=== PATIENT | male | born 1950 | race African-American/Black ===

== ENCOUNTER 2016-10-18 08:05 | Observation (INO) ==
[2016-10-18] MEDS ORDERED: DILTIAZEM 100 MG VIAL.ADD IV STA (08:21)
[2016-10-18] MEDS ORDERED: DILTIAZEM 50 MG/10 ML VIAL IV ONE (08:25)
[2016-10-18] MEDS ORDERED: DILTIAZEM 100 MG VIAL.ADD IV ONE (08:25)
[2016-10-18] MEDS ORDERED: DILTIAZEM INJ 100 MG in SODIUM CHLORIDE 0.9% 100 ML IV SCH (08:30)
[2016-10-18 08:36] LABS: Basophils % 0.7 % (0.0-0.8); Eosinophils # 0.1 10*3/uL (0.0-0.87); Eosinophils % 2.3 % (0.00-10.9); Hematocrit 42.8 VOL% (42.0-52.0); Hemoglobin 14.7 GM/DL (14.0-18.0); Immature Granulocytes % 0.2 %; Immature Granulocytes Absolute 0.01 #; Lymphocytes # 2.2 10*3/uL (1.4-4.0); Lymphocytes % 37.9 % (21.2-54.2); Mean Corpuscular HGB Conc 34.3 GM/DL (32-36); Mean Corpuscular Hemoglobin 32 PG (27-34); Mean Corpuscular Volume 93.7 FL (87-102); Mean Platelet Volume 10.1 FL (9.6-12.0); Monocytes # 0.7 10*3/uL (0.11-0.8); Monocytes % 11.7 % (1.7-12.7); Neutrophils # 2.7 10*3/uL (1.4-7.4); Neutrophils % 47.2 % (38.7-73.9); Platelet Count 147 T/CUMM (130-400); Red Blood Count 4.57 MC/CUMM (3.8-5.5); Red Cell Distribution Width 14.1 % (9.3-17.3); White Blood Count 5.8 T/CUMM (4-12)
[2016-10-18 08:46] LABS: INR 1.1; PT Patient Result 11.6 SECS
--- NOTE | 2016-10-18 08:54 | Emergency Department Note ---
Orquidea Zarate Hilary, am scribing for, and in the presence of, Bc Watson MD 08: 36. Shirley Zarate James D, MD, personally performed the services described in this documentation, ascribed by Elba Heard in my presence, and it is both accurate and complete [id number] . Arrival - Arrival Chief Complaint: Syncope Stated Complaint: syncope Mode of Arrival: Stretcher Limitations: No Limitations Source: Patient, Significant other (), RN Notes Reviewed Time Seen by Provider: 10/18/16 08:20 - History of Present Illness HPI Narrative: Pt is a 66 y/o black male brought into the ED via EMS for c/o chest pain which onset 3 days ago. Pt confirms SOB, moderate CP, and left shoulder pain but denies abdominal pain. Pts states that he fell out in orthodoxy yesterday. Pt is a poor historian and isn't talking or answer questions with more than one word. No other complaints or problems stated in the ED. Onset (ago): day(s) Consistency: intermittent Severity: moderate Allergies/Adverse Reactions: Allergies Allergy/AdvReac Type Severity Reaction Status Date / Time No Known Allergies Allergy Verified 10/18/16 08:43 Home Medications: Home Medications Medication Instructions Recorded Confirmed Type Aspirin [Ecotrin] 81 mg PO DAILY 01/18/15 05/28/16 History Simvastatin [Zocor] 40 mg PO DAILY 01/18/15 05/28/16 History cloNIDine TAB [Catapres Tab] 0.2 mg PO DAILY 01/18/15 05/28/16 History Calcium Carbonate Chew [Tums] 3 tablet PO QID 05/04/16 05/28/16 History Cyclobenzaprine [Flexeril] 10 mg PO Q12H PRN #10 tablet 05/28/16 Rx Review of System - Review of System 12 point system: reviewed and no additional remarkable complaints except as stated - Review of System Respiratory: Present: respiratory distress (SOB) Cardiovascular: Present: chest pain, syncope (1 day ago) Musculoskeletal: Present: arm pain (left shoulder pain) Medical,Surgical,& Family Hx - Medical History Cardio: History of: Hypertension, [place] HEENT: History of: Eye Problem (GLASSES) Endocrine: History of: Dyslipidemia Respiratory: History of: Obstructive Sleep Apnea (SLEEPS WITH CPAP), Pneumonia Renal: History of: Dialysis (M, W, F), Renal Failure Musculoskeletal: No history of: Back/Neck Problems Other: No history of: Anesthesia Reactions, Cancer - Surgical History Cardiac Surgeries: Sugical HX of: Cardiac Catheterization (STENT) HEENT Surgeries: Surgical HX of: Tonsilectomy & Adenoidectomy Patient denies: Eye Surgery Abdominal Surgeries: Surgical HX of: Colonoscopy, EGD, Hernia Repair Patient denies: Appendectomy, Cholecystectomy Orthopedic Surgeries: Surgical HX of;: Orthopedic Surgery (right hip replacement (total)), Total Hip Replacement (RIGHT) - Family History Family History: Reports;: Family Cancer (brother brain), Family Diabetes (mother ), Family Hypertension (mother father), Family Stroke - Social History Smoking Status: Never smoker Exam Physical Examination: GENERAL: This is a pale diaphoretic male, well-developed in no apparent distress. VITAL SIGNS: Temperature: Pulse: Respiratory: Blood Pressure: O2Sat: HEENT: Head is normocephalic and atraumatic. Pupils are equally round and reactive to light. Extraocular movement are intact. Oropharynx is benign with moist mucous membranes. NECK: Neck is soft and supple without tenderness. There are no masses. There is no lymphadenopathy. LUNGS: Lungs are clear to auscultation bilaterally. Chest rises symmetrically. There is no chest wall tenderness. CV: Heart is tachycardic rate and rhythm without murmurs, rubs, or gallops. ABDOMEN: Abdomen is soft, non-tender to palpation. There are no abnormal masses palpated. There is no organomegaly. Bowel sounds are present and active. SKIN: Skin is palor, warm and dry. No rash. EXTREMITIES: Patient has full range of motion without tenderness. There is no pedal edema. NEUROLOGIC: Awake, alert, and oriented x4. Cranial nerves II through XII are grossly intact. There are no motorsensory deficits. PSYCHIATRIC: Normal affect. Normal mood. Vital Signs: Vital Signs Temperature 97.0 F L 10/18/16 08:05 Pulse Rate 146 H 10/18/16 08:05 Respiratory Rate 18 10/18/16 08:05 Blood Pressure 135/80 10/18/16 08:05 Course Course Narrative: Cardizem bolus and infusion given. Patient had marked improvement in his symptoms. Near syncope resolved. Heart rate decreased into the 80s-90s. - Consultations Consultation #1: Discussed with hospitalist. Patient will be admitted to their service. Time: 09:32 Results - Labs CBC & BMP: 10/18/16 08:29 10/18/16 08:29 Lab Results: I have reviewed the patients labs Labs: Laboratory Tests 10/18/16 08:29 WBC 5.8 RBC 4.57 Hgb 14.7 Hct 42.8 Laboratory Tests 10/18/16 10/18/16 08:29 08:29 INR 1.1 PT Patient/Control Mix 11.6 Sodium 137 Potassium 3.9 Chloride 97 L Carbon Dioxide 26 Anion Gap 17.9 H BUN 48 H Creatinine 16.30 H BUN/Creatinine Ratio 2.00 L Magnesium 2.5 H Troponin I 0.127 H Albumin 2.9 L Globulin 3.9 H Albumin/Globulin Ratio 0.7 L - EKG EKG results: interpreted by ERMD - Impressions EKG: Narrow complex tachycardia with incomplete right bundle branch block, ST segment depression laterally and inferiorly consistent with ischemia. Left axis deviation. - Diagnostic Findings Procedure: Chest x-ray: image reviewed by me (Cardiomegaly, no infiltrates, no pleural effusions. Elevated left hemidiaphragm.) Disposition Clinical Impression: Narrow complex tachycardia, Syncope Case discussed with: patient Disposition: Disch To Home/Self Care Condition: Stable Time of Disposition: 09:33
--- NOTE | 2016-10-18 08:56 | XRay Report ---
XR chest 1V portable Indication: SOB Comparison: Chest x-ray dated May 28, 2016 Technique: Single frontal view of the chest. Findings: Continued borderline cardiomegaly. Continued mild left basilar atelectasis with elevation of left hemidiaphragm. It would be difficult to completely exclude underlying infection. Visualized osseous and surrounding soft tissue structures appear grossly unchanged. IMPRESSION: As above. PROCEDURE INTERPRETED AT [facility] DEPARTMENT OF RADIOLOGY Final Report Signed by: Dr Vick Lopez
[2016-10-18 08:59] LABS: Albumin 2.9 G/DL (3.4-5.0); Bilirubin,Total 0.5 MG/DL (0.2-1.0); Calcium 9.1 MG/DL (8.5-10.1); Magnesium 2.5 MG/DL (1.8-2.4); Osmolality,Calculated 285.8 MOS/KG (273-304); Potassium 3.9 MMOL/L (3.5-5.1); Total Protein 6.8 G/DL (6.4-8.3)
[2016-10-18 09:00] LABS: Troponin I Only 0.127 NG/ML (0.00-0.045)
[2016-10-18] MEDS ORDERED: MORPHINE 2 MG/1 ML SYRINGE IV PRN (10:10)
[2016-10-18] MEDS ORDERED: ACETAMINOPHEN 325 MG TABLET PO PRN (10:10)
[2016-10-18] MEDS ORDERED: ONDANSETRON 4 MG/2 ML VIAL IV PRN (10:10)
--- NOTE | 2016-10-18 10:23 | Hospitalist History & Physical ---
Assessment and Plan - Time spent with patient Time spent with patient: Greater than 30 minutes (1) Syncope Status: Acute Assessment and plan: Patient experienced a syncopal episodes in the last 2 days. Patient states that he last had an echo in 2016, however there are no hospital records of that echocardiogram. We will order a complete syncopal workup including head CT, carotid Dopplers, echocardiogram. Patient has been admitted for observation. Current Visit: Yes (2) ESRD (end stage renal disease) Status: Acute Assessment and plan: Patient currently on hemodialysis and dialyzes MWF. Last dialyzed on Tuesday. Attempted to dialyzed this morning before experiencing a syncopal episode we will consult nephrology for possible dialysis today and recommendations. Current Visit: No (3) Narrow complex tachycardia Status: Acute Assessment and plan: Patient was tacky upon admission with a heart rate of 145-146. Patient was placed on Cardizem drip in the ED with resultant heart rate in the mid 70s to mid 80s. Patient has been admitted to telemetry for further evaluation and monitoring. Current Visit: Yes History of Present Illness Chief complaint: syncope, chest pain History of present illness: Mr. Wolfe is a 66 year old -[place] male with a past medical history significant for hypertension, hyperlipidemia, GERD, previous [place] with stent placement in 2000 who presents to the emergency room via EMS for further evaluation of chest pain and syncope. Patient reports that he was at dialysis this morning when he experienced an apparent syncopal episode. Patient notes that he was last dialyzed on Tuesday with report of approximately 3400 cc. He states that he felt funny all weekend and passed out briefly at religion on yesterday, waking up in a cold sweat. Patient thought nothing of it and went on to dialysis this morning, however, he passed out again in the dialysis chair before even beginning dialysis and was rushed to the emergency room via EMS. Patient admits to feeling funny over the weekend and lightheaded this morning on his way to dialysis. He states that he "sat down in a dialysis chair and the next thing he remembers he was in the ER". He denies any palpitations, radiating chest pain, nausea vomiting diarrhea, numbness or tingling. EKG on admission revealed junctional tachycardia with possible a flutter, heart rate 145. Significant lab work: Sodium 137, potassium 3.9, chloride 97, CO2 26 , BUN 40, creatinine 16.30, glucose 101, calcium 9.1, magnesium 2.5. Troponin I 0.127. Patient was started on Cardizem drip in the ED with appropriate response. Heart rate is now down to mid 70s to mid 80s. Case has been discussed with Dr. Watson, ER physician, and Dr. Fajardo, admitting physician, and the patient will be admitted to the hospital medicine service for the evaluation and treatment. He is listed as full code. Home Medications Medication Instructions Recorded Confirmed Type Aspirin [Ecotrin] 81 mg PO DAILY 01/18/15 05/28/16 History Simvastatin [Zocor] 40 mg PO DAILY 01/18/15 05/28/16 History cloNIDine TAB [Catapres Tab] 0.2 mg PO DAILY 01/18/15 05/28/16 History Calcium Carbonate Chew [Tums] 3 tablet PO QID 05/04/16 05/28/16 History Cyclobenzaprine [Flexeril] 10 mg PO Q12H PRN #10 tablet 05/28/16 Rx Allergies Allergy/AdvReac Type Severity Reaction Status Date / Time No Known Allergies Allergy Verified 10/18/16 08:43 Medical,Surgical,& Family Hx - Medical History Cardio: History of: Hypertension, [place] HEENT: History of: Eye Problem (GLASSES) Endocrine: History of: Dyslipidemia Respiratory: History of: Obstructive Sleep Apnea (SLEEPS WITH CPAP), Pneumonia Renal: History of: Dialysis (M, W, F), Renal Failure Musculoskeletal: No history of: Back/Neck Problems Other: No history of: Anesthesia Reactions, Cancer - Surgical History Cardiac Surgeries: Sugical HX of: Cardiac Catheterization (STENT) HEENT Surgeries: Surgical HX of: Tonsilectomy & Adenoidectomy Patient denies: Eye Surgery Abdominal Surgeries: Surgical HX of: Colonoscopy, EGD, Hernia Repair Patient denies: Appendectomy, Cholecystectomy Orthopedic Surgeries: Surgical HX of;: Orthopedic Surgery (right hip replacement (total)), Total Hip Replacement (RIGHT) - Family History Family History: Reports;: Family Cancer (brother brain), Family Diabetes (mother ), Family Hypertension (mother father), Family Stroke - Social History Smoking Status: Never smoker Frequency of Alcohol Use: None Type of Drug Use: None Marital Status: Lives With:: Spouse Functional capacity: independent ambulation - Constitutional Constitutional: Present: headache(s). Absent: chills, fever(s), weakness - EENT Eyes: Absent: blurry vision, loss of vision Ears: Absent: decreased hearing, ear pain Nose, mouth and throat: Absent: sore throat, vertigo - Cardiovascular Cardiovascular: Present: chest pain at rest, lightheadedness, palpitations. Absent: dyspnea, radiating jaw, neck or arm pain - Respiratory Respiratory: Absent: cough, dyspnea, wheezing - Gastrointestinal Gastrointestinal: Absent: abdominal pain, constipation, diarrhea, nausea, vomiting - Genitourinary Genitourinary: Absent: difficulty urinating, dysuria - Musculoskeletal Musculoskeletal: Absent: arthralgias, joint swelling - Neurological Neurological: Present: dizziness, syncope - Psychiatric Psychiatric: Absent: anxiety, depression - Endocrine Endocrine: Present: cold intolerance. Absent: heat intolerance - Hematologic/Lymphatic Hematologic/Lymphatic: Absent: easy bleeding, easy bruising Exam - Constitutional Vitals: Period Temp Pulse Resp BP Sys/Arias Pulse Ox Last 24 Hr 97.0 F-97.0 F 72-146 18-18 111-138/80-92 98-100 Exam: General appearance: overweight, no acute distress - Head Head exam: Present: normocephalic, atraumatic - Eye Eye exam: Present: EOMI. Absent: conjunctival injection, nystagmus Pupils: Present: JUSTIN, normal accommodation - ENT ENT exam: Present: normal exam, normal external ear exam - Neck Neck exam: Present: normal inspection. Absent: lymphadenopathy, tenderness, thyromegaly - Respiratory Respiratory exam: Present: clear to auscultation bilaterally. Absent: rales, rhonchi, wheezes - Cardiovascular Cardiovascular exam: Present: regular rate and rhythm. Absent: carotid bruit, gallop, rubs - GI/Abdominal GI/Abdominal exam: Present: normal bowel sounds. Absent: ascites, distended, mass - Extremities Exam Extremities exam: Present: normal inspection, normal capillary refill. Absent: edema - Back Exam Back exam: Absent: CVA tenderness (L), CVA tenderness (R) - Neurological Exam Neurological exam: Present: alert, oriented X3 - Psychiatric Psychiatric exam: Present: normal affect, normal mood - Skin Skin exam: Present: normal color, warm, dry Results - Labs CBC & BMP: 10/18/16 08:29 10/18/16 08:29 Lab Results: I have reviewed the past 24 hour labs - EKG EKG results: interpreted by RODRIGUEZ EKG shows: tachycardia - Diagnostic Findings Procedure: Chest x-ray: image reviewed by me, report reviewed by me
--- NOTE | 2016-10-18 10:45 | EKG Report ---
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
[2016-10-18] MEDS: ENOXAPARIN 30 MG/0.3 ML SYRINGE SUBCUT SCH (11:35)
--- NOTE | 2016-10-18 11:49 | CT Report ---
CT head/brain wo con Indication: Syncope Comparison: None Technique: Multiple axial tomographic images of the brain were obtained without the use of intravenous contrast. Findings: Midline structures are nondisplaced. Mild global volume loss present. Mild periventricular and subcortical hypoattenuation noted which is nonspecific but consistent with chronic microvascular ischemic change. Demyelinating process and vasculitis less likely considerations. Probable partially visualized mucous retention cyst within the left maxillary sinus. Atherosclerotic calcifications demonstrated. There is mild prominence of the sella without associated soft tissue suggesting empty sella. Bilateral mastoid air cells are clear. IMPRESSION: No acute intracranial abdomen are demonstrated. Probable mild chronic microvascular ischemic change and volume loss. The CT exam was performed using one or more of the following dose reduction techniques: Automated exposure control, adjustment of the mA and/or kV according to patient size, or use of iterative reconstruction technique. PROCEDURE INTERPRETED AT [facility] DEPARTMENT OF RADIOLOGY Final Report Signed by: Dr Vick Lopez
[2016-10-18 12:02] LABS: Risk Ratio 3.27; Thyroid Stimulating Hormone 0.505 uIU/ml (0.358-3.74); VLDL CHOLESTEROL 15.8 MG/DL
--- NOTE | 2016-10-18 13:14 | Nephrology Consult Note ---
History of Present Illness Chief complaint: Passing out History of present illness: Mr. Wolfe is a 66 year old male with end-stage renal disease who dialyzes on a Tuesday basis in [facility]. Patient was admitted to the hospital this morning when he passed out at the dialysis center today. The patient had not been put on dialysis yet when he was about to get put on and subsequently passed out. The next thing the patient remembers is waking up in the emergency room. The patient states he passed out the day prior to admission as well. He does recall having a couple of sweats the past couple of days and feeling a little vaclept but does not report any fever. The patient also reports having a cough but states he did not think much of it and this cough is been nonproductive in nature. The patient does state he has had some chest pain today prior to his passing out. The patient does have a history of heart disease and had a coronary stent over 10 years ago. The patient does not have a tunneled dialysis catheter he uses a right arm AV access. The patient states he had dialysis Tuesday and had a little bit of a heavy pull with over 3 L of fluid removed going below his usual dry weight. The patient also states that since starting dialysis he has been slowly coming off his blood pressure medications and that actually last week his clonidine was decreased from 0.2 mg twice daily to 0.1 mg daily. The patient is seen on hemodialysis presently and is tolerating this well. ROS: Head - denies headaches ENT - denies sore throat Lymphatics - denies lymphadenopathy Hematology - denies bleeding problems Heart -positive chest pain Lungs - denies shortness of breath Abdomen - denies abdominal pain Musculoskeletal - denies arthritis Skin - denies rash Neurology - denies stroke General - denies fever PE: General: in no acute distress Eyes: Pupils are round and reactive, conjunctivae are clear ENT: Nose is clear, O/P is benign Neck: Supple, no thyromegaly Lymphatics: No cervical, supraclavicular or axillary adenopathy Heart: Regular rate and rhythm, no edema Lungs: Clear to auscultation anteriorly, chest expansion symmetric Abdomen: Soft, normoactive bowel sounds, no hepatomegaly Musculoskeletal: No joint erythema or effusions or joint asymmetry Skin: Normal turgor, normal hydration, no rash Neuro/Psych: Alert and cooperative with fair insight Home Medications Medication Instructions Recorded Confirmed Type Aspirin [Ecotrin] 81 mg PO DAILY 01/18/15 10/18/16 History Simvastatin [Zocor] 40 mg PO DAILY 01/18/15 10/18/16 History cloNIDine TAB [Catapres Tab] 0.1 mg PO DAILY 01/18/15 10/18/16 History Calcium Carbonate Chew [Tums] 3 tablet PO QID W/MEALS & HS 05/04/16 10/18/16 History Allergies Allergy/AdvReac Type Severity Reaction Status Date / Time No Known Allergies Allergy Verified 10/18/16 08:43 Medical,Surgical,& Family Hx - Medical History Cardio: History of: Hypertension, [place] HEENT: History of: Eye Problem (GLASSES) Endocrine: History of: Dyslipidemia Respiratory: History of: Obstructive Sleep Apnea (SLEEPS WITH CPAP), Pneumonia Renal: History of: Dialysis (M, W, F), Renal Failure Gastrointestinal: History of: GERD Musculoskeletal: No history of: Back/Neck Problems Other: No history of: Anesthesia Reactions, Cancer - Surgical History Cardiac Surgeries: Sugical HX of: Cardiac Catheterization (STENT) HEENT Surgeries: Surgical HX of: Tonsilectomy & Adenoidectomy Patient denies: Eye Surgery Abdominal Surgeries: Surgical HX of: Colonoscopy, EGD, Hernia Repair Patient denies: Appendectomy, Cholecystectomy Orthopedic Surgeries: Surgical HX of;: Orthopedic Surgery (right hip replacement (total)), Total Hip Replacement (RIGHT) - Family History Family History: Reports;: Family Cancer (brother brain), Family Diabetes (mother ), Family Hypertension (mother father), Family Stroke - Social History Smoking Status: Former smoker (Quit 35 years ago) Frequency of Alcohol Use: Occasionally Type of Drug Use: None Exam - Vital Signs Vital signs: Period Temp Pulse Resp BP Sys/Arias Pulse Ox Last 24 Hr 97.0 F-98.3 F 68-146 18-18 111-138/78-92 98-100 Results - Labs CBC & BMP: 10/18/16 08:29 10/18/16 08:29 Assessment and Plan (1) ESRD (end stage renal disease) Status: Acute Assessment and plan: We will continue his hemodialysis support while here, will minimize his ultrafiltration today. Current Visit: No (2) History of hypertension Status: Acute Assessment and plan: This patient's blood pressure presently is around 120-130 on the systolic side, his antihypertensives have been getting reduced lately on dialysis. Current Visit: Yes (3) Coronary artery disease Status: Acute Assessment and plan: Patient had a coronary artery stent over 10 years ago Current Visit: Yes (4) Secondary hyperparathyroidism Status: Acute Assessment and plan: Patient takes Tums for phosphate binder Current Visit: Yes (5) Obesity Status: Acute Current Visit: Yes (6) Narrow complex tachycardia Status: Acute Assessment and plan: Patient was noted to have a heart rate of around 145 this morning. He he has been started on diltiazem. Current Visit: Yes (7) Syncope Status: Acute Assessment and plan: The patient had a fairly vigorous pull on Tuesday's dialysis session. He has felt a little bit sluggish since then and had some sweats Tuesday when he passed out. I agree with holding his clonidine presently. Current Visit: Yes
--- NOTE | 2016-10-18 14:03 | EKG Report ---
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
--- NOTE | 2016-10-18 15:54 | Cardiology Consult Note ---
Assessment and Plan - Time spent with patient Time spent with patient: Greater than 30 minutes (1) Coronary artery disease Status: Chronic Assessment and plan: SEE PLAN OF CARE LISTED BELOW Current Visit: Yes (2) History of hypertension Status: Chronic Assessment and plan: SEE PLAN OF CARE LISTED BELOW Current Visit: Yes (3) Narrow complex tachycardia Status: Resolved Assessment and plan: SEE PLAN OF CARE LISTED BELOW Current Visit: Yes (4) Syncope Status: Resolved Assessment and plan: SEE PLAN OF CARE LISTED BELOW Current Visit: Yes (5) ESRD (end stage renal disease) Status: Chronic Assessment and plan: SEE PLAN OF CARE LISTED BELOW Current Visit: No (6) Hypertension Status: Chronic Assessment and plan: SEE PLAN OF CARE LISTED BELOW Current Visit: No History of Present Illness - Data of Consult Patient: known to practice within the last 3 years Consult date: 10/18/16 Requesting Physician: Jenni Fajardo - Consult Narrative Reason for consult: syncope, chest pain, atrial flutter History of present illness: 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 LILIAM GIBBONS Calvin, 66BM, routinely followed by Dr. Almonte. He was last seen in cardiology clinic March 04, 2016. Risk factors include: Known coronary artery disease (S/P PCI Diagonal 2000), hypertension, dyslipidemia, obesity. History of end stage renal disease requiring hemodialysis. March 18, 2016 Cardiolite stress test revealed low risk results. Last cardiac catheterization April 2005 (see report below). Patient presented to the emergency department this morning after experiencing a syncopal episode prior to beginning hemodialysis. Patient denies having had chest pain, heaviness, tightness, shortness of breath or heart racing prior to syncope. He states he had no warning signs and simply "woke up" in the emergency department. Tuesday, patient was attending christianity when he experienced a syncopal episode which lasted approximately 1 or 2 minutes, witnessed by others without seizure activity. He had not had breakfast however he usually does not eat breakfast. Tuesday evening around 5 PM, he began to feel weak in general but no chest pain, heaviness or tightness. Denies loss of bowel or bladder during his syncopal episodes. Upon arrival to the ED, patient was noted to be in a fast heart rate of 145 bpm , possible atrial flutter. He was diaphoretic. EKG does reveal ST deviation and moderate T-wave abnormality laterally but minimally changed since prior EKG from clinic. Troponins elevated at 0.257 - 0.483. (CPK, CK-MB have now been ordered.) Patient reports when he arrived to the emergency department he felt at left sided chest pressure. This lasted approximately 30 minutes, without radiation, nausea, vomiting. He is unable to write the discomfort on a scale of 1-10 and he is currently chest pain-free. He can identify no aggravating factors nor any alleviating factors. Patient reports he is normally very active. Tuesday, 6 days ago, patient states he cut 1-2 acres of grass with a push mower and can perform those activities without chest pain, heaviness, tightness or shortness of breath. April 20, 2005 [facility] revealed the followin. Significant disease in the mid to distal diagonal branch, and an RV marginal. Mild disease in other vessels. 2. No significant disease in the major vessels. 3. Moderate global left ventricular systolic dysfunction with global hypokinesis number next mild elevation LVEDP. 4. Patent prior stented site of the proximal diagonal. I will add CPK, CK-MB to his lab draws with his troponin. Continue to monitor his telemetry. I have seen no actual atrial flutter however given the heart rate on arrival it very well may be a flutter. Echocardiogram has been ordered. February 2016, it appears one was ordered from clinic however these results are not available. D-dimer has been ordered given his recurrent syncopal episodes. We discussed the possibility of cardiac catheterization in his future given the fact that he does have known coronary artery disease. We will continue to cycle his cardiac biomarkers. He is having no chest pain, heaviness or tightness. Of note, the patient reports that he did not have typical anginal symptoms when he required stenting of his diagonal branch. Carotid ultrasounds have been ordered, CT head reveals no acute abnormality. Orthostatic vital signs have been ordered. Will stop IV Diltiazem and transition to oral, short acting calcium channel roxy. Will further discuss with Dr. Almonte and await his recommendations. ASSESSMENT/PLAN: 1. SYNCOPE - continue to monitor telemetry for arrhythmia, echo ordered, d- dimer pending. Patient may be a candidate for event monitor at discharge if no etiology of syncope can be determined. Possibly could be considered for Reveal device. 2. ARRYTHMIA SUSPECTED TO BE ATRIAL FLUTTER - we will continue to monitor closely 3. KNOWN CAD S/P PCI DIAGONAL 2000 - denies chest pain at this time. Will continue to monitor CIE. 4. ELEVATED TROPONIN - Continue current plan of care 5. HYPERTENSION - Catapres 0.2mg daily has been discontinued. Starting low dose CCB for suspected atrial flutter 6. DYSLIPIDEMIA - FLP in the morning. Continue lipid lowering agent 7. ESRD - HD . He is on the renal transplant list and follows up with [facility] CC: Jenni Fajardo MD - Home Medications and Allergies Home Medications: Home Medications Medication Instructions Recorded Confirmed Type Aspirin [Ecotrin] 81 mg PO DAILY 01/18/15 10/18/16 History Simvastatin [Zocor] 40 mg PO DAILY 01/18/15 10/18/16 History cloNIDine TAB [Catapres Tab] 0.1 mg PO DAILY 01/18/15 10/18/16 History Calcium Carbonate Chew [Tums] 3 tablet PO QID W/MEALS & HS 05/04/16 10/18/16 History Allergies/Adverse Reactions: Allergies Allergy/AdvReac Type Severity Reaction Status Date / Time No Known Allergies Allergy Verified 10/18/16 08:43 Review of systems: REVIEW OF SYSTEMS: See HPI - Constitutional Constitutional: Denies fatigue. Absent: syncope, anorexia, night sweats - EENT Eyes: Occasional blurred vision but no loss of vision or diplopia. Ears: decreased hearing but denies ear pain, ear discharge - Cardiovascular Cardiovascular: Present: chest pain this morning at rest. Denies chest pain on exertion or dyspnea on exertion, palpitations. Reports no more lower extremity edema since starting dialysis. Absent: chest pain with deep breath, claudication - Respiratory Respiratory: Denies LUJAN, cough. Absent: wheezing, hemoptysis, change in phlegm color - Gastrointestinal Gastrointestinal: Denies constipation, abdominal pain, hematemesis, hematochezia , melena, change in bowel habits, nausea - Genitourinary Genitourinary: Absent: difficulty urinating, dysuria, urinary hesitancy, flank pain - Musculoskeletal Musculoskeletal: Present: back pain Absent: joint swelling, muscle cramps, muscle weakness - Neurological Neurological: Present: normal gait without frequent falls. Absent: hemiparesis - Psychiatric Psychiatric: Absent: anxiety, depression, difficulty concentrating - Endocrine Endocrine: Absent: cold intolerance, heat intolerance, polyuria, polyphagia, polydipsia - Hematologic/Lymphatic Hematologic/Lymphatic: Present: easy bruising. Absent: easy bleeding, easy bruisability -Integumentary Integumentary: Absent: lesions, rashes, skin breakdown Medical,Surgical,& Family Hx - Medical History Cardio: History of: CAD, Hypertension, [place] No history of: Cardiac Dysrhythmia HEENT: History of: Eye Problem (GLASSES) Endocrine: History of: Dyslipidemia Respiratory: History of: Obstructive Sleep Apnea (SLEEPS WITH CPAP), Pneumonia Renal: History of: Dialysis (M, W, F), Renal Failure Gastrointestinal: History of: GERD Musculoskeletal: No history of: Back/Neck Problems Other: No history of: Anesthesia Reactions, Cancer - Surgical History Cardiac Surgeries: Sugical HX of: Cardiac Catheterization (STENT) HEENT Surgeries: Surgical HX of: Tonsilectomy & Adenoidectomy Patient denies: Eye Surgery Abdominal Surgeries: Surgical HX of: Colonoscopy, EGD, Hernia Repair Patient denies: Appendectomy, Cholecystectomy Orthopedic Surgeries: Surgical HX of;: Orthopedic Surgery (right hip replacement (total)), Total Hip Replacement (RIGHT) - Family History Family History: Reports;: Family Cancer (brother brain), Family Diabetes (mother ), Family Hypertension (mother father), Family Stroke - Social History Smoking Status: Former smoker (Quit 35 years ago) Frequency of Alcohol Use: Occasionally Type of Drug Use: None Physical Examination Vital Signs Temp Pulse Resp BP Pulse Ox 97.0 F L 146 H 18 135/80 98 10/18/16 08:05 10/18/16 08:05 10/18/16 08:05 10/18/16 08:05 10/18/16 08:05 General: [Appears well with no apparent distress.] [Pleasant and cooperative. ] [Appears comfortable.] HEENT: [PERRL, normocephalic, atraumatic. Mucous membranes moist. No jaundice noted. Conjunctiva moist and clear, sclerae anicteric] Neck: Unable to assess for JVD due to habitus. No thyromegaly or lymphadenopathy noted. No carotid bruit appreciated Cardiac: [Regular rate and rhythm.] [No obvious murmur rub or gallop.] Lungs: [Clear to auscultation without accessory muscle use to assist the respiratory pattern.] Not requiring oxygen Abdomen: Soft, bowel sounds normoactive. Nontender and nondistended. No abdominal bruit or thrill noted. No masses noted. Musculoskeletal: No fluid collection. Decreased range of motion is noted. Extremities: No clubbing, cyanosis noted. [ No edema noted.] Upper extremity pulses 2+. Lower extremity pulses 2+. Capillary refill less than 3 seconds. Skin: No unusual lesions or rashes. No skin breakdown appreciated. Neuro: Awake, alert and oriented 3. Moves all extremities well without hemiparesis or paralysis. No essential tremor is appreciated. Result/EKG - Labs CBC & BMP: 10/18/16 08:29 10/18/16 08:29 Lab Results: I have reviewed the past 24 hour labs Labs: Laboratory Results - last 24 hr 10/18/16 10/18/16 10/18/16 08:29 08:29 08:29 WBC 5.8 RBC 4.57 Hgb 14.7 Hct 42.8 MCV 93.7 MCH 32 MCHC 34.3 RDW 14.1 Plt Count 147 MPV 10.1 Neut % (Auto) 47.2 Lymph % (Auto) 37.9 [place] % (Auto) 11.7 Eos % (Auto) 2.3 Baso % (Auto) 0.7 Neut # (Auto) 2.7 Lymph # (Auto) 2.2 [place] # (Auto) 0.7 Eos # (Auto) 0.1 Baso # (Auto) 0.0 Immature Gran % 0.2 Nucleated RBC % 0.0 Immature Gran # 0.01 Nucleated RBCs # 0.00 INR 1.1 PT Patient/Control Mix 11.6 Sodium 137 Potassium 3.9 Chloride 97 L Carbon Dioxide 26 Anion Gap 17.9 H BUN 48 H Creatinine 16.30 H GFR Calculation 4 BUN/Creatinine Ratio 2.00 L Glucose 101 Calculated Osmolality 285.8 Calcium 9.1 Magnesium 2.5 H Total Bilirubin 0.50 AST 24 ALT 23 Alkaline Phosphatase 75 Troponin I 0.127 H B-Natriuretic Peptide Total Protein 6.8 Albumin 2.9 L Globulin 3.9 H Albumin/Globulin Ratio 0.7 L Triglycerides Cholesterol LDL Cholesterol VLDL Cholesterol HDL Cholesterol Heart Disease Risk Ratio Free T4 TSH 3rd Generation 10/18/16 10/18/16 10/18/16 10:45 10:45 10:45 WBC RBC Hgb Hct MCV MCH MCHC RDW Plt Count MPV Neut % (Auto) Lymph % (Auto) [place] % (Auto) Eos % (Auto) Baso % (Auto) Neut # (Auto) Lymph # (Auto) [place] # (Auto) Eos # (Auto) Baso # (Auto) Immature Gran % Nucleated RBC % Immature Gran # Nucleated RBCs # INR PT Patient/Control Mix Sodium Potassium Chloride Carbon Dioxide Anion Gap BUN Creatinine GFR Calculation BUN/Creatinine Ratio Glucose Calculated Osmolality Calcium Magnesium Total Bilirubin AST ALT Alkaline Phosphatase Troponin I B-Natriuretic Peptide 371 H Total Protein Albumin Globulin Albumin/Globulin Ratio Triglycerides 79 Cholesterol 147 LDL Cholesterol 96.0 VLDL Cholesterol 15.8 HDL Cholesterol 45 Heart Disease Risk Ratio 3.27 Free T4 1.20 TSH 3rd Generation 0.505 10/18/16 10/18/16 10:45 12:56 WBC RBC Hgb Hct MCV MCH MCHC RDW Plt Count MPV Neut % (Auto) Lymph % (Auto) [place] % (Auto) Eos % (Auto) Baso % (Auto) Neut # (Auto) Lymph # (Auto) [place] # (Auto) Eos # (Auto) Baso # (Auto) Immature Gran % Nucleated RBC % Immature Gran # Nucleated RBCs # INR PT Patient/Control Mix Sodium Potassium Chloride Carbon Dioxide Anion Gap BUN Creatinine GFR Calculation BUN/Creatinine Ratio Glucose Calculated Osmolality Calcium Magnesium Total Bilirubin AST ALT Alkaline Phosphatase Troponin I 0.257 H D 0.483 H D B-Natriuretic Peptide Total Protein Albumin Globulin Albumin/Globulin Ratio Triglycerides Cholesterol LDL Cholesterol VLDL Cholesterol HDL Cholesterol Heart Disease Risk Ratio Free T4 TSH 3rd Generation - Diagnostic Findings Procedure: Chest x-ray: report reviewed by me, CT: report reviewed by me (CT head) - EKG EKG results: interpreted by me EKG shows: sinus rhythm
--- NOTE | 2016-10-18 16:36 | Ultrasound Report ---
History is syncope Grayscale, spectral Doppler, and color flow analysis performed and interpreted There is a mild amount of soft and partially calcified plaque in both proximal internal carotid arteries Maximum systolic velocities are 68 in the right and 61 the left Peak systolic ratios are 1.4 and the right and 1.0 on the left There is antegrade flow in both vertebral arteries Impression: Mild amount of plaque with less than 50% diameter stenoses bilaterally by NASCET criteria PROCEDURE INTERPRETED AT [facility] DEPARTMENT OF RADIOLOGY Final Report Signed by: Dr. Denia Brown
[2016-10-18 17:39] LABS: Troponin I Only 0.745 NG/ML (0.00-0.045)
[2016-10-18] MEDS: CALCIUM CARBONATE CHEW 500 MG TABLET PO SCH ×2 (17:51→21:29)
[2016-10-18] MEDS: DILTIAZEM 30 MG TABLET PO SCH ×2 (17:57→21:29)
--- NOTE | 2016-10-18 18:09 | ECHO Report ---
Aiden Torin Exam Date: 10/18/2016 13:04 Referring Physician: Technologist: Shahana Smalls RDCS Age: 66 Ht (in): 73 Wt (lb): 262 Gender: M Exam Location: [facility] Echo Indications: Syncope and collapse, End stage renal disease, Chest pain, unspecified, Essential (primary) hypertension, Hyperlipidemia, unspecified, GERD, AKSHAT, CAD with previous stent BP: 121 / 78 HR: 62 Rhythm: Sinus Technical Quality: Good IMPRESSIONS Mild left ventricular hypertrophy. Left ventricular ejection fraction is estimated at 45 - 50 %. Mild atrial enlargement in apical view (elongated RA). Mild atrial enlargement in apical view (elongated LA). Mild mitral annular calcification. Aortic valve sclerosis without stenosis or regurgitation. Pulmonary artery systolic pressure is normal. Normal pericardium without effusion. MEASUREMENTS (Male / Female) Normal Values 2D ECHO LV Diastolic Diameter PLAX 4.6 cm 4.2 - 5.9 / 3.9 - 5.3 cm LV Systolic Diameter PLAX 3.9 cm LV Fractional Shortening PLAX 15.7 % IVS Diastolic Thickness 1.1 cm 0.6 - 1.0 / 0.6 - 0.9 cm LVPW Diastolic Thickness 1.1 cm 0.6 - 1.0 / 0.6 - 0.9 cm RV Internal Dim ED PLAX 4.0 cm Aortic Root Diameter 3.3 cm LA Systolic Diameter LX 3.5 cm 3.0 - 4.0 / 2.7 - 3.8 cm FINDINGS Left Ventricle Normal left ventricular cavity size. Mild left ventricular hypertrophy. Left ventricular ejection fraction is estimated at 45 - 50 %. Right Ventricle The right ventricle is normal in size and function. Right Atrium Mild atrial enlargement in apical view (elongated RA). Left Atrium Mild atrial enlargement in apical view (elongated LA). Mitral Valve Thickened mitral valve. Mild mitral annular calcification. No mitral valve regurgitation. Aortic Valve Aortic valve sclerosis without stenosis or regurgitation. Tricuspid Valve Morphologically normal tricuspid valve without significant stenosis or regurgitation. Pulmonary artery systolic pressure is normal. Pulmonic Valve Morphologically normal pulmonic valve without significant stenosis. There is no pulmonic regurgitation. Pericardium Normal pericardium without effusion. Aorta Normal ascending aorta dimension. Shakir Almonte MD (Electronically Signed) Final Date: 18 October 2016 18:08
[2016-10-18] MEDS: SIMVASTATIN 40 MG TABLET PO SCH (21:29)
[2016-10-19 01:33] LABS: Calcium 8.7 MG/DL (8.5-10.1); Magnesium 2.3 MG/DL (1.8-2.4); Osmolality,Calculated 281.7 MOS/KG (273-304); Potassium 3.6 MMOL/L (3.5-5.1)
[2016-10-19 01:40] LABS: Troponin I Only 0.803 NG/ML (0.00-0.045)
[2016-10-19 01:45] LABS: Basophils % 0.9 % (0.0-0.8); Eosinophils # 0.2 10*3/uL (0.0-0.87); Eosinophils % 3.5 % (0.00-10.9); Hematocrit 39.4 VOL% (42.0-52.0); Hemoglobin 13.5 GM/DL (14.0-18.0); Immature Granulocytes % 0.2 %; Immature Granulocytes Absolute 0.01 #; Lymphocytes # 1.7 10*3/uL (1.4-4.0); Lymphocytes % 37.3 % (21.2-54.2); Mean Corpuscular HGB Conc 34.3 GM/DL (32-36); Mean Corpuscular Hemoglobin 32 PG (27-34); Mean Corpuscular Volume 93.1 FL (87-102); Mean Platelet Volume 10.2 FL (9.6-12.0); Monocytes # 0.6 10*3/uL (0.11-0.8); Monocytes % 12.6 % (1.7-12.7); Neutrophils # 2.1 10*3/uL (1.4-7.4); Neutrophils % 45.5 % (38.7-73.9); Platelet Count 147 T/CUMM (130-400); Red Blood Count 4.23 MC/CUMM (3.8-5.5); White Blood Count 4.5 T/CUMM (4-12)
[2016-10-19 01:55] LABS: Risk Ratio 3.7; VLDL CHOLESTEROL 43.2 MG/DL
[2016-10-19] MEDS: CALCIUM CARBONATE CHEW 500 MG TABLET PO SCH ×2 (08:53→12:40)
[2016-10-19] MEDS: DILTIAZEM 30 MG TABLET PO SCH (08:54)
[2016-10-19] MEDS: SIMVASTATIN 40 MG TABLET PO SCH (08:55)
[2016-10-19] MEDS ORDERED: PANTOPRAZOLE 40 MG TABLET PO SCH (09:00)
[2016-10-19] MEDS ORDERED: ASPIRIN EC 81 MG TABLET PO SCH (09:00)
[2016-10-19] MEDS: ENOXAPARIN 30 MG/0.3 ML SYRINGE SUBCUT SCH (10:57)
--- NOTE | 2016-10-19 11:29 | Cardiology Progress Note ---
Assessment and Plan - Time spent with patient Time spent with patient: Less than 30 minutes (1) Syncope Status: Resolved Assessment and plan: See plan of care listed below. Current Visit: Yes (2) SVT (supraventricular tachycardia) Status: Acute Assessment and plan: See plan of care listed below. Current Visit: Yes (3) Coronary artery disease Status: Chronic Assessment and plan: See plan of care listed below. Current Visit: Yes (4) Elevated troponin I measurement Status: Acute Assessment and plan: See plan of care listed below. Current Visit: Yes (5) Hypertension Status: Chronic Assessment and plan: See plan of care listed below. Current Visit: No (6) Dyslipidemia Status: Acute Assessment and plan: See plan of care listed below. Current Visit: Yes (7) ESRD (end stage renal disease) Status: Chronic Assessment and plan: See plan of care listed below. Current Visit: No Cardiology - PN: Subj Interval history: [employer]: DR. ALMONTE PCP: DR. LILIAM GIBBONS Mr. Wolfe is a 66 year old -[place]is[place] male who presented to the emergency department for further evaluation of syncopal episode and to near syncopal episodes. Upon arrival to the emergency department, Mr. Wolfe was noted to have a tachyarrhythmia and diaphoresis. EKG revealed ST deviation and moderate T-wave abnormality laterally but minimally changed since prior EKG at the clinic. He had trivial troponin elevation and had minimal left-sided chest pressure. He was found to be in SVT and was given IV Cardizem which resolved the SVT. He was then started on Cardizem at 30 mg p.o. 4 times daily. He was borderline hypotensive and his clonidine was discontinued. Today, he has maintained normal sinus rhythm with rates of 60s. His blood pressures been well controlled. At this time, he is stable from a cardiac standpoint and could possibly be discharged home to follow-up with Dr. Almonte in 2 months time. He will need to keep a blood pressure and heart rate log and bring it to his follow-up appointment. His echocardiogram on 10/18/2016 revealed: Mild left ventricular hypertrophy. Left ventricular ejection fraction is estimated at 45 - 50 %. Mild atrial enlargement in apical view (elongated RA). Mild atrial enlargement in apical view (elongated LA). Mild mitral annular calcification. Aortic valve sclerosis without stenosis or regurgitation. Pulmonary artery systolic pressure is normal. Normal pericardium without effusion. ASSESSMENT/PLAN: 1. SYNCOPE -no further episodes at this time. We will continue to monitor. 2. SVT - we will continue to monitor closely. He has had no further dysrhythmias. He has maintained in normal sinus rhythm with rates in the 60s on p.o. Cardizem. 3. KNOWN CAD S/P PCI DIAGONAL 2000 - denies chest pain at this time. Will continue to monitor CIE. 4. ELEVATED TROPONIN - Continue current plan of care 5. HYPERTENSION - Catapres 0.2mg daily has been discontinued. He was started on p.o. Cardizem for his SVT. 6. DYSLIPIDEMIA -triglycerides 216, cholesterol 148, LDL 83, HDL 40. He has been started on simvastatin 40 mg p.o. daily. 7. ESRD - HD . He is on the renal transplant list and follows up with [facility]. Dr. Almonte to follow with further plan and addendum. Exam (Progress Note) - Constitutional Vitals: Period Temp Pulse Resp BP Sys/Arias Pulse Ox Last 24 Hr 97.5 F-99.3 F 63-72 2-20 110-140/67-87 96-100 Exam: General: [Appears well with no apparent distress.] [Pleasant and cooperative. ] [Appears comfortable.] HEENT: [PERRL, normocephalic, atraumatic. Mucous membranes moist. No jaundice noted. Conjunctiva moist and clear, sclerae anicteric] Neck: Unable to assess for JVD due to habitus. No thyromegaly or lymphadenopathy noted. No carotid bruit appreciated Cardiac: [Regular rate and rhythm.] [No obvious murmur rub or gallop.] Lungs: [Clear to auscultation without accessory muscle use to assist the respiratory pattern.] Not requiring oxygen Abdomen: Soft, bowel sounds normoactive. Nontender and nondistended. No abdominal bruit or thrill noted. No masses noted. Musculoskeletal: No fluid collection. Decreased range of motion is noted. Extremities: No clubbing, cyanosis noted. [ No edema noted.] Upper extremity pulses 2+. Lower extremity pulses 2+. Capillary refill less than 3 seconds. Skin: No unusual lesions or rashes. No skin breakdown appreciated. Neuro: Awake, alert and oriented 3. Moves all extremities well without hemiparesis or paralysis. No essential tremor is appreciated. Result/EKG - Labs CBC & BMP: 10/19/16 00:49 10/19/16 00:49 Lab Results: I have reviewed the past 24 hour labs Labs: Laboratory Results - last 24 hr 10/18/16 10/18/16 10/18/16 10:45 10:45 10:45 WBC RBC Hgb Hct MCV MCH MCHC RDW Plt Count MPV Neut % (Auto) Lymph % (Auto) [place] % (Auto) Eos % (Auto) Baso % (Auto) Neut # (Auto) Lymph # (Auto) [place] # (Auto) Eos # (Auto) Baso # (Auto) Immature Gran % Nucleated RBC % Immature Gran # Nucleated RBCs # D-Dimer, Quantitative Sodium Potassium Chloride Carbon Dioxide Anion Gap BUN Creatinine GFR Calculation BUN/Creatinine Ratio Glucose Calculated Osmolality Calcium Magnesium Total Creatine Kinase CK-MB (CK-2) Troponin I B-Natriuretic Peptide 371 H Triglycerides 79 Cholesterol 147 LDL Cholesterol 96.0 VLDL Cholesterol 15.8 HDL Cholesterol 45 Heart Disease Risk Ratio 3.27 Free T4 1.20 TSH 3rd Generation 0.505 10/18/16 10/18/16 10/18/16 10:45 12:56 16:03 WBC RBC Hgb Hct MCV MCH MCHC RDW Plt Count MPV Neut % (Auto) Lymph % (Auto) [place] % (Auto) Eos % (Auto) Baso % (Auto) Neut # (Auto) Lymph # (Auto) [place] # (Auto) Eos # (Auto) Baso # (Auto) Immature Gran % Nucleated RBC % Immature Gran # Nucleated RBCs # D-Dimer, Quantitative Sodium Potassium Chloride Carbon Dioxide Anion Gap BUN Creatinine GFR Calculation BUN/Creatinine Ratio Glucose Calculated Osmolality Calcium Magnesium Total Creatine Kinase CK-MB (CK-2) Troponin I 0.257 H D 0.483 H D 0.741 H D B-Natriuretic Peptide Triglycerides Cholesterol LDL Cholesterol VLDL Cholesterol HDL Cholesterol Heart Disease Risk Ratio Free T4 TSH 3rd Generation 10/18/16 10/18/16 10/19/16 16:55 16:55 00:49 WBC 4.5 RBC 4.23 Hgb 13.5 L Hct 39.4 L MCV 93.1 MCH 32 MCHC 34.3 RDW 14.0 Plt Count 147 MPV 10.2 Neut % (Auto) 45.5 Lymph % (Auto) 37.3 [place] % (Auto) 12.6 Eos % (Auto) 3.5 Baso % (Auto) 0.9 H Neut # (Auto) 2.1 Lymph # (Auto) 1.7 [place] # (Auto) 0.6 Eos # (Auto) 0.2 Baso # (Auto) 0.0 Immature Gran % 0.2 Nucleated RBC % 0.0 Immature Gran # 0.01 Nucleated RBCs # 0.00 D-Dimer, Quantitative 1.4 Sodium Potassium Chloride Carbon Dioxide Anion Gap BUN Creatinine GFR Calculation BUN/Creatinine Ratio Glucose Calculated Osmolality Calcium Magnesium Total Creatine Kinase 234 CK-MB (CK-2) 3.4 Troponin I 0.745 H B-Natriuretic Peptide Triglycerides Cholesterol LDL Cholesterol VLDL Cholesterol HDL Cholesterol Heart Disease Risk Ratio Free T4 TSH 3rd Generation 10/19/16 10/19/16 10/19/16 00:49 00:49 00:49 WBC RBC Hgb Hct MCV MCH MCHC RDW Plt Count MPV Neut % (Auto) Lymph % (Auto) [place] % (Auto) Eos % (Auto) Baso % (Auto) Neut # (Auto) Lymph # (Auto) [place] # (Auto) Eos # (Auto) Baso # (Auto) Immature Gran % Nucleated RBC % Immature Gran # Nucleated RBCs # D-Dimer, Quantitative Sodium 138 Potassium 3.6 Chloride 95 L Carbon Dioxide 31 Anion Gap 15.6 H BUN 32 H D Creatinine 12.10 H GFR Calculation 6 BUN/Creatinine Ratio 2.00 L Glucose 90 Calculated Osmolality 281.7 Calcium 8.7 Magnesium 2.3 Total Creatine Kinase 253 CK-MB (CK-2) 2.4 Troponin I 0.803 H B-Natriuretic Peptide Triglycerides 216 H Cholesterol 148 LDL Cholesterol 83.0 VLDL Cholesterol 43.2 HDL Cholesterol 40 Heart Disease Risk Ratio 3.70 Free T4 TSH 3rd Generation 10/19/16 08:20 WBC RBC Hgb Hct MCV MCH MCHC RDW Plt Count MPV Neut % (Auto) Lymph % (Auto) [place] % (Auto) Eos % (Auto) Baso % (Auto) Neut # (Auto) Lymph # (Auto) [place] # (Auto) Eos # (Auto) Baso # (Auto) Immature Gran % Nucleated RBC % Immature Gran # Nucleated RBCs # D-Dimer, Quantitative Sodium Potassium Chloride Carbon Dioxide Anion Gap BUN Creatinine GFR Calculation BUN/Creatinine Ratio Glucose Calculated Osmolality Calcium Magnesium Total Creatine Kinase 258 CK-MB (CK-2) 2.2 Troponin I 0.650 H B-Natriuretic Peptide Triglycerides Cholesterol LDL Cholesterol VLDL Cholesterol HDL Cholesterol Heart Disease Risk Ratio Free T4 TSH 3rd Generation - EKG EKG results: interpreted by me, sinus rhythm Specialty Discharge - Follow Up or Referrals Follow up with: Shakir Almonte MD [Physician] - (Follow up with Dr. Almonte in 2 months. )
[2016-10-19] MEDS ORDERED: DILTIAZEM CD 120 MG CAPSULE PO SCH (12:30)
--- NOTE | 2016-10-19 12:35 | Nephrology Progress Note ---
Nephrology - PN: Subj Interval history: Patient is feeling better today. He denies shortness of breath. Review of systems GI denies nausea or vomiting Physical exam general the patient's in no acute distress, he has no pitting edema 1. End-stage renal disease-we will continue hemodialysis support 2. Syncope-patient's had no further syncope or dizziness his heart rate is been under control, he has been started on oral diltiazem, and reviewing this symptomatology it sounds like the patient may have gotten volume depleted with his dialysis this past Tuesday and never really recuperated from this, I wonder if this drove his tachycardia. Until next time this happens he may want to drink some pickle juice in order to try and replete his intravascular volume. 3. Coronary artery disease 4. Secondary hyperparathyroidism From a renal standpoint patient is okay for discharge. Exam (PN)-Nephrology - Vital Signs Vital signs: Period Temp Pulse Resp BP Sys/Arias Pulse Ox Last 24 Hr 97.5 F-99.3 F 63-72 2-20 110-140/66-87 94-99 - Lab 10/19/16 00:49 10/19/16 00:49 Most recent lab results Calcium 8.7 MG/DL (8.5-10.1) 10/19/16 00:49 Magnesium 2.3 MG/DL (1.8-2.4) 10/19/16 00:49 Assessment and Plan (1) ESRD (end stage renal disease) Status: Chronic Assessment and plan: We will continue his hemodialysis support while here, will minimize his ultrafiltration today. Current Visit: No (2) History of hypertension Status: Chronic Assessment and plan: This patient's blood pressure presently is around 120-130 on the systolic side, his antihypertensives have been getting reduced lately on dialysis. Current Visit: Yes (3) Coronary artery disease Status: Chronic Assessment and plan: Patient had a coronary artery stent over 10 years ago Current Visit: Yes (4) Secondary hyperparathyroidism Status: Acute Assessment and plan: Patient takes Tums for phosphate binder Current Visit: Yes (5) Obesity Status: Acute Current Visit: Yes (6) Narrow complex tachycardia Status: Resolved Assessment and plan: Patient was noted to have a heart rate of around 145 this morning. He he has been started on diltiazem. Current Visit: Yes (7) Syncope Status: Resolved Assessment and plan: The patient had a fairly vigorous pull on Tuesday's dialysis session. He has felt a little bit sluggish since then and had some sweats Tuesday when he passed out. I agree with holding his clonidine presently. Current Visit: Yes Specialty Discharge - Follow Up or Referrals Follow up with: Shakir Almonte MD [Physician] - (Follow up with Dr. Almonte in 2 months. )
--- NOTE | 2016-10-19 15:08 | Discharge Summary ---
Hospital Course - Hospital Course Hospital Course: Patient is a 66-year-old -[place] male with a history of end-stage renal disease and hypertension who presented to the hospital with a chief complaint of syncope while at hemodialysis. Upon arrival he was noted to be hypotensive and in atrial flutter which responded well to IV diltiazem. He converted back to sinus and was started on oral low-dose Cardizem. He did tolerate hemodialysis well. Clonidine was held as well. Today he denies any lightheadedness or dizziness, chest pain, shortness of breath, palpitations, nausea, vomiting, diarrhea or constipation. No melena or bright red blood per rectum and no dysuria. He was seen by cardiology and nephrology during hospitalization was assisted with his management. No further workup was recommended per cardiology and recommended follow-up in a couple of months outpatient. Once he was cleared by all consultants, patient was discharged home in good condition. - Time spent with patient Time with patient DS: Greater than 30 minutes (35 minutes) Diagnosis - Discharge Diagnosis (1) Dyslipidemia Status: Acute (2) Elevated troponin I measurement Status: Acute (3) Obesity Status: Acute (4) SVT (supraventricular tachycardia) Status: Acute (5) Secondary hyperparathyroidism Status: Acute (6) Coronary artery disease Status: Chronic (7) History of hypertension Status: Chronic (8) Syncope Status: Resolved (9) ESRD (end stage renal disease) Status: Chronic Specialty Discharge - Follow Up or Referrals Follow up with: Shakir Almonte MD [Physician] - (Follow up with Dr. Almonte in 2 months. ) , pcp [Other] - 2 Weeks Discharge Plan - Discharge Data Disposition: Disch To Home/Self Care Condition at Discharge: Stable Discharge Diet: other (Renal diet) Activity: resume usual activities as tolerated Contact your physician if you experience:: fever over 101, Difficulty voiding, Redness or swelling, Nausea/Vomiting, Shortness of breath, Bleeding, pain uncontrolled by pain medications - Discharge Medications New Diltiazem Cd Cap [Cardizem CD] 120 mg PO DAILY #30 capsule Continue Simvastatin [Zocor] 40 mg PO DAILY Aspirin [Ecotrin] 81 mg PO DAILY Calcium Carbonate Chew [Tums] 3 tablet PO QID W/MEALS & HS Discontinued cloNIDine TAB [Catapres Tab] 0.1 mg PO DAILY - Follow Up or Referral Follow Up: Shakir Almonte MD [Physician] - (Follow up with Dr. Almonte in 2 months. ) - Forms/Instructions Exam - Constitutional Vitals: Period Temp Pulse Resp BP Sys/Arias Pulse Ox Last 24 Hr 97.5 F-99.3 F 63-72 2-20 110-140/66-87 94-99 Exam: Awake alert and oriented 3 lying in hospital bed comfortable in no acute distress Pupils are equal and reactive to light. Extraocular muscles are intact. Sclerae clear. Nares are patent. No discharge or epistaxis noted. Oropharynx is clear. Neck is supple. No lymphadenopathy or thyromegaly appreciated. No JVD. Cardiac exam reveals regular rate and rhythm. Normal S1-S2. No obvious murmurs rubs or gallops. Lungs are clear to auscultation bilaterally. Good aeration. Nonlabored breathing noted. Abdomen is soft. Nontender nondistended. Positive bowel sounds. No organomegaly or masses appreciated. Extremity exam reveals warm and well-perfused. No clubbing cyanosis or edema. Neuro exam was nonfocal. Discharge Results Procedures and tests throughout hospitalization: Pending Orders 10/20/16 04:00 BMP w/ Mg [Basic Metabolic Panel w/Mg] IN AM CBC [Comp Blood Count Auto Diff] IN AM 10/21/16 04:00 BMP w/ Mg [Basic Metabolic Panel w/Mg] IN AM CBC [Comp Blood Count Auto Diff] IN AM 10/22/16 04:00 BMP w/ Mg [Basic Metabolic Panel w/Mg] IN AM CBC [Comp Blood Count Auto Diff] IN AM Labs on day of discharge: Labs from last 24 hours 10/19/16 10/19/16 10/19/16 08:20 00:49 00:49 WBC RBC Hgb Hct MCV MCH MCHC RDW Plt Count MPV Neut % (Auto) Lymph % (Auto) [place] % (Auto) Eos % (Auto) Baso % (Auto) Neut # (Auto) Lymph # (Auto) [place] # (Auto) Eos # (Auto) Baso # (Auto) Immature Gran % Nucleated RBC % Immature Gran # Nucleated RBCs # D-Dimer, Quantitative Sodium 138 Potassium 3.6 Chloride 95 L Carbon Dioxide 31 Anion Gap 15.6 H BUN 32 H D Creatinine 12.10 H GFR Calculation 6 BUN/Creatinine Ratio 2.00 L Glucose 90 Calculated Osmolality 281.7 Calcium 8.7 Magnesium 2.3 Total Creatine Kinase 258 253 CK-MB (CK-2) 2.2 2.4 Troponin I 0.650 H 0.803 H Triglycerides Cholesterol LDL Cholesterol VLDL Cholesterol HDL Cholesterol Heart Disease Risk Ratio 10/19/16 10/19/16 10/18/16 00:49 00:49 16:55 WBC 4.5 RBC 4.23 Hgb 13.5 L Hct 39.4 L MCV 93.1 MCH 32 MCHC 34.3 RDW 14.0 Plt Count 147 MPV 10.2 Neut % (Auto) 45.5 Lymph % (Auto) 37.3 [place] % (Auto) 12.6 Eos % (Auto) 3.5 Baso % (Auto) 0.9 H Neut # (Auto) 2.1 Lymph # (Auto) 1.7 [place] # (Auto) 0.6 Eos # (Auto) 0.2 Baso # (Auto) 0.0 Immature Gran % 0.2 Nucleated RBC % 0.0 Immature Gran # 0.01 Nucleated RBCs # 0.00 D-Dimer, Quantitative Sodium Potassium Chloride Carbon Dioxide Anion Gap BUN Creatinine GFR Calculation BUN/Creatinine Ratio Glucose Calculated Osmolality Calcium Magnesium Total Creatine Kinase 234 CK-MB (CK-2) 3.4 Troponin I 0.745 H Triglycerides 216 H Cholesterol 148 LDL Cholesterol 83.0 VLDL Cholesterol 43.2 HDL Cholesterol 40 Heart Disease Risk Ratio 3.70 10/18/16 10/18/16 16:55 16:03 WBC RBC Hgb Hct MCV MCH MCHC RDW Plt Count MPV Neut % (Auto) Lymph % (Auto) [place] % (Auto) Eos % (Auto) Baso % (Auto) Neut # (Auto) Lymph # (Auto) [place] # (Auto) Eos # (Auto) Baso # (Auto) Immature Gran % Nucleated RBC % Immature Gran # Nucleated RBCs # D-Dimer, Quantitative 1.4 Sodium Potassium Chloride Carbon Dioxide Anion Gap BUN Creatinine GFR Calculation BUN/Creatinine Ratio Glucose Calculated Osmolality Calcium Magnesium Total Creatine Kinase CK-MB (CK-2) Troponin I 0.741 H D Triglycerides Cholesterol LDL Cholesterol VLDL Cholesterol HDL Cholesterol Heart Disease Risk Ratio DS: Provider Date of admission: 10/18/16 09:46 Primary care physician: Ayden Fernandez MD Attending physician on admission: Jenni Fajardo MD Consults: 10/18/16 10:55 Consult to Physician [CONS] Routine Comment: Consulting Provider: Juan Pablo Hernandez When should Consulting Provider be notified: Now Consult to Specialist Group: Nephrology Person Notified: SHARRI Date Notified: 10/18/16 Time Notified: 11:50 Consult Notification Comment: DR. SOLIS BOILER FITTER TODAY 10/18/16 12:16 Consult to Physician [CONS] Routine Comment: leti yan Consulting Provider: Cardiology - [facility] Consult to Specialist Group: Cardiology Person Notified: CORTNEY Date Notified: 10/18/16 Time Notified: 12:20 Discharging clinician: Rafaela Washington MD
[2016-10-19 16:18] VITALS: BP 133/73
== END 2016-10-19 16:20 | disposition home or self-care (01) ==
LOC: EDUNIT# → EDBD → N.EDINP 08:05 → N.ED 08:05 → SUATTDRO 09:46 → N.TELEN 10:30
PROVIDERS: ADMIT Internal Medicine; ATTEND Pediatrics

== ENCOUNTER 2016-11-29 08:51 | Inpatient (IN) ==
[2016-11-29] MEDS ORDERED: ASPIRIN 325 MG TABLET PO STA (09:10)
[2016-11-29] MEDS ORDERED: SODIUM CHLORIDE 0.9% 500 ML IV STA (09:12)
[2016-11-29] MEDS ORDERED: ASPIRIN 325 MG TABLET ONE (09:20)
[2016-11-29 09:40] LABS: Basophils % 0.8 % (0.0-0.8); Eosinophils # 0.2 10*3/uL (0.0-0.87); Eosinophils % 4.1 % (0.00-10.9); Hematocrit 41.6 VOL% (42.0-52.0); Hemoglobin 14.1 GM/DL (14.0-18.0); Immature Granulocytes % 0.2 %; Immature Granulocytes Absolute 0.01 #; Lymphocytes # 2.2 10*3/uL (1.4-4.0); Lymphocytes % 44.3 % (21.2-54.2); Mean Corpuscular HGB Conc 33.9 GM/DL (32-36); Mean Corpuscular Hemoglobin 31 PG (27-34); Mean Corpuscular Volume 90.4 FL (87-102); Mean Platelet Volume 9.7 FL (9.6-12.0); Monocytes # 0.4 10*3/uL (0.11-0.8); Monocytes % 8.3 % (1.7-12.7); Neutrophils # 2.1 10*3/uL (1.4-7.4); Neutrophils % 42.3 % (38.7-73.9); Platelet Count 171 T/CUMM (130-400); Red Cell Distribution Width 14.2 % (9.3-17.3); White Blood Count 4.9 T/CUMM (4-12)
[2016-11-29 10:15] LABS: Albumin 3.2 G/DL (3.4-5.0); Bilirubin,Total 0.4 MG/DL (0.2-1.0); Calcium 9.3 MG/DL (8.5-10.1); Potassium 4.4 MMOL/L (3.5-5.1); Total Protein 7.2 G/DL (6.4-8.3)
--- NOTE | 2016-11-29 10:36 | Emergency Department Note ---
Leonardo Zarate Manpreet, am scribing for, and in the presence of, Julio Marcos MD 09:18. Priti Zarate Phillip K, MD, personally performed the services described in this documentation, ascribed by Walt Patterson in my presence, and it is both accurate and complete . Arrival - Arrival Chief Complaint: Chest Pain ED Nursing Triage Note: PT SENT FROM DIALYSIS FOR C/O LEFT SIDED CHEST PAIN THAT RADIATES TO HIS LEFT SHOULDER AND ARM. PT STATES ONSET JUST BEFORE STARTING DIALYSIS. PT DESCRIBES FEELING LIKE HE IS LAYING ON A BALL. PT BECAME DIZZY WHEN HE SAT UP TO CHANGE INTO GOWN. 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 Mode of Arrival: Stretcher Limitations: No Limitations Source: Patient Time Seen by Provider: 11/29/16 09:10 - History of Present Illness HPI Narrative: Pt is a 66 y/o male, with PMHx of HTN, HI, CAD, HLD, and ESRF, who was brought to the ED via EMS from his dialysis appointment after the pt c/o CP that radiates to his left arm and shoulder. Pt states the pain started right before starting dialysis and is accompanied by SOB. Pt denies fever, cough, nausea, or vomiting. Pt was given 2 NTG BILLBOARD POSTER. Pt has dialysis appointments on [facility]. No other pains/complaints reported to ED. Onset (ago): hour(s) Consistency: constant Severity: moderate Severity scale (1-10): 4 Quality: sharp Allergies/Adverse Reactions: Allergies Allergy/AdvReac Type Severity Reaction Status Date / Time No Known Allergies Allergy Verified 11/29/16 09:06 Home Medications: Home Medications Medication Instructions Recorded Confirmed Type Aspirin [Ecotrin] 81 mg PO BEDTIME 01/18/15 11/29/16 History Simvastatin [Zocor] 40 mg PO BEDTIME 01/18/15 11/29/16 History Calcium Carbonate Chew [Tums] 3 tablet PO QID W/MEALS & HS 05/04/16 11/29/16 History cloNIDine TAB [Catapres Tab] 0.1 mg PO BEDTIME 11/29/16 11/29/16 History Review of System - Review of System 12 point system: reviewed and no additional remarkable complaints except as stated - Review of System Constitutional: Absent: chills, diaphoresis, fever Respiratory: Present: respiratory distress. Absent: cough Cardiovascular: Present: chest pain. Absent: dyspnea on exertion Gastrointestinal: Absent: abdominal pain, nausea Musculoskeletal: Present: arm pain (Left arm pain). Absent: back pain, lower back pain, leg pain Neurological: Absent: headache Medical,Surgical,& Family Hx - Medical History Cardio: History of: CAD, Hypertension, HI No history of: Cardiac Dysrhythmia HEENT: History of: Eye Problem (GLASSES) Endocrine: History of: Dyslipidemia Respiratory: History of: Obstructive Sleep Apnea (SLEEPS WITH CPAP), Pneumonia Renal: History of: Dialysis (M, W, F), Renal Failure Gastrointestinal: History of: GERD Musculoskeletal: No history of: Back/Neck Problems Other: No history of: Anesthesia Reactions, Cancer - Surgical History Cardiac Surgeries: Sugical HX of: Cardiac Catheterization (STENT) HEENT Surgeries: Surgical HX of: Tonsilectomy & Adenoidectomy Patient denies: Eye Surgery Abdominal Surgeries: Surgical HX of: Colonoscopy, EGD, Hernia Repair Patient denies: Appendectomy, Cholecystectomy Orthopedic Surgeries: Surgical HX of;: Orthopedic Surgery (right hip replacement (total)), Total Hip Replacement (RIGHT) - Family History Family History: Reports;: Family Cancer (brother brain), Family Diabetes (mother ), Family Hypertension (mother father), Family Stroke - Social History Smoking Status: Unknown if ever smoked Frequency of Alcohol Use: None Type of Drug Use: None Exam Vital Signs: Vital Signs Temperature 97.6 F 11/29/16 09:00 Pulse Rate 156 H 11/29/16 09:00 Respiratory Rate 20 11/29/16 09:00 Blood Pressure 89/60 11/29/16 09:00 O2 Sat by Pulse Oximetry 96 11/29/16 08:51 - General General appearance: alert, in no apparent distress - Head Head exam: Present: atraumatic, normocephalic, normal inspection - Eye Eye exam: Present: normal appearance, PERRL, EOMI - ENT ENT exam: Present: normal exam, normal oropharynx, mucous membranes moist, TM's normal bilaterally - Neck Neck exam: Present: normal inspection, full ROM, trachea midline - Chest Chest inspection: Present: normal inspection, symmetric chest wall rise. Absent : tenderness - Respiratory Respiratory exam: Present: normal lung sounds bilaterally. Absent: respiratory distress - Cardiovascular Cardiovascular exam: Present: normal rhythm, tachycardia, normal heart sounds - Abdominal Exam Abdominal exam: Present: soft, normal bowel sounds. Absent: distention, diminished bowel sounds - Extremities Exam Extremities exam: Present: normal inspection, full ROM. Absent: tenderness - Back Exam Back exam: Present: normal inspection, full ROM. Absent: tenderness - Neurological Exam Neurological exam: Present: alert, oriented X3, CN II-XII intact, reflexes normal - Psychiatric Psychiatric exam: Present: normal affect, normal mood - Skin Skin exam: Present: warm, dry, intact, normal color. Absent: pallor Course Course Narrative: Patient discussed with Dr. Robison who will see in the ED. patient was given Adenocard by Dr. Robison without any decrease in his heart rate. Patient was cardioverted by Dr. Robison with 360 J. He is now in a normal sinus rhythm with a rate of approximately 80 and his blood pressure has normalized. Results - Labs CBC & BMP: 11/29/16 09:05 11/29/16 09:05 Lab Results: I have reviewed the patients labs Labs: Laboratory Tests 11/29/16 11/29/16 11/29/16 09:05 09:05 09:05 WBC 4.9 RBC 4.60 Hgb 14.1 Hct 41.6 L MCV 90.4 Plt Count 171 Sodium 136 Potassium 4.4 Chloride 98 Carbon Dioxide 28 Anion Gap 14.4 BUN 45 H Creatinine 13.30 H BUN/Creatinine Ratio 3.00 L Troponin I 0.025 Albumin 3.2 L Globulin 4.0 H Albumin/Globulin Ratio 0.8 L - EKG EKG results: interpreted by ERMD (Sinus tachycardia, lateral ischemia) - Diagnostic Findings Procedure: Chest x-ray: report reviewed by me (1. Cardiomegaly and chronic vascular congestion. 2. Chronic eventration or elevation a left diaphragm with minimal scarring in the left lung base.) Disposition Clinical Impression: Chest pain, Hypotension, Sinus tachycardia, ESRD (end stage renal disease), Atrial tachycardia Case discussed with: patient, patient's family Disposition: Still a Patient Condition: Guarded Additional Instructions: Admit to Dr. Robison
--- NOTE | 2016-11-29 10:52 | XRay Report ---
History is chest pain Comparison 10/18/2016 The heart is enlarged. There is central vascular congestion and hilar prominence likely related to vasculature similar on the prior study There is chronic elevation left diaphragm. No consolidated infiltrate or pneumothorax seen Impression: 1. Cardiomegaly and chronic vascular congestion 2. Chronic eventration or elevation a left diaphragm with minimal scarring in the left lung base PROCEDURE INTERPRETED AT [facility] DEPARTMENT OF RADIOLOGY Final Report Signed by: Dr. Denia Brown
[2016-11-29] MEDS ORDERED: ADENOSINE 6 MG/2 ML VIAL ONE (10:56)
[2016-11-29] MEDS ORDERED: MIDAZOLAM 2 MG/2 ML VIAL IV STA ×2 (11:00→11:05)
[2016-11-29] MEDS ORDERED: ADENOSINE 6 MG/2 ML VIAL IV STA ×2 (11:00)
[2016-11-29] MEDS ORDERED: MIDAZOLAM 2 MG/2 ML VIAL ONE ×2 (11:02→11:06)
[2016-11-29] MEDS ORDERED: MORPHINE 2 MG/1 ML SYRINGE ONE (11:02)
[2016-11-29] MEDS ORDERED: SODIUM CHLORIDE 0.9% 1,000 ML IV STA (11:08)
--- NOTE | 2016-11-29 11:12 | EKG Report ---
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
--- NOTE | 2016-11-29 11:18 | Operative Note ---
Procedure: Procedure performed: DC cardioversion 2 Sedation: Versed Indication: Narrow complex tachycardia with unstable blood pressure. Hospital lab Description: After sedation with Versed 3 mg given, cardioversion was performed at 200 J with no change in rhythm. Follow-up EKG still seem to show atrial tachycardia and so I performed another cardioversion at 360 J with conversion to normal sinus rhythm with rate under 100 bpm. Previously received adenosine 6 mg and then 12 g with no effect. Of note was in a IV in his forearm. Anesthesia: other Surgeon / Physician: Chris Robison Estimated blood loss: none Specimens: none sent Condition: stable Disposition: floor Results - Labs CBC & BMP: 11/29/16 09:05 11/29/16 09:05 Discharge Plan - Discharge Medications No Action Simvastatin [Zocor] 40 mg PO BEDTIME Aspirin [Ecotrin] 81 mg PO BEDTIME Calcium Carbonate Chew [Tums] 3 tablet PO QID W/MEALS & HS cloNIDine TAB [Catapres Tab] 0.1 mg PO BEDTIME - Follow Up or Referral - Forms/Instructions
--- NOTE | 2016-11-29 11:20 | EKG Report ---
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
[2016-11-29] MEDS ORDERED: ZALEPLON 5 MG CAPSULE PO PRN (11:37)
[2016-11-29] MEDS ORDERED: ACETAMINOPHEN 325 MG TABLET PO PRN (11:37)
[2016-11-29] MEDS ORDERED: DOCUSATE SODIUM 100 MG CAPSULE PO PRN (11:37)
[2016-11-29] MEDS ORDERED: ONDANSETRON 4 MG/2 ML VIAL IV PRN (11:37)
[2016-11-29] MEDS ORDERED: MAGNESIUM SULF RIDER 4 GM in PREMIX 1 EACH IV PRN (11:38)
[2016-11-29] MEDS ORDERED: MAGNESIUM SULF RIDER 2 GM in PREMIX 1 EACH IV PRN (11:38)
[2016-11-29 12:56] LABS: Troponin I Only 0.215 NG/ML (0.00-0.045)
[2016-11-29] MEDS ORDERED: AMIODARONE INJ 150 MG in DEXTROSE 5% 100 ML IV ONE (13:22)
[2016-11-29] MEDS ORDERED: AMIODARONE 450 MG/9 ML VIAL IV ONE (13:25)
[2016-11-29] MEDS ORDERED: AMIODARONE 150 MG/3 ML VIAL ONE (13:25)
[2016-11-29] MEDS ORDERED: AMIODARONE INJ 450 MG in DEXTROSE 5% 241 ML IV SCH (13:30)
[2016-11-29] MEDS ORDERED: ENOXAPARIN 30 MG/0.3 ML SYRINGE SUBCUT SCH (13:30)
--- NOTE | 2016-11-29 13:47 | EKG Report ---
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
--- NOTE | 2016-11-29 14:34 | EKG Report ---
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
--- NOTE | 2016-11-29 15:28 | Cardiology History & Physical ---
Assessment and Plan - Time spent with patient Time spent with patient: Greater than 30 minutes (1) ESRD (end stage renal disease) Status: Chronic Assessment and plan: SEE PLAN OF CARE LISTED BELOW Current Visit: Yes (2) Hypertension Status: Chronic Assessment and plan: SEE PLAN OF CARE LISTED BELOW Current Visit: No (3) Narrow complex tachycardia Status: Acute Assessment and plan: SEE PLAN OF CARE LISTED BELOW Current Visit: No (4) History of hypertension Status: Chronic Assessment and plan: SEE PLAN OF CARE LISTED BELOW Current Visit: No (5) Coronary artery disease Status: Chronic Assessment and plan: SEE PLAN OF CARE LISTED BELOW Current Visit: No Qualifiers: Coronary Disease-Associated Artery/Lesion type: [place] artery [place] vs. 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 Mr. Wolfe, 66BM, routinely followed by Dr. Almonte. He was last seen in cardiology clinic March 04, 2016. Risk factors include: known coronary artery disease (S/P PCI Diagonal 2000), hypertension, dyslipidemia, obesity. History of end stage renal disease requiring hemodialysis. History of atrial flutter who takes aspirin for stroke prevention given the history of severe anemia. March 18, 2016 cardiolite stress test revealed low risk results. Last cardiac catheterization April 2005 (see report below). Patient presented to the [facility] ED November 29, 2016 experiencing left-sided chest pain, dizziness prior to beginning hemodialysis. Patient describes chest discomfort as heaviness in the left chest area, radiates to left shoulder lasting approximately 10 minutes. Can identify no aggravating nor any alleviating factors. Not associated with diaphoresis or nausea. He did have associated dizziness when he sat up. Rates the discomfort as a 7 on a scale of 1-10. Currently chest pain-free. Found to be in a narrow complex tachycardia with hypotension. Dr. Robison is at the bedside examining patient and is considering DCCV. First set of CIE negative (though he has chronically elevated troponins). Patient was hospitalized in October 2016 with an arrhythmia. The arrythmia was initially noted on admission when he was admitted with syncope. The right responded to a calcium channel roxy but the actual arrhythmia never recurred during hospital stay therefore an actual diagnosis of atrial flutter or atrial fibrillation was never made. CHADVASC SCORE 4. ASSESSMENT/PLAN: 1. CHEST PAIN - likely related to SVT. Will continue to cycle his cardiac biomarkers. See the last heart catheterization report (below). 2. SVT - plan for DCCV. 2. ARRYTHMIA SUSPECTED TO BE ATRIAL FLUTTER - we will continue to monitor closely. Will need formal anticoagulation if true atrial flutter or A. fib 3. KNOWN CAD S/P PCI DIAGONAL 2000 - denies chest pain at this time. Will continue to monitor CIE. 5. HYPOTENION - suspect will resolve with DCCV. 6. DYSLIPIDEMIA - LDL 83. Continue lipid lowering agent. 7. ESRD - HD . He is on the renal transplant list and follows up with [facility]. Consult Nephrology. Did not udnergo HD today. 8. UNDERLYING HYPERTENSION - history of. Will adjust medications accordingly during hospitalization. April 20, 2005 [facility] revealed the followin. Significant disease in the mid to distal diagonal branch, and an RV marginal. Mild disease in other vessels. 2. No significant disease in the major vessels. 3. Moderate global left ventricular systolic dysfunction with global hypokinesis number next mild elevation LVEDP. 4. Patent prior stented site of the proximal diagonal. Home Medications Medication Instructions Recorded Confirmed Type Aspirin [Ecotrin] 81 mg PO BEDTIME 01/18/15 11/29/16 History Simvastatin [Zocor] 40 mg PO BEDTIME 01/18/15 11/29/16 History Calcium Carbonate Chew [Tums] 3 tablet PO QID W/MEALS & HS 05/04/16 11/29/16 History cloNIDine TAB [Catapres Tab] 0.1 mg PO BEDTIME 11/29/16 11/29/16 History Allergies Allergy/AdvReac Type Severity Reaction Status Date / Time No Known Allergies Allergy Verified 11/29/16 09:06 Review of systems: REVIEW OF SYSTEMS: - Constitutional Constitutional: Present: Fatigue. Absent: syncope, anorexia, night sweats - EENT Eyes: Absent: blurry vision, loss of vision, diplopia Ears: Absent: decreased hearing, ear pain, ear discharge - Cardiovascular Cardiovascular: Denies chest pain with exertion, dyspnea on exertion. Acknowledges chest pain prior to starting HD today, edema, palpitations. Absent : chest pain with deep breath, claudication - Respiratory Respiratory: Present: LUJAN, denies cough. Absent: wheezing, hemoptysis, change in phlegm color - Gastrointestinal Gastrointestinal: Denies: constipation. Absent: abdominal pain, hematemesis, hematochezia, melena, change in bowel habits, nausea - Genitourinary Genitourinary: Absent: difficulty urinating, dysuria, urinary hesitancy, flank pain - Musculoskeletal Musculoskeletal: Present: back pain Absent: joint swelling, muscle cramps, muscle weakness - Neurological Neurological: Present: normal gait without frequent falls. Absent: dizziness, hemiparesis - Psychiatric Psychiatric: Absent: anxiety, depression, difficulty concentrating - Endocrine Endocrine: Present: fatigue. Absent: cold intolerance, heat intolerance, polyuria, polyphagia, polydipsia - Hematologic/Lymphatic Hematologic/Lymphatic: Present: easy bruising. Absent: easy bleeding -Integumentary Integumentary: Absent: lesions, rashes, skin breakdown Medical,Surgical,& Family Hx - Medical History Cardio: History of: CAD, Hypertension, [place] No history of: Cardiac Dysrhythmia HEENT: History of: Eye Problem (GLASSES) Endocrine: History of: Dyslipidemia Respiratory: History of: Obstructive Sleep Apnea (SLEEPS WITH CPAP), Pneumonia Renal: History of: Dialysis (M, W, F), Renal Failure Gastrointestinal: History of: GERD Musculoskeletal: No history of: Back/Neck Problems Other: No history of: Anesthesia Reactions, Cancer - Surgical History Cardiac Surgeries: Sugical HX of: Cardiac Catheterization (STENT) Thoracic Surgeries: Patient denies;: Lobectomy HEENT Surgeries: Surgical HX of: Tonsilectomy & Adenoidectomy Patient denies: Eye Surgery Abdominal Surgeries: Surgical HX of: Abdominal Surgery, Colonoscopy, EGD, Hernia Repair Patient denies: Appendectomy, Cholecystectomy Orthopedic Surgeries: Surgical HX of;: Orthopedic Surgery (right hip replacement (total)), Total Hip Replacement (RIGHT) - Family History Family History: Reports;: Family Cancer (brother brain), Family Diabetes (mother ), Family Hypertension (mother father), Family Stroke - Social History Smoking Status: Never smoker Have you smoked in the last 12 months: No Frequency of Alcohol Use: None Type of Drug Use: None Cardiology Physical Exam - Constitutional Vitals: Vital Signs Temp Pulse Resp BP Pulse Ox 96.9 F L 130 H 18 82/63 96 11/29/16 14:00 11/29/16 14:00 11/29/16 14:00 11/29/16 14:00 11/29/16 14:00 Intake and Output 11/28/16 11/29/16 11/29/16 23:59 07:59 15:59 Intake Total 603 / 603 Balance 603 / 603 Intake: IV 603 / 603 Cordarone Inj 150 mg In 103 / 103 D5 100 ml @ 618 mls/hr IV ONCE ONE Rx#:[id number] Ns 500 ml @ 999 mls/hr IV 500 / 500 1X ED BOLUS STA Rx#: [id number] Other: Voiding Method Dialysis Patient Weight 124.738 kg Patient Weight 11/29/16 23:59 Weight 124.738 kg Exam: General: [Appears well with no apparent distress.] [Pleasant and cooperative. ] [Appears comfortable.] HEENT: [PERRL, normocephalic, atraumatic. Mucous membranes moist. No jaundice noted. Conjunctiva moist and clear, sclerae anicteric] Neck: No JVD/HJR, no thyromegaly or lymphadenopathy noted. No carotid bruit appreciated Cardiac: [Regular rate and rhythm.] [No obvious murmur rub or gallop.] Lungs: [Clear to auscultation without accessory muscle use to assist the respiratory pattern.] Oxygen in use via nasal cannula Abdomen: Soft, bowel sounds normoactive. Nontender and nondistended. No abdominal bruit or thrill noted. No masses noted. Musculoskeletal: No fluid collection. Decreased range of motion is noted. Extremities: No clubbing, cyanosis noted. [ No edema noted.] Upper extremity pulses 2+. Lower extremity pulses 2+. Capillary refill less than 3 seconds. Skin: No unusual lesions or rashes. No skin breakdown appreciated. Neuro: Awake, alert and oriented 3. Moves all extremities well without hemiparesis or paralysis. No essential tremor is appreciated. Result/EKG - Labs CBC & BMP: 11/29/16 09:05 11/29/16 09:05 Lab Results: I have reviewed the past 24 hour labs Labs: Laboratory Results - last 24 hr 11/29/16 11/29/16 11/29/16 09:05 09:05 09:05 WBC 4.9 RBC 4.60 Hgb 14.1 Hct 41.6 L MCV 90.4 MCH 31 MCHC 33.9 RDW 14.2 Plt Count 171 MPV 9.7 Neut % (Auto) 42.3 Lymph % (Auto) 44.3 [place] % (Auto) 8.3 Eos % (Auto) 4.1 Baso % (Auto) 0.8 Neut # (Auto) 2.1 Lymph # (Auto) 2.2 [place] # (Auto) 0.4 Eos # (Auto) 0.2 Baso # (Auto) 0.0 Immature Gran % 0.2 Nucleated RBC % 0.0 Immature Gran # 0.01 Nucleated RBCs # 0.00 Sodium 136 Potassium 4.4 Chloride 98 Carbon Dioxide 28 Anion Gap 14.4 BUN 45 H Creatinine 13.30 H GFR Calculation 6 BUN/Creatinine Ratio 3.00 L Glucose 98 Calculated Osmolality 283.0 Calcium 9.3 Total Bilirubin 0.40 AST 24 ALT 26 Alkaline Phosphatase 87 Total Creatine Kinase CK-MB (CK-2) Troponin I 0.025 Total Protein 7.2 Albumin 3.2 L Globulin 4.0 H Albumin/Globulin Ratio 0.8 L 11/29/16 12:12 WBC RBC Hgb Hct MCV MCH MCHC RDW Plt Count MPV Neut % (Auto) Lymph % (Auto) [place] % (Auto) Eos % (Auto) Baso % (Auto) Neut # (Auto) Lymph # (Auto) [place] # (Auto) Eos # (Auto) Baso # (Auto) Immature Gran % Nucleated RBC % Immature Gran # Nucleated RBCs # Sodium Potassium Chloride Carbon Dioxide Anion Gap BUN Creatinine GFR Calculation BUN/Creatinine Ratio Glucose Calculated Osmolality Calcium Total Bilirubin AST ALT Alkaline Phosphatase Total Creatine Kinase 206 CK-MB (CK-2) 2.5 Troponin I 0.215 H D Total Protein Albumin Globulin Albumin/Globulin Ratio - Diagnostic Findings Procedure: Chest x-ray: report reviewed by me - EKG EKG results: interpreted by me EKG shows: tachycardia (NSVT versus atrial flutter with RVR) Quality Measures - Stroke Symptom Onset Unknown: No
[2016-11-29 15:31] LABS: Basophils % 0.9 % (0.0-0.8); Eosinophils # 0.1 10*3/uL (0.0-0.87); Eosinophils % 2.9 % (0.00-10.9); Hematocrit 41.6 VOL% (42.0-52.0); Immature Granulocytes % 0.3 %; Immature Granulocytes Absolute 0.01 #; Lymphocytes # 1.3 10*3/uL (1.4-4.0); Lymphocytes % 36.4 % (21.2-54.2); Mean Corpuscular HGB Conc 33.7 GM/DL (32-36); Mean Corpuscular Hemoglobin 31 PG (27-34); Mean Platelet Volume 9.8 FL (9.6-12.0); Monocytes # 0.3 10*3/uL (0.11-0.8); Monocytes % 8.2 % (1.7-12.7); Neutrophils # 1.8 10*3/uL (1.4-7.4); Neutrophils % 51.3 % (38.7-73.9); Platelet Count 123 T/CUMM (130-400); Red Blood Count 4.52 MC/CUMM (3.8-5.5); Red Cell Distribution Width 14.3 % (9.3-17.3); White Blood Count 3.4 T/CUMM (4-12)
--- NOTE | 2016-11-29 16:09 | Nephrology Consult Note ---
History of Present Illness Chief complaint: admitted for tachycardia/SOB, referred for ESRD on dialysis History of present illness: Mr. Wolfe is a 66 year old male with ESRD on chronic hemodialysis MWF at [facility] via right arm fistula. EDW 117kg. Had onset chest pressure/SOB on the way to dialysis. Sent to ER for c/o. Found to be hypotensive with narrow complex tachycardia similar to last month. Got d/c cardioversion and started on amiodarone gtt loading. Pt s c/o on interview, but monitor reveals narrow complex tachycardia in 130s. Pt denies symptoms. No edema, lungs clear, renal panel without indications for dialysis. Home Medications Medication Instructions Recorded Confirmed Type Aspirin [Ecotrin] 81 mg PO BEDTIME 01/18/15 11/29/16 History Simvastatin [Zocor] 40 mg PO BEDTIME 01/18/15 11/29/16 History Calcium Carbonate Chew [Tums] 3 tablet PO QID W/MEALS & HS 05/04/16 11/29/16 History cloNIDine TAB [Catapres Tab] 0.1 mg PO BEDTIME 11/29/16 11/29/16 History Allergies Allergy/AdvReac Type Severity Reaction Status Date / Time No Known Allergies Allergy Verified 11/29/16 09:06 Medical,Surgical,& Family Hx - Medical History Cardio: History of: CAD, Hypertension, [place] No history of: Cardiac Dysrhythmia HEENT: History of: Eye Problem (GLASSES) Endocrine: History of: Dyslipidemia Respiratory: History of: Obstructive Sleep Apnea (SLEEPS WITH CPAP), Pneumonia Renal: History of: Dialysis (M, W, F), Renal Failure Gastrointestinal: History of: GERD Musculoskeletal: No history of: Back/Neck Problems Other: No history of: Anesthesia Reactions, Cancer - Surgical History Cardiac Surgeries: Sugical HX of: Cardiac Catheterization (STENT) Thoracic Surgeries: Patient denies;: Lobectomy HEENT Surgeries: Surgical HX of: Tonsilectomy & Adenoidectomy Patient denies: Eye Surgery Abdominal Surgeries: Surgical HX of: Abdominal Surgery, Colonoscopy, EGD, Hernia Repair Patient denies: Appendectomy, Cholecystectomy Orthopedic Surgeries: Surgical HX of;: Orthopedic Surgery (right hip replacement (total)), Total Hip Replacement (RIGHT) - Family History Family History: Reports;: Family Cancer (brother brain), Family Diabetes (mother ), Family Hypertension (mother father), Family Stroke - Social History Smoking Status: Never smoker Frequency of Alcohol Use: None Type of Drug Use: None Exam - Vital Signs Vital signs: Period Temp Pulse Resp BP Sys/Arias Pulse Ox Last 24 Hr 96.9 F-97.6 F 130-156 18-20 82-89/60-63 96-96 - General Appearance General appearance: well-developed, well-nourished EENT: ATNC, PERRL, mucous membranes moist, hearing intact, vision intact Neck: no JVD, no thyromegaly Respiratory: no kyphosis, clear Cardiology: no murmurs, no rub, no edema Gastrointestinal: normoactive bowel sounds, no tenderness Integumentary: no rash, warm and dry Neurologic: no focal deficit, no asterixis, alert and oriented x3 Musculoskeletal: no deformities, no erythema Psychiatric: mood/affect appropriate, cooperative Results - Labs CBC & BMP: 11/29/16 15:24 11/29/16 09:05 Assessment and Plan (1) Narrow complex tachycardia Problem details: per cardiology service. Status: Acute Current Visit: No (2) ESRD (end stage renal disease) on dialysis Problem details: No acute indication for HD at this time. Status: Acute Assessment and plan: Plan 4.5hrs routine CHD tomorrow UF as tolerated by hemodynamics. Current Visit: Yes
[2016-11-29] MEDS ORDERED: METOPROLOL TARTRATE 5 MG/5 ML VIAL IV ONE ×3 (17:00→17:07)
[2016-11-29] MEDS ORDERED: METOPROLOL TARTRATE 5 MG/5 ML VIAL IV PRN (17:12)
[2016-11-29] MEDS: CALCIUM CARBONATE CHEW 500 MG TABLET PO SCH ×3 (17:45→21:22)
[2016-11-29] MEDS: AMIODARONE INJ 450 MG in DEXTROSE 5% 241 ML IV SCH (19:30)
[2016-11-29] MEDS ORDERED: SIMVASTATIN 40 MG TABLET PO SCH (21:00)
[2016-11-29] MEDS: ASPIRIN EC 81 MG TABLET PO SCH (21:22)
[2016-11-29] MEDS: cloNIDine 0.1 MG TABLET PO SCH (21:23)
[2016-11-30] MEDS: AMIODARONE INJ 450 MG in DEXTROSE 5% 241 ML IV SCH ×2 (00:51→11:18)
[2016-11-30 04:10] LABS: Basophils % 0.7 % (0.0-0.8); Eosinophils # 0.2 10*3/uL (0.0-0.87); Eosinophils % 4.5 % (0.00-10.9); Hematocrit 37.6 VOL% (42.0-52.0); Hemoglobin 12.3 GM/DL (14.0-18.0); Immature Granulocytes % 0.2 %; Immature Granulocytes Absolute 0.01 #; Lymphocytes # 1.7 10*3/uL (1.4-4.0); Lymphocytes % 40.8 % (21.2-54.2); Mean Corpuscular HGB Conc 32.7 GM/DL (32-36); Mean Corpuscular Hemoglobin 30 PG (27-34); Mean Corpuscular Volume 92.8 FL (87-102); Monocytes # 0.5 10*3/uL (0.11-0.8); Monocytes % 10.6 % (1.7-12.7); Neutrophils # 1.8 10*3/uL (1.4-7.4); Neutrophils % 43.2 % (38.7-73.9); Platelet Count 135 T/CUMM (130-400); Red Blood Count 4.05 MC/CUMM (3.8-5.5); Red Cell Distribution Width 14.4 % (9.3-17.3); White Blood Count 4.2 T/CUMM (4-12)
[2016-11-30 04:30] LABS: Alanine Aminotransferase 23 U/L (16-61); Albumin 2.9 G/DL (3.4-5.0); Alkaline Phosphatase 75 U/L (45-117); Aspartate Amino Transferase 27 U/L (0-37); Bilirubin,Total < 0.39 MG/DL (0.2-1.0); Blood Urea Nitrogen 59 MG/DL (7-18); Calcium 8.9 MG/DL (8.5-10.1); Cholesterol 150 MG/DL (50-200); Glucose 75 MG/DL (74-106); HDL Cholesterol 34 MG/DL (40-60); Potassium 5.3 MMOL/L (3.5-5.1); Risk Ratio 4.41; Sodium 136 MMOL/L (136-145); Total Protein 6.1 G/DL (6.4-8.3); Triglycerides 138 MG/DL (2-150); VLDL CHOLESTEROL 27.6 MG/DL
[2016-11-30 04:38] LABS: Free T4 (Free Thyroxine) 1.05 NG/DL (0.76-1.46); Thyroid Stimulating Hormone 0.716 uIU/ml (0.358-3.74)
--- NOTE | 2016-11-30 05:04 | EKG Report ---
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
--- NOTE | 2016-11-30 09:05 | Dialysis Note ---
Dialysis Note - Dialysis Note S: Pt seen on dialysis. No c/o. Concerned about making his renal transplant appt in [place] on . O: VSS, pulse 64, BP 160/80 A: ESRD on CHD tolerating well s complications at this time. P: Next routine CHD scheduled for .
--- NOTE | 2016-11-30 09:36 | Cardiology Progress Note ---
Assessment and Plan (1) Coronary artery disease Status: Chronic Assessment and plan: 1. 66-year-old BM with ESRD, status post diagonal stenting in 2000, recurrent narrow complex tachycardia causing hypotension status post DC cardioversion. He had a similar event October 2016 but had recurrence on dihydropyridine calcium channel roxy, so would change to amiodarone. Will start p.o. amiodarone today and discontinue IV 1 bag is empty. 2. Given troponin elevation with associated recurrent chest pain and known CAD in the past would recommend heart catheterization to define his coronary anatomy. Left ventriculography would be helpful, we could use echocardiogram to assess his LV function. 3. Of note ejection fraction is 45-50% October 18, 2016 during his previous hospitalization. 4. Would plan for transfer from the ICU after hemodialysis is completed. I discussed with Mr. Herrera the risks and benefits of heart catheterization and intervention including but not limited to: stroke heart attack vascular damage reaction measured blue card blood transfusion possible need for surgery. I have answered his questions about the procedure and I discussed with Dr. Enriquez to try to schedule this later today if possible. Current Visit: No Qualifiers: Coronary Disease-Associated Artery/Lesion type: rincon artery [place] vs. transplanted heart: rincon heart (2) Chest pain Status: Acute Current Visit: Yes (3) Hypotension Status: Acute Current Visit: Yes (4) Atrial tachycardia Status: Acute Current Visit: Yes Cardiology - PN: Subj Interval history: Mr. Wolfe is feeling "great" today with no more fatigue hypotension or chest pain. He is currently getting hemodialysis. He has not eaten yet today. We discussed the possible benefits and the risks of heart catheterization given his recurrent chest pain episodes and current non-STEMI which may be related to significant coronary artery disease versus demand necrosis from prolonged tachycardia. Exam (Progress Note) - Constitutional Vitals: Period Temp Pulse Resp BP Sys/Arias Pulse Ox Last 24 Hr 96.9 F-98.0 F 56-132 12-22 80-156/56-94 93-98 General appearance: no acute distress, over weight - Head Head exam: Present: normal inspection, normocephalic, atraumatic - Respiratory Respiratory exam: Present: clear to auscultation bilaterally. Absent: stridor, wheezes - Cardiovascular Cardiovascular exam: Present: regular rate and rhythm. Absent: diastolic murmur , rubs - GI/Abdominal GI/Abdominal exam: Present: soft. Absent: tenderness - Extremities Exam Extremities exam: Present: edema (Trace edema) Result/EKG - Labs CBC & BMP: 11/30/16 03:07 11/30/16 03:07 Labs: Laboratory Results - last 24 hr 11/29/16 11/29/16 11/29/16 09:05 09:05 09:05 WBC 4.9 RBC 4.60 Hgb 14.1 Hct 41.6 L MCV 90.4 MCH 31 MCHC 33.9 RDW 14.2 Plt Count 171 MPV 9.7 Neut % (Auto) 42.3 Lymph % (Auto) 44.3 Banks % (Auto) 8.3 Eos % (Auto) 4.1 Baso % (Auto) 0.8 Neut # (Auto) 2.1 Lymph # (Auto) 2.2 Banks # (Auto) 0.4 Eos # (Auto) 0.2 Baso # (Auto) 0.0 Immature Gran % 0.2 Nucleated RBC % 0.0 Immature Gran # 0.01 Nucleated RBCs # 0.00 Sodium 136 Potassium 4.4 Chloride 98 Carbon Dioxide 28 Anion Gap 14.4 BUN 45 H Creatinine 13.30 H GFR Calculation 6 BUN/Creatinine Ratio 3.00 L Glucose 98 Calculated Osmolality 283.0 Calcium 9.3 Magnesium Total Bilirubin 0.40 AST 24 ALT 26 Alkaline Phosphatase 87 Total Creatine Kinase CK-MB (CK-2) Troponin I 0.025 Total Protein 7.2 Albumin 3.2 L Globulin 4.0 H Albumin/Globulin Ratio 0.8 L Triglycerides Cholesterol LDL Cholesterol VLDL Cholesterol HDL Cholesterol Heart Disease Risk Ratio Free T4 TSH 3rd Generation 11/29/16 11/29/16 11/29/16 12:12 15:24 15:24 WBC 3.4 L D RBC 4.52 Hgb 14.0 Hct 41.6 L MCV 92.0 MCH 31 MCHC 33.7 RDW 14.3 Plt Count 123 L D MPV 9.8 Neut % (Auto) 51.3 Lymph % (Auto) 36.4 Banks % (Auto) 8.2 Eos % (Auto) 2.9 Baso % (Auto) 0.9 H Neut # (Auto) 1.8 Lymph # (Auto) 1.3 L [place] # (Auto) 0.3 Eos # (Auto) 0.1 Baso # (Auto) 0.0 Immature Gran % 0.3 Nucleated RBC % 0.0 Immature Gran # 0.01 Nucleated RBCs # 0.00 Sodium Potassium Chloride Carbon Dioxide Anion Gap BUN Creatinine GFR Calculation BUN/Creatinine Ratio Glucose Calculated Osmolality Calcium Magnesium Total Bilirubin AST ALT Alkaline Phosphatase Total Creatine Kinase 206 CK-MB (CK-2) 2.5 Troponin I 0.215 H D 0.901 H D Total Protein Albumin Globulin Albumin/Globulin Ratio Triglycerides Cholesterol LDL Cholesterol VLDL Cholesterol HDL Cholesterol Heart Disease Risk Ratio Free T4 TSH 3rd Generation 11/29/16 11/30/16 11/30/16 19:47 03:07 03:07 WBC 4.2 RBC 4.05 Hgb 12.3 L Hct 37.6 L MCV 92.8 MCH 30 MCHC 32.7 RDW 14.4 Plt Count 135 MPV 10.0 Neut % (Auto) 43.2 Lymph % (Auto) 40.8 Banks % (Auto) 10.6 Eos % (Auto) 4.5 Baso % (Auto) 0.7 Neut # (Auto) 1.8 Lymph # (Auto) 1.7 Banks # (Auto) 0.5 Eos # (Auto) 0.2 Baso # (Auto) 0.0 Immature Gran % 0.2 Nucleated RBC % 0.0 Immature Gran # 0.01 Nucleated RBCs # 0.00 Sodium Potassium Chloride Carbon Dioxide Anion Gap BUN Creatinine GFR Calculation BUN/Creatinine Ratio Glucose Calculated Osmolality Calcium Magnesium Total Bilirubin AST ALT Alkaline Phosphatase Total Creatine Kinase 240 CK-MB (CK-2) 4.2 H Troponin I 1.590 H D Total Protein Albumin Globulin Albumin/Globulin Ratio Triglycerides Cholesterol LDL Cholesterol VLDL Cholesterol HDL Cholesterol Heart Disease Risk Ratio Free T4 1.05 TSH 3rd Generation 0.716 11/30/16 11/30/16 03:07 03:07 WBC RBC Hgb Hct MCV MCH MCHC RDW Plt Count MPV Neut % (Auto) Lymph % (Auto) Banks % (Auto) Eos % (Auto) Baso % (Auto) Neut # (Auto) Lymph # (Auto) Banks # (Auto) Eos # (Auto) Baso # (Auto) Immature Gran % Nucleated RBC % Immature Gran # Nucleated RBCs # Sodium 136 Potassium 5.3 H Chloride 100 Carbon Dioxide 28 Anion Gap 13.3 BUN 59 H D Creatinine 15.20 H GFR Calculation 5 BUN/Creatinine Ratio 3.00 L Glucose 75 Calculated Osmolality 287.0 Calcium 8.9 Magnesium 2.8 H Total Bilirubin < 0.39 AST 27 ALT 23 Alkaline Phosphatase 75 Total Creatine Kinase CK-MB (CK-2) Troponin I Total Protein 6.1 L Albumin 2.9 L Globulin 3.2 Albumin/Globulin Ratio 0.9 L Triglycerides 138 Cholesterol 150 LDL Cholesterol 89.0 VLDL Cholesterol 27.6 HDL Cholesterol 34 L Heart Disease Risk Ratio 4.41 Free T4 TSH 3rd Generation Quality Measures - Stroke Symptom Onset Unknown: No
[2016-11-30] MEDS: CALCIUM CARBONATE CHEW 500 MG TABLET PO SCH ×4 (10:06→20:22)
[2016-11-30] MEDS: ROSUVASTATIN 20 MG TABLET PO SCH (10:08)
[2016-11-30] MEDS: PANTOPRAZOLE 40 MG TABLET PO SCH (10:08)
[2016-11-30] MEDS: AMIODARONE 200 MG TABLET PO SCH ×3 (10:09→20:23)
[2016-11-30] MEDS ORDERED: DIAZEPAM 5 MG TABLET PO ONE (11:15)
[2016-11-30] MEDS ORDERED: diphenhydrAMINE CAP 50 MG CAPSULE PO ONE (11:16)
[2016-11-30] MEDS ORDERED: LIDOCAINE 1% 20 ML VIAL ONE (13:41)
[2016-11-30] MEDS ORDERED: HEPARIN/NACL 0.9% 2 UNITS/ML 1,000 ML IV ONE (13:41)
[2016-11-30] MEDS ORDERED: HYDROmorphone 2 MG/1 ML VIAL ONE (14:14)
[2016-11-30] MEDS ORDERED: MIDAZOLAM 2 MG/2 ML VIAL ONE (14:14)
[2016-11-30] MEDS ORDERED: BIVALIRUDIN 250 MG VIAL IV ONE (14:29)
[2016-11-30] MEDS ORDERED: TICAGRELOR 90 MG TABLET ONE (14:34)
[2016-11-30] MEDS ORDERED: BIVALIRUDIN 250 MG in SODIUM CHLORIDE 0.9% 50 ML IV SCH (15:00)
--- NOTE | 2016-11-30 15:09 | Cardiac Catheterization ---
Date of Procedure:: 11/30/16 Procedure: CLINICAL SUMMARY: The patient has known coronary artery disease with previous stenting and had transient arrhythmia with associated elevation cardiac enzymes and EKG changes suggestive of ischemia. He is undergoing cardiac catheterization for definitive coronary artery assessment possible revascularization. PROCEDURES PERFORMED: 1. Right femoral percutaneous arteriotomy 2. Left heart catheterization. 3. Resting hemodynamics. 4. Left ventriculography. 5. Coronary arteriography. 6. Right femoral arteriogram. 7. Angio-Seal closure of the right femoral artery. 8. Successful percutaneous coronary intervention to the distal right coronary artery with a 2.5 x 8 mm Xience alpine drug-eluting stent. 9. Successful percutaneous coronary intervention to the second obtuse marginal branch with a 2.75 x 12 mm Xience alpine drug-eluting stent. DESCRIPTION OF PROCEDURE: After obtaining informed consent, the patient was brought to the cardiac catheterization lab where the right groin was prepped and draped in the usual sterile manner. Using IV sedation, local anesthesia, and Modified Seldinger technique, a needle was placed in the right femoral artery and a sheath was positioned without difficulty. A left coronary catheter was advanced over a guidewire under fluoroscopic control to the ascending aorta where angiograms of the left coronary artery were undertaken in multiple views. After adequate angiograms, this catheter was withdrawn and a right coronary catheter was advanced over a guidewire under fluoroscopic control to the ascending aorta with angiograms of the RCA were undertaken in numerous projections. After adequate angiograms, this catheter was removed and a pigtail ventriculographic catheter was advanced over a guidewire under fluoroscopic control to the aortic valve and left ventricular pressures were measured. After adequate pressures were measured, this catheter was used to perform left ventriculography in the [place] projection. This catheter was then withdrawn under hemodynamic monitoring and removed from the patient. We then performed percutaneous coronary intervention on the right coronary artery. We used a JR4 interventional guide to engage this vessel and passed PT Graphix wire beyond the area of stenosis in the distal right coronary artery. We will perform primary stenting with a 2.5 mm Xience alpine drug-eluting stent. An excellent angiographic result was achieved with no significant residual stenosis. We then turned our attention to the high-grade disease in the second obtuse marginal branch. We engaged the left main coronary artery with an AL-1 interventional guide and passed PT Graphix wire beyond the area of stenosis in the second obtuse marginal branch. We perform primary stenting with a 2.75 x 12 mm Xience alpine drug-eluting stent. An excellent angiographic result was achieved with no significant residual stenosis. A right femoral arteriogram was performed showing adequate sheath placement for closure device deployment. The sheath was then removed and an Angio-Seal device was used to obtain hemostasis. The patient was transferred back to the room having suffered no immediate complications. HEMODYNAMICS: See the accompanying data sheet. LVEDP was 27 mmHg. CORONARY ARTERIOGRAPHY: LEFT MAIN: The left main coronary artery is a large caliber vessel, which bifurcates into the left anterior descending and left circumflex coronary arteries. The left main coronary artery has no significant obstructive disease. LEFT CIRCUMFLEX: The left circumflex coronary artery is a large-caliber vessel which gives off a moderate-sized first obtuse marginal branch and a moderate to large second obtuse marginal branch. There is a focal 80-90% stenosis in the mid segment of the second obtuse marginal branch. The remainder of the circumflex system has mild luminal irregularities but no significant focal obstruction. LEFT ANTERIOR DESCENDING: The left anterior descending artery is a large- caliber vessel which gives off a moderate-sized diagonal branch and wraps the apex. There is a stent in the proximal segment of the diagonal branch which is widely patent. Distal to the stent this vessel has some diffuse moderate disease. RIGHT CORONARY ARTERY: The right coronary artery is a moderate-sized vessel which gives off the posterior descending artery and a posterolateral system. There is diffuse moderate disease of up to 40% in the proximal and mid vessel. There is a focal 95% stenosis in the distal vessel just proximal to the origin of the posterior descending artery. LEFT VENTRICULOGRAPHY: Left ventricular ejection fraction is estimated at 55-60 % with normal regional wall motion. PERIPHERAL ARTERIOGRAPHY: Right femoral arteriogram shows a normal right iliofemoral artery with adequate sheath placement for closure device deployment. IMPRESSIONS: 1. Successful percutaneous coronary intervention to the distal right coronary artery with a 2.50 mm Xience alpine drug-eluting stent. 2. Successful percutaneous coronary intervention to the second obtuse marginal branch of the left circumflex coronary artery with a 2.75 x 12 mm Xience alpine drug-eluting stent. 3. There is mild to moderate nonobstructive disease and other vascular distributions which would manage medically. 4. Preserved left ventricular ejection fraction as described above. 5. Elevated left ventricular end-diastolic pressure. PLAN: The patient will be transferred back to his room for postintervention monitoring and management. We will continue medical therapy and risk factor modification. If he does well overnight he can possibly be discharged tomorrow for outpatient management. Anesthesia: minimal conscious sedation Surgeon / Physician: Brooks Enriquez Estimated blood loss: none Specimens: none sent Condition: stable - Medications / Follow-up
--- NOTE | 2016-11-30 15:40 | EKG Report ---
Stationary ECG Study [facility] Test Date: 11/30/2016 3:40:25 PM Pat Name: HALI LEGGETT Department: Room: 106 Gender: M Gin Clerk: : 1950 Requested by: Sal Guy Order Number: [id number] Reading MD: HECTOR BANERJEE Intervals [place] Rate: 64 P: 55 SC: 259 QRS: 30 QRSD: 134 T: 32 QT: 522 QTc: 531 Interpretive Statements SINUS RHYTHM WITH PROLONGED SC INTERVAL POSSIBLE LEFT ATRIAL ENLARGEMENT INTRAVENTRICULAR CONDUCTION DELAY Electronically Signed On 12-03-16 15:39:10 CDT by HECTOR BANERJEE [email or web address]
[2016-11-30] MEDS: TICAGRELOR 90 MG TABLET PO SCH (20:23)
[2016-11-30] MEDS: ASPIRIN EC 81 MG TABLET PO SCH (20:23)
[2016-11-30] MEDS: cloNIDine 0.1 MG TABLET PO SCH (20:23)
[2016-12-01 04:54] LABS: Basophils % 0.5 % (0.0-0.8); Eosinophils # 0.1 10*3/uL (0.0-0.87); Eosinophils % 3.4 % (0.00-10.9); Hematocrit 39.1 VOL% (42.0-52.0); Hemoglobin 13.2 GM/DL (14.0-18.0); Lymphocytes # 0.8 10*3/uL (1.4-4.0); Lymphocytes % 20.4 % (21.2-54.2); Mean Corpuscular HGB Conc 33.8 GM/DL (32-36); Mean Corpuscular Hemoglobin 30 PG (27-34); Mean Corpuscular Volume 90.1 FL (87-102); Monocytes # 0.5 10*3/uL (0.11-0.8); Monocytes % 11.8 % (1.7-12.7); Neutrophils # 2.4 10*3/uL (1.4-7.4); Neutrophils % 63.9 % (38.7-73.9); Platelet Count 144 T/CUMM (130-400); Red Blood Count 4.34 MC/CUMM (3.8-5.5); White Blood Count 3.8 T/CUMM (4-12)
[2016-12-01 05:32] LABS: Albumin 2.8 G/DL (3.4-5.0); Bilirubin,Total 0.6 MG/DL (0.2-1.0); Calcium 8.2 MG/DL (8.5-10.1); Osmolality,Calculated 269.5 MOS/KG (273-304); Potassium 5.3 MMOL/L (3.5-5.1); Total Protein 6.1 G/DL (6.4-8.3); Troponin I Only 0.962 NG/ML (0.00-0.045)
--- NOTE | 2016-12-01 07:39 | EKG Report ---
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
--- NOTE | 2016-12-01 08:21 | Nephrology Progress Note ---
Nephrology - PN: Subj Interval history: Pt states he slept well for first time in weeks last night. Much less subjectively SOB. Denies pain. S/P cath with PCI x 2. No problems with dialysis yesterday. Exam (PN)-Nephrology - Vital Signs Vital signs: Period Temp Pulse Resp BP Sys/Arias Pulse Ox Last 24 Hr 97.8 F-98.6 F 59-72 9-25 112-172/60-108 90-100 - General Appearance General appearance: well-developed, well-nourished EENT: ATNC, PERRL Neck: no JVD, no thyromegaly Respiratory: no kyphosis, clear Cardiology: no murmurs, no rub Gastrointestinal: normoactive bowel sounds, no tenderness Integumentary: no rash, warm and dry Neurologic: no focal deficit, no asterixis, alert and oriented x3 Musculoskeletal: no deformities, no erythema Psychiatric: mood/affect appropriate, cooperative - Lab 12/01/16 03:36 12/01/16 03:36 Most recent lab results Calcium 8.2 MG/DL (8.5-10.1) L 12/01/16 03:36 Magnesium 2.8 MG/DL (1.8-2.4) H 11/30/16 03:07 Assessment and Plan (1) Narrow complex tachycardia Problem details: per cardiology service. Status: Acute Assessment and plan: s/p cath with intervention. Current Visit: No (2) ESRD (end stage renal disease) on dialysis Problem details: No acute indication for HD at this time. Status: Acute Assessment and plan: Plan 4hrs routine CHD today UF as tolerated by hemodynamics. Current Visit: Yes
[2016-12-01] MEDS: CALCIUM CARBONATE CHEW 500 MG TABLET PO SCH ×3 (08:36→17:33)
[2016-12-01] MEDS: AMIODARONE 200 MG TABLET PO SCH (08:37)
[2016-12-01] MEDS: TICAGRELOR 90 MG TABLET PO SCH (08:38)
[2016-12-01] MEDS: PANTOPRAZOLE 40 MG TABLET PO SCH (08:38)
[2016-12-01] MEDS: ROSUVASTATIN 20 MG TABLET PO SCH (08:38)
--- NOTE | 2016-12-01 09:18 | Discharge Summary ---
Hospital Course - Hospital Course Hospital Course: CORRECTIONS IDENTIFICATION TECHNICIAN: DR. ALMONTE Mr. Wolfe, 66BM, routinely followed by Dr. Almonte. He was last seen in cardiology clinic March 04, 2016. Risk factors include: known coronary artery disease (S/P PCI Diagonal 2000), hypertension, dyslipidemia, obesity. History of end stage renal disease requiring hemodialysis. History of atrial flutter who takes aspirin for stroke prevention given the history of severe anemia. March 18, 2016 cardiolite stress test revealed low risk results. Last cardiac catheterization April 2005 (see report below). Patient presented to the [facility] ED November 29, 2016 experiencing left-sided chest pain, dizziness prior to beginning hemodialysis. Patient described chest discomfort starting for angina. Patient was found to be in a narrow complex tachycardia with hypotension. Dr. Robison performed DCCV x 2. Initially, patient returned to regular sinus rhythm. However, when he arrived to the ICU he returned to atrial fib. He was started on IV Amiodarone, and subsequently oral Amiodorone, and remained in normal sinus rhythm. Transient rise in troponin noted during the hospital stay, diagnosed with NSTEMI. November 30, 2016, Dr. Enriquez performed cardiac catheterization the following impression noted: IMPRESSIONS: 1. Successful percutaneous coronary intervention to the distal right coronary artery with a 2.50 mm Xience alpine drug-eluting stent. 2. Successful percutaneous coronary intervention to the second obtuse marginal branch of the left circumflex coronary artery with a 2.75 x 12 mm Xience alpine drug-eluting stent. 3. There is mild to moderate nonobstructive disease and other vascular distributions which would manage medically. 4. Preserved left ventricular ejection fraction as described above. 5. Elevated left ventricular end-diastolic pressure. Patient tolerated procedure well without complication and was returned to the ICU in stable condition. He has remained in normal sinus rhythm on oral amiodarone. Patient is anxious for release home. Right groin soft, free of hematoma or bruit. Dr. Robison has seen and evaluated patient this morning and agrees patient is ready for discharge. Patient will be discharged home on the following medications: Aspirin 81 mg orally daily Brilinta 90 mg orally twice daily. Patient is being given a prescription card Amiodarone 200 mg orally twice daily for 1 week then decrease to 200 mg orally daily Crestor 20 mill grams orally each evening Clonidine 0.1 mg orally each evening Because patient is already on Amiodarone, not discharging on a beta-roxy. Avoiding INDU inhibitor/ARB due to fear of worsening renal insufficiency. Patient may be considered for ARB/INDU in his future and will defer to his attending shoulder boner (Dr. Gomez) to add if needed however, he is currently in normal sinus rhythm on Amiodarone. I will give patient a follow-up appoint with Dr. Gomez in 1 week. - Time spent with patient Time with patient DS: Greater than 30 minutes Diagnosis - Discharge Diagnosis (1) ESRD (end stage renal disease) Status: Chronic (2) Hypertension Status: Chronic (3) Narrow complex tachycardia Status: Resolved (4) History of hypertension Status: Chronic (5) Coronary artery disease Status: Chronic (6) SVT (supraventricular tachycardia) Status: Resolved (7) Dyslipidemia Status: Chronic (8) Chest pain Status: Resolved (9) Hypotension Status: Resolved (10) Atrial fibrillation Status: Acute (11) NSTEMI (non-ST elevated myocardial infarction) Status: Resolved Specialty Discharge - Follow Up or Referrals Follow up with: Norberto Gomez MD [Physician] - (1-2 weeks. BMP, Mg, CBC, EKG at visit) Discharge Plan - Discharge Data Disposition: Disch To Home/Self Care Condition at Discharge: Stable Discharge Diet: heart healthy Activity: other (Post cath expectations) Hygiene: other (Post cath expectations) Weight Bearing at Discharge: other (Post cath expectations) Driving: other (Post cath expectations) Contact your physician if you experience:: fever over 101, Difficulty voiding, Redness or swelling, Nausea/Vomiting, Shortness of breath, Bleeding, pain uncontrolled by pain medications - Discharge Medications New Pantoprazole Tab [Protonix Tab] 40 mg PO DAILY #30 tablet NS Ticagrelor [Brilinta] 90 mg PO BID #60 tablet Amiodarone Tab [Cordarone Tab] 200 mg PO BID #40 tablet Continue Simvastatin [Zocor] 40 mg PO BEDTIME Aspirin [Ecotrin] 81 mg PO BEDTIME Calcium Carbonate Chew [Tums] 3 tablet PO QID W/MEALS & HS cloNIDine TAB [Catapres Tab] 0.1 mg PO BEDTIME - Follow Up or Referral Follow Up: Norberto Gomez MD [Physician] - (1-2 weeks. BMP, Mg, CBC, EKG at visit) - Forms/Instructions Additional Discharge Instructions: Please give Brilinta prescription card prior to discharge. Please give copy of heart cath report to patient at discharge. Please remove right groin dressing prior to discharge today. Exam - Constitutional Vitals: Period Temp Pulse Resp BP Sys/Arias Pulse Ox Last 24 Hr 97.8 F-98.6 F 59-73 9-25 112-172/60-108 90-100 Exam: General: [Appears well with no apparent distress.] [Pleasant and cooperative. ] [Appears comfortable.] HEENT: [PERRL, normocephalic, atraumatic. Mucous membranes moist. No jaundice noted. Conjunctiva moist and clear, sclerae anicteric] Neck: No JVD/HJR, no thyromegaly or lymphadenopathy noted. No carotid bruit appreciated Cardiac: [Regular rate and rhythm.] [No obvious murmur rub or gallop.] Lungs: [Clear to auscultation without accessory muscle use to assist the respiratory pattern.] Not requiring oxygen Abdomen: Soft, bowel sounds normoactive. Nontender and nondistended. No abdominal bruit or thrill noted. No masses noted. Musculoskeletal: No fluid collection. Decreased range of motion is noted. Extremities: Right groin soft, free of hematoma or bruit. No clubbing, cyanosis noted. [ No edema noted.] Upper extremity pulses 2+. Lower extremity pulses 2+. Capillary refill less than 3 seconds. Skin: No unusual lesions or rashes. No skin breakdown appreciated. Neuro: Awake, alert and oriented 3. Moves all extremities well without hemiparesis or paralysis. No essential tremor is appreciated. Discharge Results Procedures and tests throughout hospitalization: Pending Orders 11/29/16 11:39 Urinalysis Routine 12/02/16 04:00 Comp Blood Count Auto Diff IN AM Comprehensive Metabolic Panel IN AM 12/03/16 04:00 Comp Blood Count Auto Diff IN AM Comprehensive Metabolic Panel IN AM Labs on day of discharge: Labs from last 24 hours 12/01/16 12/01/16 12/01/16 03:36 03:36 03:36 WBC 3.8 L RBC 4.34 Hgb 13.2 L Hct 39.1 L MCV 90.1 MCH 30 MCHC 33.8 RDW 14.0 Plt Count 144 MPV 10.0 Neut % (Auto) 63.9 Lymph % (Auto) 20.4 L [place] % (Auto) 11.8 Eos % (Auto) 3.4 Baso % (Auto) 0.5 Neut # (Auto) 2.4 Lymph # (Auto) 0.8 L [place] # (Auto) 0.5 Eos # (Auto) 0.1 Baso # (Auto) 0.0 Immature Gran % 0.0 Nucleated RBC % 0.0 Immature Gran # 0.00 Nucleated RBCs # 0.00 Sodium 132 L Potassium 5.3 H Chloride 93 L Carbon Dioxide 31 Anion Gap 13.3 BUN 33 H Creatinine 10.40 H GFR Calculation 8 BUN/Creatinine Ratio 3.00 L Glucose 73 L POC Glucose Calculated Osmolality 269.5 L Calcium 8.2 L Total Bilirubin 0.60 AST 23 ALT 21 Alkaline Phosphatase 83 Total Creatine Kinase 214 CK-MB (CK-2) 1.8 Troponin I 0.962 H D Total Protein 6.1 L Albumin 2.8 L Globulin 3.3 Albumin/Globulin Ratio 0.8 L 11/30/16 15:58 WBC RBC Hgb Hct MCV MCH MCHC RDW Plt Count MPV Neut % (Auto) Lymph % (Auto) [place] % (Auto) Eos % (Auto) Baso % (Auto) Neut # (Auto) Lymph # (Auto) [place] # (Auto) Eos # (Auto) Baso # (Auto) Immature Gran % Nucleated RBC % Immature Gran # Nucleated RBCs # Sodium Potassium Chloride Carbon Dioxide Anion Gap BUN Creatinine GFR Calculation BUN/Creatinine Ratio Glucose POC Glucose 70 L Calculated Osmolality Calcium Total Bilirubin AST ALT Alkaline Phosphatase Total Creatine Kinase CK-MB (CK-2) Troponin I Total Protein Albumin Globulin Albumin/Globulin Ratio - Imaging and Cardiology Cardiology Procedure: report reviewed by me Procedure: Chest x-ray: report reviewed by nj DS: Provider Date of admission: 11/29/16 14:16 Primary care physician: Ayden Fernandez MD Attending physician on admission: Chris Hernandes Consults: 11/29/16 12:13 Consult to Physician [CONS] Routine Comment: HD patient, needs dialysis Consulting Provider: Karthik Park Consulting Provider Notified: Yes Consult to Specialist Group: Nephrology Person Notified: JASON Date Notified: 11/29/16 Time Notified: 14:10 11/29/16 14:23 Consult to Pastoral Services [CONS] Routine Comment: Pastoral Screen: Request Gas Burner Operator Visit Pastoral Screen Source of Request: Patient Discharging clinician: Ava Storm NP Expected date of discharge: 12/01/16
--- NOTE | 2016-12-01 14:26 | Dialysis Note ---
Dialysis Note - Dialysis Note Patient seen on hemodialysis he is tolerating this well will continue his treatment unchanged.
[2016-12-01 17:53] VITALS: BP 135/78
[2016-12-01] MEDS ORDERED: AMIODARONE 200 MG TABLET PO SCH ×2 (21:00)
[2016-12-01] MEDS ORDERED: ROSUVASTATIN 20 MG TABLET PO SCH (21:00)
== END 2016-12-01 17:50 | disposition home or self-care (01) | DRG 246 ==
LOC: EDBD → EDUNIT# → N.ED 08:51 → N.EDINP 08:51 → INTOOBSV 12:12 → OBSVTOIN 12:12 → N.ICU 13:31
PROVIDERS: ADMIT Internal Medicine Cardiovascular Disease; ATTEND Internal Medicine Cardiovascular Disease
PROC: CLCCHCL (ICD-10-PCS; 2016-11-30 14:15)

== ENCOUNTER 2017-10-31 07:09 | Observation (INO) ==
[2017-10-31] MEDS ORDERED: DILTIAZEM 50 MG/10 ML VIAL IV STA (07:27)
[2017-10-31] MEDS ORDERED: DILTIAZEM INJ 100 MG in SODIUM CHLORIDE 0.9% 100 ML IV SCH (07:30)
[2017-10-31 07:57] LABS: Basophils % 0.7 % (0.0-0.8); Eosinophils # 0.1 10*3/uL (0.0-0.87); Eosinophils % 1.8 % (0.00-10.9); Hematocrit 39.2 VOL% (42.0-52.0); Hemoglobin 12.9 GM/DL (14.0-18.0); Immature Granulocytes % 0.2 %; Immature Granulocytes Absolute 0.01 #; Lymphocytes # 1.9 10*3/uL (1.4-4.0); Lymphocytes % 31.9 % (21.2-54.2); Mean Corpuscular HGB Conc 32.9 GM/DL (32-36); Mean Corpuscular Hemoglobin 30 PG (27-34); Monocytes # 0.7 10*3/uL (0.11-0.8); Monocytes % 10.9 % (1.7-12.7); Neutrophils # 3.3 10*3/uL (1.4-7.4); Neutrophils % 54.5 % (38.7-73.9); Platelet Count 134 T/CUMM (130-400); Red Blood Count 4.26 MC/CUMM (3.8-5.5)
[2017-10-31 08:07] LABS: PT Patient Result 10.7 SECS; Partial Thromboplastin Time 27.9 SECS (0-40)
[2017-10-31 08:31] LABS: Albumin 3.1 G/DL (3.4-5.0); Bilirubin,Total 0.4 MG/DL (0.2-1.0); Calcium 9.1 MG/DL (8.5-10.1); Osmolality,Calculated 291.3 MOS/KG (273-304); Potassium 4.4 MMOL/L (3.5-5.1); Thyroid Stimulating Hormone 0.833 uIU/ml (0.358-3.74); Total Protein 6.7 G/DL (6.4-8.3)
[2017-10-31 08:32] LABS: Troponin I Only 0.898 NG/ML (0.00-0.045)
[2017-10-31] MEDS ORDERED: ONDANSETRON 4 MG/2 ML VIAL IV PRN (10:10)
[2017-10-31] MEDS ORDERED: ACETAMINOPHEN 325 MG TABLET PO PRN (10:10)
[2017-10-31] MEDS ORDERED: SEVELAMER CARBONATE 800 MG TABLET PO SCH (13:30)
[2017-10-31 16:42] LABS: Troponin I Only 0.873 NG/ML (0.00-0.045)
[2017-10-31] MEDS: CLOPIDOGREL 75 MG TABLET PO SCH (17:50)
[2017-10-31] MEDS ORDERED: ROSUVASTATIN 10 MG TABLET PO SCH (21:00)
[2017-10-31] MEDS ORDERED: ASPIRIN EC 81 MG TABLET PO SCH (21:00)
[2017-10-31] MEDS ORDERED: cloNIDine 0.1 MG TABLET PO SCH (21:00)
[2017-10-31] MEDS: METOPROLOL TARTRATE 25 MG TABLET PO SCH (21:20)
[2017-10-31] MEDS: DOCUSATE SODIUM 100 MG CAPSULE PO SCH (21:21)
[2017-10-31 22:47] LABS: Troponin I Only 0.701 NG/ML (0.00-0.045)
[2017-11-01 06:51] LABS: Basophils % 0.9 % (0.0-0.8); Eosinophils # 0.2 10*3/uL (0.0-0.87); Eosinophils % 4.5 % (0.00-10.9); Hematocrit 38.1 VOL% (42.0-52.0); Hemoglobin 12.9 GM/DL (14.0-18.0); Immature Granulocytes % 0.2 %; Immature Granulocytes Absolute 0.01 #; Lymphocytes # 1.2 10*3/uL (1.4-4.0); Lymphocytes % 27.5 % (21.2-54.2); Mean Corpuscular HGB Conc 33.9 GM/DL (32-36); Mean Corpuscular Hemoglobin 30 PG (27-34); Mean Corpuscular Volume 89.9 FL (87-102); Mean Platelet Volume 9.9 FL (9.6-12.0); Monocytes # 0.6 10*3/uL (0.11-0.8); Monocytes % 12.4 % (1.7-12.7); Neutrophils # 2.4 10*3/uL (1.4-7.4); Neutrophils % 54.5 % (38.7-73.9); Platelet Count 142 T/CUMM (130-400); Red Blood Count 4.24 MC/CUMM (3.8-5.5); Red Cell Distribution Width 13.8 % (9.3-17.3); White Blood Count 4.4 T/CUMM (4-12)
[2017-11-01 07:17] LABS: Calcium 8.9 MG/DL (8.5-10.1); Osmolality,Calculated 286.4 MOS/KG (273-304); Potassium 4.3 MMOL/L (3.5-5.1)
[2017-11-01 07:26] LABS: Troponin I Only 0.573 NG/ML (0.00-0.045)
[2017-11-01] MEDS ORDERED: PANTOPRAZOLE 40 MG TABLET PO SCH (09:00)
[2017-11-01] MEDS: METOPROLOL TARTRATE 25 MG TABLET PO SCH (10:34)
[2017-11-01] MEDS: DOCUSATE SODIUM 100 MG CAPSULE PO SCH (10:35)
[2017-11-01] MEDS: CLOPIDOGREL 75 MG TABLET PO SCH (10:35)
[2017-11-01 10:55] VITALS: BP 139/90
== END 2017-11-01 14:53 | disposition home or self-care (01) ==
LOC: EDUNIT# → EDBD → N.ED 07:09 → N.EDINP 07:09 → N.5E 16:49
PROVIDERS: ADMIT Family Medicine; ATTEND Family Medicine

== ENCOUNTER 2018-03-31 09:18 | Observation (INO) ==
[2018-03-31] MEDS ORDERED: diphenhydrAMINE 50 MG/1 ML VIAL IV STA (09:37)
[2018-03-31] MEDS ORDERED: methylPREDNISolone SOD SUC 125 MG/2 ML VIAL IV STA (09:37)
[2018-03-31] MEDS ORDERED: FAMOTIDINE 20 MG/2 ML VIAL IV STA (09:37)
[2018-03-31 09:45] LABS: Basophils % 0.5 % (0.0-0.8); Eosinophils # 0.2 10*3/uL (0.0-0.87); Eosinophils % 2.6 % (0.00-10.9); Hematocrit 27.9 VOL% (42.0-52.0); Hemoglobin 9.1 GM/DL (14.0-18.0); Immature Granulocytes % 0.5 %; Immature Granulocytes Absolute 0.03 #; Lymphocytes # 0.8 10*3/uL (1.4-4.0); Lymphocytes % 12.9 % (21.2-54.2); Mean Corpuscular HGB Conc 32.6 GM/DL (32-36); Mean Corpuscular Hemoglobin 29 PG (27-34); Mean Platelet Volume 8.5 FL (9.6-12.0); Monocytes # 0.8 10*3/uL (0.11-0.8); Monocytes % 12.1 % (1.7-12.7); Neutrophils # 4.7 10*3/uL (1.4-7.4); Neutrophils % 71.4 % (38.7-73.9); Platelet Count 262 T/CUMM (130-400); Red Cell Distribution Width 17.3 % (9.3-17.3); White Blood Count 6.5 T/CUMM (4-12)
[2018-03-31 10:20] LABS: Albumin 2.8 G/DL (3.4-5.0); Calcium 9.1 MG/DL (8.5-10.1); Osmolality,Calculated 273.8 MOS/KG (273-304); Potassium 3.2 MMOL/L (3.5-5.1); Total Protein 7.4 G/DL (6.4-8.3)
[2018-03-31] MEDS ORDERED: ONDANSETRON 4 MG/2 ML VIAL IV PRN (11:16)
[2018-03-31] MEDS ORDERED: ACETAMINOPHEN 325 MG TABLET PO PRN (11:16)
[2018-03-31] MEDS ORDERED: SODIUM CHLORIDE 0.45% 1,000 ML IV SCH (11:30)
[2018-03-31] MEDS ORDERED: SEVELAMER CARBONATE 800 MG TABLET PO SCH ×2 (11:30→12:00)
[2018-03-31] MEDS ORDERED: FAMOTIDINE 20 MG/2 ML VIAL IV SCH (11:30)
[2018-03-31] MEDS ORDERED: hydrALAZINE 20 MG/1 ML VIAL IV PRN (12:27)
[2018-03-31] MEDS: methylPREDNISolone SOD SUC 40 MG/1 ML VIAL IV SCH (17:23)
[2018-03-31] MEDS ORDERED: ROSUVASTATIN 10 MG TABLET PO SCH (21:00)
[2018-03-31] MEDS ORDERED: ASPIRIN EC 81 MG TABLET PO SCH (21:00)
[2018-03-31] MEDS ORDERED: METOPROLOL SUCCINATE XL 25 MG TABLET PO SCH (21:00)
[2018-03-31] MEDS: DOCUSATE SODIUM 100 MG CAPSULE PO SCH (21:21)
[2018-04-01] MEDS: methylPREDNISolone SOD SUC 40 MG/1 ML VIAL IV SCH ×2 (02:08→09:48)
[2018-04-01 07:24] VITALS: BP 154/79
[2018-04-01] MEDS: DOCUSATE SODIUM 100 MG CAPSULE PO SCH (08:37)
[2018-04-01] MEDS ORDERED: PANTOPRAZOLE 40 MG TABLET PO SCH (09:00)
== END 2018-04-01 10:53 | disposition home or self-care (01) ==
LOC: N.ED 09:18 → N.EDINP 09:18 → N.TELEN 11:53
PROVIDERS: ADMIT Family Medicine; ATTEND Family Medicine

== ENCOUNTER 2018-08-18 16:50 | Inpatient (IN) ==
[2018-08-18] MEDS ORDERED: ONDANSETRON 4 MG/2 ML VIAL IV PRN (20:46)
[2018-08-18] MEDS ORDERED: ROSUVASTATIN 10 MG TABLET PO SCH (21:00)
[2018-08-18 21:14] LABS: Basophils % 0.6 % (0.0-0.8); Eosinophils # 0.1 10*3/uL (0.0-0.87); Hematocrit 30.9 VOL% (42.0-52.0); Lymphocytes # 1.1 10*3/uL (1.4-4.0); Lymphocytes % 32.2 % (21.2-54.2); Mean Corpuscular HGB Conc 32.4 GM/DL (32-36); Mean Corpuscular Hemoglobin 31 PG (27-34); Mean Corpuscular Volume 95.4 FL (87-102); Mean Platelet Volume 11.1 FL (9.6-12.0); Monocytes # 0.5 10*3/uL (0.11-0.8); Monocytes % 13.3 % (1.7-12.7); Neutrophils # 1.7 10*3/uL (1.4-7.4); Neutrophils % 50.9 % (38.7-73.9); Platelet Count 100 T/CUMM (130-400); Red Blood Count 3.24 MC/CUMM (3.8-5.5); Red Cell Distribution Width 16.1 % (9.3-17.3); White Blood Count 3.4 T/CUMM (4-12)
[2018-08-18 21:26] LABS: PT Patient Result 11.3 SECS; Partial Thromboplastin Time 26.9 SECS (0-40)
[2018-08-18 21:49] LABS: Albumin 3.2 G/DL (3.4-5.0); Bilirubin,Total 0.7 MG/DL (0.2-1.0); Calcium 8.9 MG/DL (8.5-10.1); Osmolality,Calculated 277.5 MOS/KG (273-304); Potassium 3.6 MMOL/L (3.5-5.1); Total Protein 7.2 G/DL (6.4-8.3)
[2018-08-18] MEDS: METOPROLOL TARTRATE 25 MG TABLET PO SCH (23:14)
[2018-08-19] MEDS ORDERED: PANTOPRAZOLE 40 MG TABLET PO SCH (09:00)
[2018-08-19] MEDS ORDERED: ASPIRIN CHEW 81 MG TABLET PO SCH (09:00)
[2018-08-19] MEDS: SEVELAMER CARBONATE 800 MG TABLET PO SCH ×2 (09:05→14:37)
[2018-08-19] MEDS: METOPROLOL TARTRATE 25 MG TABLET PO SCH (09:06)
[2018-08-19 13:11] VITALS: BP 162/91
== END 2018-08-19 14:30 | disposition home or self-care (01) | DRG 604 ==
LOC: N.ED 16:50 → N.EDINP 20:45 → N.3E 21:19
PROVIDERS: ADMIT Surgery; ATTEND Surgery

== ENCOUNTER 2018-09-17 00:41 | Inpatient (IN) ==
[2018-09-17] MEDS ORDERED: SODIUM CHLORIDE 0.9% 500 ML IV STA (01:23)
[2018-09-17] MEDS ORDERED: ONDANSETRON 4 MG/2 ML VIAL IV ONE (01:23)
[2018-09-17] MEDS ORDERED: ACETAMINOPHEN 325 MG TABLET PO ONE (01:23)
[2018-09-17] MEDS ORDERED: MORPHINE 4 MG/1 ML VIAL IV ONE (01:23)
[2018-09-17 02:27] LABS: Basophils % 0.1 % (0.0-0.8); Eosinophils % 0.1 % (0.00-10.9); Hematocrit 31.8 VOL% (42.0-52.0); Hemoglobin 10.3 GM/DL (14.0-18.0); Immature Granulocytes % 0.8 %; Immature Granulocytes Absolute 0.06 #; Lymphocytes # 0.2 10*3/uL (1.4-4.0); Lymphocytes % 2.9 % (21.2-54.2); Mean Corpuscular HGB Conc 32.4 GM/DL (32-36); Mean Corpuscular Volume 95.2 FL (87-102); Mean Platelet Volume 10.1 FL (9.6-12.0); Monocytes % 4.9 % (1.7-12.7); Neutrophils % 91.2 % (38.7-73.9); Platelet Count 110 T/CUMM (130-400); Red Blood Count 3.34 MC/CUMM (3.8-5.5); Red Cell Distribution Width 16.5 % (9.3-17.3); White Blood Count 7.2 T/CUMM (4-12)
[2018-09-17] MEDS ORDERED: LABETALOL 20 MG/4 ML SYRINGE IV ONE (02:30)
[2018-09-17] MEDS ORDERED: LABETALOL 20 MG/4 ML SYRINGE IV STA (02:31)
[2018-09-17 02:35] LABS: PT Patient Result 11.3 SECS
[2018-09-17 02:50] LABS: Band Neutrophils 6 % (0-10); Lymphocytes 7 % (20-55); Metamyelocytes 1 %; Segmented Neutrophils 82 % (50-85); Total Cells Counted 100
[2018-09-17 02:51] LABS: Hypochromasia Slight; Platelet Estimate Decreased
[2018-09-17 03:00] LABS: Albumin 2.9 G/DL (3.4-5.0); Bilirubin,Total 1.2 MG/DL (0.2-1.0); Calcium 9.1 MG/DL (8.5-10.1); Total Protein 6.8 G/DL (6.4-8.3)
[2018-09-17] MEDS ORDERED: IBUPROFEN 800 MG TABLET PO STA (03:09)
[2018-09-17] MEDS ORDERED: PIPERACILLIN/TAZOBACTAM 3,375 MG in SODIUM CHLORIDE 0.9% 100 ML IV STA (03:13)
[2018-09-17] MEDS ORDERED: VANCOMYCIN INJ 1,000 MG in SODIUM CHLORIDE 0.9% 250 ML IV STA ×2 (03:13→07:31)
[2018-09-17] MEDS ORDERED: ONDANSETRON 4 MG/2 ML VIAL IV PRN (03:40)
[2018-09-17] MEDS ORDERED: MORPHINE 4 MG/1 ML VIAL IV PRN (03:40)
[2018-09-17] MEDS ORDERED: ACETAMINOPHEN 325 MG TABLET PO PRN (03:40)
[2018-09-17] MEDS ORDERED: ENOXAPARIN 30 MG/0.3 ML SYRINGE SUBCUT SCH (09:00)
[2018-09-17] MEDS ORDERED: PANTOPRAZOLE 40 MG TABLET PO SCH (09:00)
[2018-09-17 09:19] VITALS: BP 134/76
[2018-09-17] MEDS ORDERED: PIPERACILLIN/TAZOBACTAM 3,375 MG in SODIUM CHLORIDE 0.9% 100 ML IV SCH (16:00)
== END 2018-09-17 13:19 | disposition home or self-care (01) | DRG 871 ==
LOC: EDBD → EDUNIT# → N.ED 00:41 → N.EDINP 03:40 → SUATTDRO 03:40 → N.5E 04:16
PROVIDERS: ADMIT Family Medicine; ATTEND Phlebology

== ENCOUNTER 2018-10-18 13:40 | Inpatient (IN) ==
[2018-10-18] MEDS ORDERED: ACETAMINOPHEN 500 MG TABLET PO STA (14:23)
[2018-10-18] MEDS ORDERED: VANCOMYCIN INJ 1,250 MG in SODIUM CHLORIDE 0.9% 250 ML IV STA (15:34)
[2018-10-18 15:37] LABS: Basophils % 0.1 % (0.0-0.8); Hematocrit 33.7 VOL% (42.0-52.0); Hemoglobin 10.8 GM/DL (14.0-18.0); Immature Granulocytes % 1.5 %; Lymphocytes # 0.5 10*3/uL (1.4-4.0); Lymphocytes % 3.4 % (21.2-54.2); Mean Corpuscular Volume 89.9 FL (87-102); Mean Platelet Volume 11.3 FL (9.6-12.0); Monocytes % 4.7 % (1.7-12.7); Neutrophils % 90.3 % (38.7-73.9); Red Blood Count 3.75 MC/CUMM (3.8-5.5); Red Cell Distribution Width 15.9 % (9.3-17.3); White Blood Count 13.7 T/CUMM (4-12)
[2018-10-18 15:40] LABS: Platelet Count 76 T/CUMM (130-400)
[2018-10-18 16:00] LABS: Albumin 2.7 G/DL (3.4-5.0); Bilirubin,Total 1.5 MG/DL (0.2-1.0); Calcium 9.5 MG/DL (8.5-10.1); Osmolality,Calculated 270.1 MOS/KG (273-304)
[2018-10-18 17:01] LABS: Platelet Estimate Adequate
[2018-10-18] MEDS ORDERED: DEXTROSE 50% 25 GM/50 ML VIAL IV PRN (18:28)
[2018-10-18] MEDS ORDERED: GLUCAGON 1 MG VIAL IM PRN (18:28)
[2018-10-18] MEDS ORDERED: VANCOMYCIN INJ 750 MG in SODIUM CHLORIDE 0.9% 250 ML IV PRN (18:59)
[2018-10-18] MEDS ORDERED: VANCOMYCIN INJ 750 MG in SODIUM CHLORIDE 0.9% 250 ML IV ONE (21:00)
[2018-10-18] MEDS ORDERED: INSULIN LISPRO 100 UNIT/ML SUBCUT SCH (21:00)
[2018-10-18] MEDS: METOPROLOL SUCCINATE XL 25 MG TABLET PO SCH (21:40)
[2018-10-18] MEDS: ROSUVASTATIN 10 MG TABLET PO SCH (21:40)
[2018-10-18] MEDS: SEVELAMER CARBONATE 800 MG TABLET PO SCH (21:40)
[2018-10-18] MEDS: ASPIRIN EC 81 MG TABLET PO SCH (21:40)
[2018-10-19 04:43] LABS: Basophils % 0.2 % (0.0-0.8); Hematocrit 33.5 VOL% (42.0-52.0); Hemoglobin 10.8 GM/DL (14.0-18.0); Immature Granulocytes % 1.2 %; Immature Granulocytes Absolute 0.16 #; Lymphocytes # 0.6 10*3/uL (1.4-4.0); Lymphocytes % 4.2 % (21.2-54.2); Mean Corpuscular HGB Conc 32.2 GM/DL (32-36); Mean Corpuscular Volume 88.9 FL (87-102); Mean Platelet Volume 10.9 FL (9.6-12.0); Monocytes % 2.7 % (1.7-12.7); Neutrophils % 91.7 % (38.7-73.9); Red Blood Count 3.77 MC/CUMM (3.8-5.5); Red Cell Distribution Width 15.9 % (9.3-17.3); White Blood Count 13.6 T/CUMM (4-12)
[2018-10-19 05:02] LABS: Blood Urea Nitrogen 24 MG/DL (7-18); Glucose 102 MG/DL (74-106); HDL Cholesterol < 10 MG/DL (40-60); Osmolality,Calculated 271.2 MOS/KG (273-304); Triglycerides 121 MG/DL (2-150); VLDL CHOLESTEROL 24.2 MG/DL
[2018-10-19 05:03] LABS: Platelet Count 51 T/CUMM (130-400)
[2018-10-19 05:38] LABS: Band Neutrophils 8 % (0-10); Hypochromasia 1+; Lymphocytes 6 % (20-55); Segmented Neutrophils 84 % (50-85); Total Cells Counted 100
[2018-10-19 05:39] LABS: Microcytosis Slight; Ovalocytes Slight
[2018-10-19 05:40] LABS: Platelet Estimate Decreased
[2018-10-19] MEDS: traMADol 50 MG TABLET PO PRN (06:08)
[2018-10-19] MEDS ORDERED: diphenhydrAMINE 50 MG/1 ML VIAL IV PRN (08:21)
[2018-10-19] MEDS: MORPHINE 4 MG/1 ML VIAL IV PRN ×2 (08:49→21:59)
[2018-10-19] MEDS: PIPERACILLIN/TAZOBACTAM 3,375 MG in SODIUM CHLORIDE 0.9% 100 ML IV SCH ×2 (08:50→21:53)
[2018-10-19] MEDS: SEVELAMER CARBONATE 800 MG TABLET PO SCH ×5 (09:06→21:54)
[2018-10-19] MEDS: PANTOPRAZOLE 40 MG TABLET PO SCH (11:28)
[2018-10-19] MEDS ORDERED: LIDOCAINE 1%/EPI INJ 20 ML VIAL ONE (12:03)
[2018-10-19] MEDS ORDERED: PROPOFOL 200 MG/20 ML VIAL IV ONE (12:40)
[2018-10-19] MEDS: ASPIRIN EC 81 MG TABLET PO SCH (21:54)
[2018-10-19] MEDS: ROSUVASTATIN 10 MG TABLET PO SCH (21:54)
[2018-10-19] MEDS: METOPROLOL SUCCINATE XL 25 MG TABLET PO SCH (21:54)
[2018-10-20 05:23] LABS: Basophils % 0.2 % (0.0-0.8); Eosinophils # 0.1 10*3/uL (0.0-0.87); Eosinophils % 0.6 % (0.00-10.9); Hematocrit 30.7 VOL% (42.0-52.0); Hemoglobin 10.2 GM/DL (14.0-18.0); Immature Granulocytes % 1.7 %; Immature Granulocytes Absolute 0.28 #; Lymphocytes # 1.1 10*3/uL (1.4-4.0); Lymphocytes % 6.6 % (21.2-54.2); Mean Corpuscular HGB Conc 33.2 GM/DL (32-36); Mean Corpuscular Volume 87.2 FL (87-102); Monocytes % 9.7 % (1.7-12.7); NRBC # 0.02 10*3/uL; Neutrophils % 81.2 % (38.7-73.9); Red Blood Count 3.52 MC/CUMM (3.8-5.5); Red Cell Distribution Width 15.9 % (9.3-17.3); White Blood Count 16.8 T/CUMM (4-12)
[2018-10-20 05:26] LABS: Platelet Count 39 T/CUMM (130-400)
[2018-10-20 05:41] LABS: Calcium 8.6 MG/DL (8.5-10.1); Osmolality,Calculated 269.8 MOS/KG (273-304)
[2018-10-20 05:51] LABS: Eosinophils 1 % (0-10); Lymphocytes 9 % (20-55); Segmented Neutrophils 86 % (50-85); Total Cells Counted 100
[2018-10-20 05:53] LABS: Anisocytosis Slight; Microcytosis 1+
[2018-10-20 05:54] LABS: Ovalocytes Slight; Platelet Estimate Decreased
[2018-10-20] MEDS: MORPHINE 4 MG/1 ML VIAL IV PRN (05:54)
[2018-10-20] MEDS: SEVELAMER CARBONATE 800 MG TABLET PO SCH ×5 (08:26→21:03)
[2018-10-20] MEDS: traMADol 50 MG TABLET PO PRN (08:26)
[2018-10-20] MEDS: PANTOPRAZOLE 40 MG TABLET PO SCH (08:26)
[2018-10-20] MEDS: PIPERACILLIN/TAZOBACTAM 3,375 MG in SODIUM CHLORIDE 0.9% 100 ML IV SCH (08:27)
[2018-10-20] MEDS ORDERED: GENTAMICIN INJ 160 MG in SODIUM CHLORIDE 0.9% 100 ML IV ONE (10:01)
[2018-10-20] MEDS ORDERED: TOBRAMYCIN INJ 160 MG in SODIUM CHLORIDE 0.9% 100 ML IV PRN (10:09)
[2018-10-20] MEDS ORDERED: SODIUM CHLORIDE 0.9% IV ONE (14:00)
[2018-10-20] MEDS ORDERED: TOBRAMYCIN IV ONE (14:00)
[2018-10-20] MEDS: ROSUVASTATIN 10 MG TABLET PO SCH (21:03)
[2018-10-20] MEDS: METOPROLOL SUCCINATE XL 25 MG TABLET PO SCH (21:03)
[2018-10-20] MEDS: ASPIRIN EC 81 MG TABLET PO SCH (21:04)
[2018-10-20] MEDS: KETOROLAC 30 MG/1 ML VIAL IV PRN (21:09)
[2018-10-21 04:28] LABS: Basophils % 0.3 % (0.0-0.8); Eosinophils # 0.2 10*3/uL (0.0-0.87); Eosinophils % 1.3 % (0.00-10.9); Hematocrit 29.7 VOL% (42.0-52.0); Hemoglobin 9.8 GM/DL (14.0-18.0); Immature Granulocytes % 1.4 %; Immature Granulocytes Absolute 0.18 #; Lymphocytes # 0.9 10*3/uL (1.4-4.0); Lymphocytes % 6.4 % (21.2-54.2); Mean Corpuscular Volume 86.3 FL (87-102); Monocytes % 10.7 % (1.7-12.7); Neutrophils % 79.9 % (38.7-73.9); Platelet Count 47 T/CUMM (130-400); Red Blood Count 3.44 MC/CUMM (3.8-5.5); Red Cell Distribution Width 16.1 % (9.3-17.3); White Blood Count 13.2 T/CUMM (4-12)
[2018-10-21 04:54] LABS: Calcium 8.3 MG/DL (8.5-10.1); Osmolality,Calculated 272.5 MOS/KG (273-304)
[2018-10-21 06:37] LABS: Platelet Estimate Decreased
[2018-10-21 06:38] LABS: Anisocytosis 1+; Macrocytosis Slight; Poikilocytosis Slight
[2018-10-21] MEDS: PANTOPRAZOLE 40 MG TABLET PO SCH (09:23)
[2018-10-21] MEDS: SEVELAMER CARBONATE 800 MG TABLET PO SCH ×4 (09:23→18:11)
[2018-10-21] MEDS: ROSUVASTATIN 10 MG TABLET PO SCH (21:52)
[2018-10-21] MEDS: ASPIRIN EC 81 MG TABLET PO SCH (21:52)
[2018-10-21] MEDS: METOPROLOL SUCCINATE XL 25 MG TABLET PO SCH (21:53)
[2018-10-22 05:59] LABS: Basophils % 0.3 % (0.0-0.8); Eosinophils # 0.2 10*3/uL (0.0-0.87); Eosinophils % 1.7 % (0.00-10.9); Hematocrit 29.8 VOL% (42.0-52.0); Hemoglobin 9.7 GM/DL (14.0-18.0); Immature Granulocytes % 0.5 %; Immature Granulocytes Absolute 0.06 #; Lymphocytes # 0.9 10*3/uL (1.4-4.0); Lymphocytes % 8.2 % (21.2-54.2); Mean Corpuscular HGB Conc 32.6 GM/DL (32-36); Mean Corpuscular Volume 86.9 FL (87-102); Monocytes % 10.7 % (1.7-12.7); Neutrophils % 78.6 % (38.7-73.9); Platelet Count 68 T/CUMM (130-400); Red Blood Count 3.43 MC/CUMM (3.8-5.5); Red Cell Distribution Width 16.2 % (9.3-17.3); White Blood Count 11.5 T/CUMM (4-12)
[2018-10-22 06:21] LABS: Acanthocytes Few; Albumin 1.9 G/DL (3.4-5.0); Anisocytosis 1+; Bilirubin,Total 1.1 MG/DL (0.2-1.0); Calcium 8.3 MG/DL (8.5-10.1); Osmolality,Calculated 273.8 MOS/KG (273-304); Ovalocytes Few; Platelet Estimate Decreased; Total Protein 6.3 G/DL (6.4-8.3)
[2018-10-22] MEDS: SEVELAMER CARBONATE 800 MG TABLET PO SCH ×3 (09:44→16:36)
[2018-10-22] MEDS: PANTOPRAZOLE 40 MG TABLET PO SCH (09:44)
[2018-10-22] MEDS: METOPROLOL SUCCINATE XL 25 MG TABLET PO SCH (21:34)
[2018-10-22] MEDS: ASPIRIN EC 81 MG TABLET PO SCH (21:35)
[2018-10-22] MEDS: ROSUVASTATIN 10 MG TABLET PO SCH (21:35)
[2018-10-23 04:28] LABS: Basophils # 0.1 10*3/uL (0.0-0.2); Basophils % 0.5 % (0.0-0.8); Eosinophils # 0.2 10*3/uL (0.0-0.87); Eosinophils % 1.6 % (0.00-10.9); Hematocrit 31.4 VOL% (42.0-52.0); Hemoglobin 10.2 GM/DL (14.0-18.0); Immature Granulocytes % 0.9 %; Immature Granulocytes Absolute 0.09 #; Lymphocytes # 0.8 10*3/uL (1.4-4.0); Lymphocytes % 7.6 % (21.2-54.2); Mean Corpuscular HGB Conc 32.5 GM/DL (32-36); Mean Corpuscular Volume 86.3 FL (87-102); Mean Platelet Volume 10.9 FL (9.6-12.0); Monocytes % 8.6 % (1.7-12.7); Neutrophils % 80.8 % (38.7-73.9); Platelet Count 84 T/CUMM (130-400); Red Blood Count 3.64 MC/CUMM (3.8-5.5); Red Cell Distribution Width 15.9 % (9.3-17.3); White Blood Count 10.3 T/CUMM (4-12)
[2018-10-23 05:04] LABS: Eosinophils 2 % (0-10); Hypochromasia 1+; Lymphocytes 5 % (20-55); Platelet Estimate Decreased; Segmented Neutrophils 85 % (50-85); Total Cells Counted 100
[2018-10-23 05:06] LABS: Albumin 1.8 G/DL (3.4-5.0); Bilirubin,Total 1.3 MG/DL (0.2-1.0); Calcium 8.8 MG/DL (8.5-10.1); Osmolality,Calculated 274.9 MOS/KG (273-304); Total Protein 6.1 G/DL (6.4-8.3)
[2018-10-23] MEDS: traMADol 50 MG TABLET PO PRN (06:12)
[2018-10-23] MEDS: SEVELAMER CARBONATE 800 MG TABLET PO SCH ×3 (07:58→16:17)
[2018-10-23] MEDS: PANTOPRAZOLE 40 MG TABLET PO SCH (07:59)
[2018-10-23 14:42] LABS: Calcium 8.8 MG/DL (8.5-10.1); Osmolality,Calculated 274.5 MOS/KG (273-304)
[2018-10-23] MEDS ORDERED: TOBRAMYCIN INJ 160 MG in SODIUM CHLORIDE 0.9% 100 ML IV ONE (17:00)
[2018-10-23] MEDS: METOPROLOL SUCCINATE XL 25 MG TABLET PO SCH (20:22)
[2018-10-23] MEDS: ASPIRIN EC 81 MG TABLET PO SCH (20:23)
[2018-10-23] MEDS: ROSUVASTATIN 10 MG TABLET PO SCH (20:23)
[2018-10-24] MEDS ORDERED: ACETAMINOPHEN 325 MG TABLET PO ONE (03:58)
[2018-10-24 05:19] LABS: Basophils % 0.4 % (0.0-0.8); Eosinophils # 0.1 10*3/uL (0.0-0.87); Eosinophils % 0.8 % (0.00-10.9); Hematocrit 32.4 VOL% (42.0-52.0); Hemoglobin 10.3 GM/DL (14.0-18.0); Immature Granulocytes % 1.3 %; Immature Granulocytes Absolute 0.14 #; Lymphocytes # 0.9 10*3/uL (1.4-4.0); Lymphocytes % 8.6 % (21.2-54.2); Mean Corpuscular HGB Conc 31.8 GM/DL (32-36); Mean Corpuscular Volume 87.1 FL (87-102); Mean Platelet Volume 10.3 FL (9.6-12.0); Monocytes % 10.4 % (1.7-12.7); Neutrophils % 78.5 % (38.7-73.9); Platelet Count 133 T/CUMM (130-400); Red Blood Count 3.72 MC/CUMM (3.8-5.5); Red Cell Distribution Width 15.9 % (9.3-17.3); White Blood Count 10.6 T/CUMM (4-12)
[2018-10-24 05:58] LABS: Calcium 8.8 MG/DL (8.5-10.1); Osmolality,Calculated 273.7 MOS/KG (273-304)
[2018-10-24] MEDS ORDERED: LIDOCAINE 1%/EPI INJ 20 ML VIAL ONE (07:16)
[2018-10-24] MEDS ORDERED: HEPARIN 5,000 UNIT/1 ML VIAL ONE (07:16)
[2018-10-24] MEDS ORDERED: BUPIVACAINE MPF 0.25% /EPI 30 ML VIAL ONE (07:16)
[2018-10-24] MEDS ORDERED: VANCOMYCIN 1,000 MG VIAL ONE (07:37)
[2018-10-24] MEDS: PANTOPRAZOLE 40 MG TABLET PO SCH (08:08)
[2018-10-24] MEDS: SEVELAMER CARBONATE 800 MG TABLET PO SCH ×3 (08:08→16:40)
[2018-10-24] MEDS ORDERED: LIDOCAINE 1% 5 ML VIAL ONE (08:42)
[2018-10-24] MEDS ORDERED: PROPOFOL 200 MG/20 ML VIAL IV ONE (08:42)
[2018-10-24] MEDS ORDERED: SODIUM CHLORIDE 0.9% 250 ML IV ONE (08:43)
[2018-10-24] MEDS ORDERED: MIDAZOLAM 2 MG/2 ML VIAL ONE (08:43)
[2018-10-24] MEDS ORDERED: ONDANSETRON 4 MG/2 ML VIAL ONE (08:43)
[2018-10-24] MEDS ORDERED: KETAMINE 500 MG/10 ML VIAL ONE (08:43)
[2018-10-24] MEDS ORDERED: SODIUM CHLORIDE 0.9% 100 ML IV ONE (08:43)
[2018-10-24] MEDS ORDERED: fentaNYL 100 MCG/2 ML VIAL ONE (08:43)
[2018-10-24] MEDS: ROSUVASTATIN 10 MG TABLET PO SCH (21:23)
[2018-10-24] MEDS: METOPROLOL SUCCINATE XL 25 MG TABLET PO SCH (21:23)
[2018-10-24] MEDS: traMADol 50 MG TABLET PO PRN (21:24)
[2018-10-24] MEDS: ASPIRIN EC 81 MG TABLET PO SCH (21:24)
[2018-10-24] MEDS ORDERED: cloNIDine 0.1 MG TABLET PO ONE (22:47)
[2018-10-25] MEDS: hydrALAZINE 25 MG TABLET PO PRN (01:46)
[2018-10-25 04:54] LABS: Basophils # 0.1 10*3/uL (0.0-0.2); Basophils % 0.5 % (0.0-0.8); Eosinophils # 0.3 10*3/uL (0.0-0.87); Hematocrit 26.8 VOL% (42.0-52.0); Hemoglobin 8.9 GM/DL (14.0-18.0); Immature Granulocytes % 1.3 %; Immature Granulocytes Absolute 0.14 #; Lymphocytes # 1.1 10*3/uL (1.4-4.0); Lymphocytes % 10.1 % (21.2-54.2); Mean Corpuscular HGB Conc 33.2 GM/DL (32-36); Mean Corpuscular Volume 85.6 FL (87-102); Mean Platelet Volume 10.8 FL (9.6-12.0); Monocytes % 19.4 % (1.7-12.7); Neutrophils % 65.7 % (38.7-73.9); Platelet Count 147 T/CUMM (130-400); Red Blood Count 3.13 MC/CUMM (3.8-5.5); White Blood Count 10.5 T/CUMM (4-12)
[2018-10-25 05:20] LABS: Albumin 1.7 G/DL (3.4-5.0); Bilirubin,Total 1.8 MG/DL (0.2-1.0); Calcium 8.6 MG/DL (8.5-10.1); Osmolality,Calculated 279.7 MOS/KG (273-304)
[2018-10-25 05:26] LABS: Acanthocytes Few; Anisocytosis 1+; Hypochromasia 1+; Platelet Estimate Adequate; Target Cells Few
[2018-10-25] MEDS ORDERED: SILVER NITRATE STICK 1 EACH TOP ONE (08:31)
[2018-10-25] MEDS: SEVELAMER CARBONATE 800 MG TABLET PO SCH ×3 (08:34→17:49)
[2018-10-25] MEDS: traMADol 50 MG TABLET PO PRN ×2 (08:34→20:26)
[2018-10-25] MEDS: PANTOPRAZOLE 40 MG TABLET PO SCH (08:34)
[2018-10-25] MEDS: cloNIDine 0.1 MG TABLET PO SCH ×2 (08:34→20:26)
[2018-10-25] MEDS ORDERED: amLODIPine 5 MG TABLET PO SCH (09:00)
[2018-10-25] MEDS ORDERED: HEPARIN 10,000 UNIT/10 ML VIAL IV SCH (11:30)
[2018-10-25] MEDS ORDERED: amLODIPine 5 MG TABLET PO ONE (12:00)
[2018-10-25] MEDS ORDERED: TOBRAMYCIN INJ 160 MG in SODIUM CHLORIDE 0.9% 100 ML IV ONE (17:00)
[2018-10-25] MEDS ORDERED: LIDOCAINE 1% 20 ML VIAL MISC INJ ONE (17:07)
[2018-10-25] MEDS: MORPHINE 4 MG/1 ML VIAL IV PRN (17:49)
[2018-10-25 19:50] LABS: Cholesterol Crystals None Seen /LPF
[2018-10-25 19:51] LABS: Cholesterol Crystals None Seen /LPF
[2018-10-25 20:23] LABS: Lymphocytes,Synovial Fluid 3 %; Neutrophils,Synovial Fluid 93 %
[2018-10-25] MEDS: METOPROLOL SUCCINATE XL 25 MG TABLET PO SCH (20:25)
[2018-10-25] MEDS: ROSUVASTATIN 10 MG TABLET PO SCH (20:25)
[2018-10-25 20:26] LABS: Lymphocytes,Synovial Fluid 6 %; Neutrophils,Synovial Fluid 91 %
[2018-10-25] MEDS: ASPIRIN EC 81 MG TABLET PO SCH ×2 (20:26→20:33)
[2018-10-26 04:43] LABS: Basophils % 0.3 % (0.0-0.8); Eosinophils # 0.2 10*3/uL (0.0-0.87); Eosinophils % 2.3 % (0.00-10.9); Hematocrit 25.3 VOL% (42.0-52.0); Hemoglobin 8.1 GM/DL (14.0-18.0); Immature Granulocytes % 0.8 %; Immature Granulocytes Absolute 0.08 #; Lymphocytes # 1.1 10*3/uL (1.4-4.0); Mean Corpuscular Volume 86.6 FL (87-102); Mean Platelet Volume 10.3 FL (9.6-12.0); Monocytes % 15.2 % (1.7-12.7); Neutrophils % 71.4 % (38.7-73.9); Platelet Count 170 T/CUMM (130-400); Red Blood Count 2.92 MC/CUMM (3.8-5.5); Red Cell Distribution Width 15.9 % (9.3-17.3); White Blood Count 10.6 T/CUMM (4-12)
[2018-10-26 05:11] LABS: Calcium 8.7 MG/DL (8.5-10.1); Osmolality,Calculated 278.2 MOS/KG (273-304)
[2018-10-26] MEDS: SEVELAMER CARBONATE 800 MG TABLET PO SCH ×3 (09:33→18:23)
[2018-10-26] MEDS: amLODIPine 5 MG TABLET PO SCH (11:34)
[2018-10-26] MEDS: PANTOPRAZOLE 40 MG TABLET PO SCH (11:34)
[2018-10-26] MEDS: cloNIDine 0.1 MG TABLET PO SCH ×2 (11:34→21:13)
[2018-10-26] MEDS ORDERED: BACITRACIN OINT 0.9 GM PACK TOP ONE (17:41)
[2018-10-26] MEDS ORDERED: MAGNESIUM HYDROXIDE SUSP 30 ML UDCUP PO PRN (18:27)
[2018-10-26] MEDS ORDERED: MORPHINE 4 MG/1 ML VIAL IV PRN ×2 (18:27)
[2018-10-26] MEDS ORDERED: HYDROmorphone 2 MG/1 ML VIAL ONE (18:42)
[2018-10-26] MEDS ORDERED: ONDANSETRON 4 MG/2 ML VIAL ONE (18:42)
[2018-10-26] MEDS: HYDROmorphone 2 MG/1 ML VIAL IV PRN ×4 (18:44→19:16)
[2018-10-26] MEDS ORDERED: ONDANSETRON 4 MG/2 ML VIAL IV PRN (18:48)
[2018-10-26] MEDS ORDERED: MIDAZOLAM 2 MG/2 ML VIAL ONE (18:51)
[2018-10-26] MEDS ORDERED: GLYCOPYRROLATE 0.4 MG/2 ML VIAL ONE (18:51)
[2018-10-26] MEDS ORDERED: DESFLURANE 1 UNIT/15 MINUTE INH ONE (18:51)
[2018-10-26] MEDS ORDERED: PROPOFOL 200 MG/20 ML VIAL IV ONE (18:51)
[2018-10-26] MEDS ORDERED: fentaNYL 100 MCG/2 ML VIAL ONE (18:51)
[2018-10-26] MEDS ORDERED: ROCURONIUM 100 MG/10 ML VIAL IV ONE (18:52)
[2018-10-26] MEDS ORDERED: NEOSTIGMINE 10 MG/10 ML VIAL ONE (18:52)
[2018-10-26] MEDS ORDERED: hydrALAZINE 20 MG/1 ML VIAL ONE (19:06)
[2018-10-26] MEDS ORDERED: hydrALAZINE 20 MG/1 ML VIAL IV ONE (19:09)
[2018-10-26] MEDS: METOPROLOL SUCCINATE XL 25 MG TABLET PO SCH (21:13)
[2018-10-26] MEDS: ROSUVASTATIN 10 MG TABLET PO SCH (21:13)
[2018-10-26] MEDS: ASPIRIN EC 81 MG TABLET PO SCH (21:13)
[2018-10-26] MEDS: KETOROLAC 30 MG/1 ML VIAL IV PRN (21:17)
[2018-10-27] MEDS: cloNIDine 0.1 MG TABLET PO SCH ×3 (07:52→20:58)
[2018-10-27] MEDS: amLODIPine 5 MG TABLET PO SCH ×2 (07:52→09:08)
[2018-10-27] MEDS: PANTOPRAZOLE 40 MG TABLET PO SCH ×2 (07:52→09:08)
[2018-10-27] MEDS: SEVELAMER CARBONATE 800 MG TABLET PO SCH ×3 (07:52→16:55)
[2018-10-27 08:59] LABS: Basophils % 0.3 % (0.0-0.8); Eosinophils # 0.1 10*3/uL (0.0-0.87); Eosinophils % 1.4 % (0.00-10.9); Hematocrit 23.4 VOL% (42.0-52.0); Hemoglobin 7.4 GM/DL (14.0-18.0); Immature Granulocytes % 1.1 %; Lymphocytes # 0.9 10*3/uL (1.4-4.0); Lymphocytes % 9.2 % (21.2-54.2); Mean Corpuscular HGB Conc 31.6 GM/DL (32-36); Mean Platelet Volume 9.9 FL (9.6-12.0); Monocytes % 10.9 % (1.7-12.7); Neutrophils % 77.1 % (38.7-73.9); Platelet Count 198 T/CUMM (130-400); Red Blood Count 2.66 MC/CUMM (3.8-5.5); White Blood Count 9.3 T/CUMM (4-12)
[2018-10-27 09:32] LABS: Albumin 1.5 G/DL (3.4-5.0); Bilirubin,Total 1.4 MG/DL (0.2-1.0); Calcium 8.4 MG/DL (8.5-10.1); Osmolality,Calculated 278.7 MOS/KG (273-304); Total Protein 5.6 G/DL (6.4-8.3)
[2018-10-27] MEDS ORDERED: TOBRAMYCIN INJ 160 MG in SODIUM CHLORIDE 0.9% 100 ML IV ONE (10:00)
[2018-10-27 12:07] LABS: Hemoglobin 8.2 GM/DL (14.0-18.0)
[2018-10-27] MEDS: ROSUVASTATIN 10 MG TABLET PO SCH (20:58)
[2018-10-27] MEDS: ASPIRIN EC 81 MG TABLET PO SCH (20:58)
[2018-10-27] MEDS: METOPROLOL SUCCINATE XL 25 MG TABLET PO SCH (20:58)
[2018-10-28 05:47] LABS: Albumin 1.5 G/DL (3.4-5.0); Calcium 8.3 MG/DL (8.5-10.1); Osmolality,Calculated 276.2 MOS/KG (273-304); Total Protein 5.5 G/DL (6.4-8.3)
[2018-10-28 06:40] LABS: Basophils % 0.4 % (0.0-0.8); Eosinophils # 0.2 10*3/uL (0.0-0.87); Eosinophils % 2.9 % (0.00-10.9); Hematocrit 21.5 VOL% (42.0-52.0); Immature Granulocytes % 0.6 %; Immature Granulocytes Absolute 0.05 #; Lymphocytes # 0.9 10*3/uL (1.4-4.0); Lymphocytes % 11.5 % (21.2-54.2); Mean Corpuscular HGB Conc 32.6 GM/DL (32-36); Mean Corpuscular Volume 86.7 FL (87-102); Mean Platelet Volume 9.7 FL (9.6-12.0); Monocytes % 11.1 % (1.7-12.7); Neutrophils % 73.5 % (38.7-73.9); Platelet Count 204 T/CUMM (130-400); Red Blood Count 2.48 MC/CUMM (3.8-5.5); Red Cell Distribution Width 15.9 % (9.3-17.3)
[2018-10-28] MEDS: SEVELAMER CARBONATE 800 MG TABLET PO SCH ×3 (08:11→16:41)
[2018-10-28] MEDS: amLODIPine 5 MG TABLET PO SCH (08:11)
[2018-10-28] MEDS: cloNIDine 0.1 MG TABLET PO SCH ×2 (08:12→21:39)
[2018-10-28] MEDS: PANTOPRAZOLE 40 MG TABLET PO SCH (08:12)
[2018-10-28] MEDS ORDERED: SODIUM CHLORIDE 0.9% 1,000 ML IV PRN (08:32)
[2018-10-28] MEDS: METOPROLOL SUCCINATE XL 25 MG TABLET PO SCH (21:38)
[2018-10-28] MEDS: ASPIRIN EC 81 MG TABLET PO SCH (21:39)
[2018-10-28] MEDS: ROSUVASTATIN 10 MG TABLET PO SCH (21:39)
[2018-10-29 05:42] LABS: Basophils # 0.1 10*3/uL (0.0-0.2); Basophils % 0.6 % (0.0-0.8); Eosinophils # 0.3 10*3/uL (0.0-0.87); Hematocrit 26.3 VOL% (42.0-52.0); Hemoglobin 8.3 GM/DL (14.0-18.0); Immature Granulocytes % 0.4 %; Immature Granulocytes Absolute 0.04 #; Lymphocytes % 11.1 % (21.2-54.2); Mean Corpuscular HGB Conc 31.6 GM/DL (32-36); Mean Corpuscular Volume 86.5 FL (87-102); Mean Platelet Volume 9.2 FL (9.6-12.0); Monocytes % 11.6 % (1.7-12.7); Neutrophils % 73.3 % (38.7-73.9); Platelet Count 201 T/CUMM (130-400); Red Blood Count 3.04 MC/CUMM (3.8-5.5); Red Cell Distribution Width 15.6 % (9.3-17.3); White Blood Count 8.9 T/CUMM (4-12)
[2018-10-29 06:07] LABS: Albumin 1.5 G/DL (3.4-5.0); Bilirubin,Total 1.3 MG/DL (0.2-1.0); Calcium 8.6 MG/DL (8.5-10.1); Osmolality,Calculated 278.1 MOS/KG (273-304)
[2018-10-29] MEDS: amLODIPine 5 MG TABLET PO SCH (08:12)
[2018-10-29] MEDS: cloNIDine 0.1 MG TABLET PO SCH (08:12)
[2018-10-29] MEDS: SEVELAMER CARBONATE 800 MG TABLET PO SCH ×3 (08:13→15:58)
[2018-10-29] MEDS: PANTOPRAZOLE 40 MG TABLET PO SCH (08:13)
[2018-10-29] MEDS: METOPROLOL SUCCINATE XL 25 MG TABLET PO SCH (21:14)
[2018-10-29] MEDS: ACETAMINOPHEN 325 MG TABLET PO PRN (21:14)
[2018-10-29] MEDS: ASPIRIN EC 81 MG TABLET PO SCH (21:15)
[2018-10-29] MEDS: ROSUVASTATIN 10 MG TABLET PO SCH (21:15)
[2018-10-29] MEDS ORDERED: KETOROLAC 30 MG/1 ML VIAL IV PRN (23:06)
[2018-10-30] MEDS: KETOROLAC 10 MG TABLET PO PRN (01:18)
[2018-10-30] MEDS ORDERED: TOBRAMYCIN INJ 160 MG in SODIUM CHLORIDE 0.9% 100 ML IV ONE (12:00)
[2018-10-30] MEDS: SEVELAMER CARBONATE 800 MG TABLET PO SCH ×3 (12:28→17:02)
[2018-10-30] MEDS: amLODIPine 5 MG TABLET PO SCH (12:34)
[2018-10-30] MEDS: PANTOPRAZOLE 40 MG TABLET PO SCH (12:34)
[2018-10-30] MEDS: ASPIRIN EC 81 MG TABLET PO SCH (20:44)
[2018-10-30] MEDS: ROSUVASTATIN 10 MG TABLET PO SCH (20:44)
[2018-10-30] MEDS: METOPROLOL SUCCINATE XL 25 MG TABLET PO SCH (20:44)
[2018-10-30] MEDS: cloNIDine 0.1 MG TABLET PO SCH (20:46)
[2018-10-31 04:34] LABS: Basophils # 0.1 10*3/uL (0.0-0.2); Basophils % 0.7 % (0.0-0.8); Eosinophils # 0.3 10*3/uL (0.0-0.87); Eosinophils % 3.1 % (0.00-10.9); Hematocrit 26.6 VOL% (42.0-52.0); Hemoglobin 8.5 GM/DL (14.0-18.0); Immature Granulocytes % 0.4 %; Immature Granulocytes Absolute 0.04 #; Lymphocytes # 1.1 10*3/uL (1.4-4.0); Lymphocytes % 10.6 % (21.2-54.2); Mean Corpuscular Volume 86.1 FL (87-102); Mean Platelet Volume 9.2 FL (9.6-12.0); Neutrophils % 72.2 % (38.7-73.9); Platelet Count 219 T/CUMM (130-400); Red Blood Count 3.09 MC/CUMM (3.8-5.5); White Blood Count 9.9 T/CUMM (4-12)
[2018-10-31 04:50] LABS: Albumin 1.8 G/DL (3.4-5.0); Calcium 8.9 MG/DL (8.5-10.1); Osmolality,Calculated 274.4 MOS/KG (273-304)
[2018-10-31] MEDS: KETOROLAC 10 MG TABLET PO PRN (06:02)
[2018-10-31] MEDS: amLODIPine 5 MG TABLET PO SCH (09:31)
[2018-10-31] MEDS: SEVELAMER CARBONATE 800 MG TABLET PO SCH ×3 (09:31→17:16)
[2018-10-31] MEDS: PANTOPRAZOLE 40 MG TABLET PO SCH (09:31)
[2018-10-31] MEDS: METOPROLOL SUCCINATE XL 25 MG TABLET PO SCH (21:49)
[2018-10-31] MEDS: ASPIRIN EC 81 MG TABLET PO SCH (21:50)
[2018-10-31] MEDS: ROSUVASTATIN 10 MG TABLET PO SCH (21:50)
[2018-10-31] MEDS: cloNIDine 0.1 MG TABLET PO SCH (21:50)
[2018-11-01] MEDS ORDERED: SODIUM CHLORIDE 0.9% 1,000 ML IV SCH (06:30)
[2018-11-01 08:24] LABS: Basophils % 0.3 % (0.0-0.8); Eosinophils # 0.3 10*3/uL (0.0-0.87); Eosinophils % 3.3 % (0.00-10.9); Hematocrit 25.6 VOL% (42.0-52.0); Hemoglobin 8.2 GM/DL (14.0-18.0); Immature Granulocytes % 0.7 %; Immature Granulocytes Absolute 0.06 #; Lymphocytes # 0.9 10*3/uL (1.4-4.0); Lymphocytes % 9.6 % (21.2-54.2); Mean Corpuscular Volume 85.6 FL (87-102); Mean Platelet Volume 8.6 FL (9.6-12.0); Monocytes % 12.3 % (1.7-12.7); Neutrophils % 73.8 % (38.7-73.9); Platelet Count 193 T/CUMM (130-400); Red Blood Count 2.99 MC/CUMM (3.8-5.5); Red Cell Distribution Width 14.8 % (9.3-17.3); White Blood Count 9.2 T/CUMM (4-12)
[2018-11-01 08:44] LABS: Calcium 9.2 MG/DL (8.5-10.1); Osmolality,Calculated 273.7 MOS/KG (273-304)
[2018-11-01] MEDS: SEVELAMER CARBONATE 800 MG TABLET PO SCH ×3 (09:28→17:57)
[2018-11-01] MEDS: amLODIPine 5 MG TABLET PO SCH (09:28)
[2018-11-01] MEDS: PANTOPRAZOLE 40 MG TABLET PO SCH (09:28)
[2018-11-01] MEDS ORDERED: fentaNYL 100 MCG/2 ML VIAL IV ONE (10:09)
[2018-11-01] MEDS ORDERED: DIAZEPAM 5 MG TABLET PO ONE (10:09)
[2018-11-01] MEDS ORDERED: MIDAZOLAM 2 MG/2 ML VIAL IV ONE (10:09)
[2018-11-01] MEDS ORDERED: TOBRAMYCIN INJ 160 MG in SODIUM CHLORIDE 0.9% 100 ML IV ONE (12:00)
[2018-11-01] MEDS: ASPIRIN EC 81 MG TABLET PO SCH (20:51)
[2018-11-01] MEDS: cloNIDine 0.1 MG TABLET PO SCH (20:51)
[2018-11-01] MEDS: METOPROLOL SUCCINATE XL 25 MG TABLET PO SCH (20:51)
[2018-11-01] MEDS: ROSUVASTATIN 10 MG TABLET PO SCH (20:51)
[2018-11-02] MEDS: KETOROLAC 10 MG TABLET PO PRN ×2 (04:03→20:31)
[2018-11-02 04:47] LABS: Basophils # 0.1 10*3/uL (0.0-0.2); Basophils % 0.6 % (0.0-0.8); Eosinophils # 0.4 10*3/uL (0.0-0.87); Eosinophils % 4.3 % (0.00-10.9); Hemoglobin 7.5 GM/DL (14.0-18.0); Immature Granulocytes % 0.6 %; Immature Granulocytes Absolute 0.05 #; Lymphocytes % 11.3 % (21.2-54.2); Mean Corpuscular HGB Conc 31.3 GM/DL (32-36); Mean Corpuscular Volume 86.3 FL (87-102); Mean Platelet Volume 9.3 FL (9.6-12.0); Monocytes % 11.1 % (1.7-12.7); Neutrophils % 72.1 % (38.7-73.9); Platelet Count 188 T/CUMM (130-400); Red Blood Count 2.78 MC/CUMM (3.8-5.5); Red Cell Distribution Width 14.7 % (9.3-17.3); White Blood Count 8.7 T/CUMM (4-12)
[2018-11-02 05:27] LABS: Calcium 8.7 MG/DL (8.5-10.1); Osmolality,Calculated 272.4 MOS/KG (273-304)
[2018-11-02] MEDS: SEVELAMER CARBONATE 800 MG TABLET PO SCH ×3 (09:36→17:00)
[2018-11-02] MEDS: PANTOPRAZOLE 40 MG TABLET PO SCH (09:36)
[2018-11-02] MEDS: amLODIPine 5 MG TABLET PO SCH (09:36)
[2018-11-02] MEDS ORDERED: ETOMIDATE 40 MG/20 ML VIAL IV ONE (12:40)
[2018-11-02] MEDS ORDERED: PROPOFOL 200 MG/20 ML VIAL IV ONE (12:40)
[2018-11-02] MEDS: ASPIRIN EC 81 MG TABLET PO SCH (20:29)
[2018-11-02] MEDS: METOPROLOL SUCCINATE XL 25 MG TABLET PO SCH (20:29)
[2018-11-02] MEDS: cloNIDine 0.1 MG TABLET PO SCH (20:29)
[2018-11-02] MEDS: ROSUVASTATIN 10 MG TABLET PO SCH (20:29)
[2018-11-03 04:37] LABS: Basophils % 0.4 % (0.0-0.8); Eosinophils # 0.5 10*3/uL (0.0-0.87); Eosinophils % 6.2 % (0.00-10.9); Hematocrit 23.6 VOL% (42.0-52.0); Hemoglobin 7.6 GM/DL (14.0-18.0); Immature Granulocytes % 0.4 %; Immature Granulocytes Absolute 0.03 #; Lymphocytes # 1.1 10*3/uL (1.4-4.0); Lymphocytes % 14.8 % (21.2-54.2); Mean Corpuscular HGB Conc 32.2 GM/DL (32-36); Mean Corpuscular Volume 85.8 FL (87-102); Mean Platelet Volume 9.5 FL (9.6-12.0); Monocytes % 11.5 % (1.7-12.7); Neutrophils % 66.7 % (38.7-73.9); Platelet Count 158 T/CUMM (130-400); Red Blood Count 2.75 MC/CUMM (3.8-5.5); Red Cell Distribution Width 14.7 % (9.3-17.3); White Blood Count 7.3 T/CUMM (4-12)
[2018-11-03 05:00] LABS: Calcium 8.9 MG/DL (8.5-10.1); Osmolality,Calculated 275.4 MOS/KG (273-304)
[2018-11-03] MEDS ORDERED: TOBRAMYCIN INJ 160 MG in SODIUM CHLORIDE 0.9% 100 ML IV ONE (11:00)
[2018-11-03] MEDS: amLODIPine 5 MG TABLET PO SCH (11:41)
[2018-11-03] MEDS: PANTOPRAZOLE 40 MG TABLET PO SCH (11:41)
[2018-11-03] MEDS: SEVELAMER CARBONATE 800 MG TABLET PO SCH ×3 (13:16→17:46)
[2018-11-03] MEDS: ASPIRIN EC 81 MG TABLET PO SCH (20:49)
[2018-11-03] MEDS: cloNIDine 0.1 MG TABLET PO SCH (20:49)
[2018-11-03] MEDS: ROSUVASTATIN 10 MG TABLET PO SCH (20:49)
[2018-11-03] MEDS: METOPROLOL SUCCINATE XL 25 MG TABLET PO SCH (20:49)
[2018-11-04] MEDS: SEVELAMER CARBONATE 800 MG TABLET PO SCH ×3 (09:04→17:40)
[2018-11-04] MEDS: amLODIPine 5 MG TABLET PO SCH (09:04)
[2018-11-04] MEDS: PANTOPRAZOLE 40 MG TABLET PO SCH (09:04)
[2018-11-04] MEDS: METOPROLOL SUCCINATE XL 25 MG TABLET PO SCH (21:27)
[2018-11-04] MEDS: ROSUVASTATIN 10 MG TABLET PO SCH (21:27)
[2018-11-04] MEDS: ASPIRIN EC 81 MG TABLET PO SCH (21:27)
[2018-11-04] MEDS: cloNIDine 0.1 MG TABLET PO SCH (21:27)
[2018-11-05] MEDS: KETOROLAC 30 MG/1 ML VIAL IM PRN ×2 (03:13→22:52)
[2018-11-05] MEDS: ACETAMINOPHEN 325 MG TABLET PO PRN ×2 (04:25→22:54)
[2018-11-05 06:25] LABS: Basophils # 0.1 10*3/uL (0.0-0.2); Basophils % 0.7 % (0.0-0.8); Eosinophils # 0.6 10*3/uL (0.0-0.87); Eosinophils % 7.5 % (0.00-10.9); Hematocrit 21.6 VOL% (42.0-52.0); Hemoglobin 6.7 GM/DL (14.0-18.0); Immature Granulocytes % 0.5 %; Immature Granulocytes Absolute 0.04 #; Lymphocytes % 13.4 % (21.2-54.2); Mean Corpuscular Volume 86.4 FL (87-102); Mean Platelet Volume 9.1 FL (9.6-12.0); Monocytes % 12.8 % (1.7-12.7); Neutrophils % 65.1 % (38.7-73.9); Platelet Count 162 T/CUMM (130-400); Red Cell Distribution Width 14.3 % (9.3-17.3); White Blood Count 7.3 T/CUMM (4-12)
[2018-11-05 06:36] LABS: Calcium 8.7 MG/DL (8.5-10.1); Osmolality,Calculated 276.4 MOS/KG (273-304)
[2018-11-05] MEDS: SEVELAMER CARBONATE 800 MG TABLET PO SCH ×3 (08:43→17:37)
[2018-11-05] MEDS: PANTOPRAZOLE 40 MG TABLET PO SCH (08:43)
[2018-11-05] MEDS: amLODIPine 5 MG TABLET PO SCH (08:43)
[2018-11-05] MEDS ORDERED: SODIUM CHLORIDE 0.9% 1,000 ML IV PRN (10:47)
[2018-11-05] MEDS: METOPROLOL SUCCINATE XL 25 MG TABLET PO SCH (21:20)
[2018-11-05] MEDS: ROSUVASTATIN 10 MG TABLET PO SCH (21:21)
[2018-11-05] MEDS: ASPIRIN EC 81 MG TABLET PO SCH (21:21)
[2018-11-05] MEDS: cloNIDine 0.1 MG TABLET PO SCH (21:21)
[2018-11-06] MEDS: SODIUM CHLORIDE 0.9% 1,000 ML IV SCH (08:00)
[2018-11-06] MEDS: amLODIPine 5 MG TABLET PO SCH (08:01)
[2018-11-06] MEDS: SEVELAMER CARBONATE 800 MG TABLET PO SCH ×3 (08:01→16:00)
[2018-11-06] MEDS: PANTOPRAZOLE 40 MG TABLET PO SCH (08:01)
[2018-11-06 09:13] LABS: Basophils # 0.1 10*3/uL (0.0-0.2); Basophils % 0.8 % (0.0-0.8); Eosinophils # 0.7 10*3/uL (0.0-0.87); Eosinophils % 10.7 % (0.00-10.9); Hematocrit 21.5 VOL% (42.0-52.0); Hemoglobin 6.7 GM/DL (14.0-18.0); Immature Granulocytes % 0.6 %; Immature Granulocytes Absolute 0.04 #; Lymphocytes # 0.7 10*3/uL (1.4-4.0); Mean Corpuscular HGB Conc 31.2 GM/DL (32-36); Mean Platelet Volume 9.6 FL (9.6-12.0); Monocytes % 9.4 % (1.7-12.7); Neutrophils % 66.5 % (38.7-73.9); Platelet Count 169 T/CUMM (130-400); Red Blood Count 2.47 MC/CUMM (3.8-5.5); Red Cell Distribution Width 14.4 % (9.3-17.3); White Blood Count 6.2 T/CUMM (4-12)
[2018-11-06 09:56] LABS: Albumin 1.8 G/DL (3.4-5.0); Bilirubin,Total 0.6 MG/DL (0.2-1.0); Calcium 8.6 MG/DL (8.5-10.1); Osmolality,Calculated 278.2 MOS/KG (273-304); Total Protein 6.4 G/DL (6.4-8.3)
[2018-11-06] MEDS ORDERED: TOBRAMYCIN INJ 160 MG in SODIUM CHLORIDE 0.9% 100 ML IV ONE (11:00)
[2018-11-06] MEDS: cloNIDine 0.1 MG TABLET PO SCH (20:47)
[2018-11-06] MEDS: ROSUVASTATIN 10 MG TABLET PO SCH (20:47)
[2018-11-06] MEDS: ASPIRIN EC 81 MG TABLET PO SCH (20:47)
[2018-11-06] MEDS: METOPROLOL SUCCINATE XL 25 MG TABLET PO SCH (20:47)
[2018-11-07 04:53] LABS: Basophils # 0.1 10*3/uL (0.0-0.2); Basophils % 0.6 % (0.0-0.8); Eosinophils # 0.6 10*3/uL (0.0-0.87); Eosinophils % 7.7 % (0.00-10.9); Hematocrit 26.4 VOL% (42.0-52.0); Hemoglobin 8.3 GM/DL (14.0-18.0); Immature Granulocytes Absolute 0.08 #; Lymphocytes # 0.9 10*3/uL (1.4-4.0); Lymphocytes % 11.6 % (21.2-54.2); Mean Corpuscular HGB Conc 31.4 GM/DL (32-36); Mean Corpuscular Volume 85.7 FL (87-102); Mean Platelet Volume 9.4 FL (9.6-12.0); Monocytes % 12.9 % (1.7-12.7); Neutrophils % 66.2 % (38.7-73.9); Platelet Count 168 T/CUMM (130-400); Red Blood Count 3.08 MC/CUMM (3.8-5.5); Red Cell Distribution Width 14.3 % (9.3-17.3); White Blood Count 7.8 T/CUMM (4-12)
[2018-11-07 05:20] LABS: Albumin 1.7 G/DL (3.4-5.0); Bilirubin,Total 0.7 MG/DL (0.2-1.0); Calcium 8.7 MG/DL (8.5-10.1); Osmolality,Calculated 279.1 MOS/KG (273-304); Total Protein 6.4 G/DL (6.4-8.3)
[2018-11-07] MEDS: PANTOPRAZOLE 40 MG TABLET PO SCH (08:05)
[2018-11-07] MEDS: SEVELAMER CARBONATE 800 MG TABLET PO SCH ×3 (08:05→16:13)
[2018-11-07] MEDS: amLODIPine 5 MG TABLET PO SCH (08:05)
[2018-11-07] MEDS: METOPROLOL SUCCINATE XL 25 MG TABLET PO SCH (20:51)
[2018-11-07] MEDS: cloNIDine 0.1 MG TABLET PO SCH (20:51)
[2018-11-07] MEDS: ASPIRIN EC 81 MG TABLET PO SCH (20:51)
[2018-11-07] MEDS: ROSUVASTATIN 10 MG TABLET PO SCH (20:51)
[2018-11-07] MEDS: ACETAMINOPHEN 325 MG TABLET PO PRN ×2 (20:51→23:56)
[2018-11-08] MEDS: MEPERIDINE 25 MG/1 ML VIAL IM PRN (04:52)
[2018-11-08 05:03] LABS: Basophils # 0.1 10*3/uL (0.0-0.2); Basophils % 0.7 % (0.0-0.8); Eosinophils # 0.7 10*3/uL (0.0-0.87); Eosinophils % 7.8 % (0.00-10.9); Immature Granulocytes % 0.3 %; Immature Granulocytes Absolute 0.03 #; Lymphocytes # 1.1 10*3/uL (1.4-4.0); Lymphocytes % 11.8 % (21.2-54.2); Mean Corpuscular Volume 85.9 FL (87-102); Mean Platelet Volume 9.4 FL (9.6-12.0); Monocytes % 11.9 % (1.7-12.7); Neutrophils % 67.5 % (38.7-73.9); Platelet Count 186 T/CUMM (130-400); Red Blood Count 2.91 MC/CUMM (3.8-5.5); Red Cell Distribution Width 14.4 % (9.3-17.3); White Blood Count 9.4 T/CUMM (4-12)
[2018-11-08 05:28] LABS: Albumin 1.8 G/DL (3.4-5.0); Bilirubin,Total 0.8 MG/DL (0.2-1.0); Osmolality,Calculated 281.1 MOS/KG (273-304); Total Protein 6.7 G/DL (6.4-8.3)
[2018-11-08] MEDS: PANTOPRAZOLE 40 MG TABLET PO SCH (08:30)
[2018-11-08] MEDS: SEVELAMER CARBONATE 800 MG TABLET PO SCH ×3 (08:30→17:10)
[2018-11-08] MEDS: amLODIPine 5 MG TABLET PO SCH (08:30)
[2018-11-08] MEDS ORDERED: TOBRAMYCIN INJ 160 MG in SODIUM CHLORIDE 0.9% 100 ML IV ONE (11:00)
[2018-11-08] MEDS: cloNIDine 0.1 MG TABLET PO SCH (20:41)
[2018-11-08] MEDS: ASPIRIN EC 81 MG TABLET PO SCH (20:41)
[2018-11-08] MEDS: ROSUVASTATIN 10 MG TABLET PO SCH (20:41)
[2018-11-08] MEDS: METOPROLOL SUCCINATE XL 25 MG TABLET PO SCH (20:41)
[2018-11-09 04:48] LABS: Basophils # 0.1 10*3/uL (0.0-0.2); Basophils % 1.1 % (0.0-0.8); Eosinophils # 0.5 10*3/uL (0.0-0.87); Eosinophils % 7.7 % (0.00-10.9); Hematocrit 26.9 VOL% (42.0-52.0); Hemoglobin 8.6 GM/DL (14.0-18.0); Immature Granulocytes % 0.4 %; Immature Granulocytes Absolute 0.03 #; Mean Corpuscular Volume 85.9 FL (87-102); Mean Platelet Volume 9.3 FL (9.6-12.0); Neutrophils % 65.8 % (38.7-73.9); Platelet Count 192 T/CUMM (130-400); Red Blood Count 3.13 MC/CUMM (3.8-5.5); Red Cell Distribution Width 14.5 % (9.3-17.3)
[2018-11-09 05:22] LABS: Albumin 1.8 G/DL (3.4-5.0); Bilirubin,Total 0.7 MG/DL (0.2-1.0); Calcium 8.8 MG/DL (8.5-10.1); Osmolality,Calculated 276.1 MOS/KG (273-304); Total Protein 6.7 G/DL (6.4-8.3)
[2018-11-09] MEDS ORDERED: HEPARIN/NACL 0.9% 2 UNITS/ML 500 ML IV ONE (07:04)
[2018-11-09] MEDS ORDERED: PHENYLEPHRINE DRIP 20 MG/250 ML PREMIX IV ONE (07:04)
[2018-11-09] MEDS ORDERED: LEVOFLOXACIN INJ 100 ML IV ONE (07:22)
[2018-11-09] MEDS ORDERED: SODIUM CHLORIDE 0.9% 1,000 ML IV SCH (07:30)
[2018-11-09] MEDS: amLODIPine 5 MG TABLET PO SCH (08:27)
[2018-11-09] MEDS: PANTOPRAZOLE 40 MG TABLET PO SCH (08:27)
[2018-11-09] MEDS: SEVELAMER CARBONATE 800 MG TABLET PO SCH ×3 (08:27→16:53)
[2018-11-09] MEDS ORDERED: DESMOPRESSIN INJ 30 MCG in SODIUM CHLORIDE 0.9% 50 ML IV ONE (09:00)
[2018-11-09 10:29] LABS: ABG Base Excess 0.1 MMOL/L (-2.5-2.5); ABG HCO3 24.5 MMOL/L (20-26); ABG Oxygen Saturation 99.4 % (95-100); ABG PCO2 46.6 MM HG (35-48); ABG PH 7.353 (7.35-7.45); ABG TCO2 23.8 MMOL/L (23-27); Glucose Heart Surgery 121 MG/DL (74-106); Hematocrit Heart Surgery 29.9 PERCENT (42-52); Hemoglobin Heart Surgery 9.6 G/DL (14.0-18.0); PCO2 Patient Temp Arterial 46.6 MMHG; PH Patient Temp Arterial 7.353; Patient Temperature 37 CELCIUS; Potassium Heart/CVR 5.5 MMOL/L (3.5-5.1); Sodium Heart/CVR 132 MMOL/L (135-145)
[2018-11-09] MEDS ORDERED: LEVOFLOXACIN INJ 500 MG in PREMIX 1 EACH IV ONE (10:32)
[2018-11-09] MEDS ORDERED: MIDAZOLAM 2 MG/2 ML VIAL ONE (12:20)
[2018-11-09] MEDS ORDERED: PROPOFOL 200 MG/20 ML VIAL IV ONE (12:20)
[2018-11-09] MEDS ORDERED: fentaNYL 100 MCG/2 ML VIAL ONE ×2 (12:20→12:21)
[2018-11-09] MEDS ORDERED: SEVOFLURANE 1 UNIT/15 MINUTE INH ONE (12:20)
[2018-11-09] MEDS ORDERED: BUPIVACAINE 0.5% 50 ML VIAL ONE (12:20)
[2018-11-09] MEDS ORDERED: ROCURONIUM 100 MG/10 ML VIAL IV ONE (12:21)
[2018-11-09] MEDS ORDERED: ONDANSETRON 4 MG/2 ML VIAL ONE ×2 (12:21)
[2018-11-09] MEDS ORDERED: SODIUM CHLORIDE 0.9% 1,000 ML IV ONE (12:21)
[2018-11-09] MEDS ORDERED: ePHEDrine 50 MG/ML AMP ONE (12:21)
[2018-11-09] MEDS ORDERED: NEOSTIGMINE 10 MG/10 ML VIAL ONE (12:21)
[2018-11-09] MEDS ORDERED: HYDROmorphone 2 MG/1 ML VIAL ONE (12:21)
[2018-11-09] MEDS ORDERED: EPINEPHrine 1 MG/ML VIAL ONE (12:21)
[2018-11-09] MEDS ORDERED: GLYCOPYRROLATE 0.4 MG/2 ML VIAL ONE (12:21)
[2018-11-09] MEDS ORDERED: PHENYLEPHRINE 1 MG/10 ML SYRINGE IV ONE (12:21)
[2018-11-09] MEDS ORDERED: ONDANSETRON 4 MG/2 ML VIAL IV PRN (12:30)
[2018-11-09] MEDS ORDERED: HYDROmorphone 2 MG/1 ML VIAL IV PRN (12:30)
[2018-11-09 12:31] LABS: Basophils % 0.4 % (0.0-0.8); Eosinophils # 0.2 10*3/uL (0.0-0.87); Eosinophils % 1.8 % (0.00-10.9); Hematocrit 29.6 VOL% (42.0-52.0); Hemoglobin 9.3 GM/DL (14.0-18.0); Immature Granulocytes % 0.6 %; Immature Granulocytes Absolute 0.06 #; Lymphocytes # 1.1 10*3/uL (1.4-4.0); Lymphocytes % 11.5 % (21.2-54.2); Mean Corpuscular HGB Conc 31.4 GM/DL (32-36); Mean Corpuscular Volume 87.3 FL (87-102); Mean Platelet Volume 8.4 FL (9.6-12.0); Monocytes % 8.5 % (1.7-12.7); Neutrophils % 77.2 % (38.7-73.9); Platelet Count 194 T/CUMM (130-400); Red Blood Count 3.39 MC/CUMM (3.8-5.5); Red Cell Distribution Width 14.6 % (9.3-17.3); White Blood Count 9.7 T/CUMM (4-12)
[2018-11-09 12:42] LABS: Calcium 8.5 MG/DL (8.5-10.1); Osmolality,Calculated 282.8 MOS/KG (273-304)
[2018-11-09] MEDS: MEPERIDINE 25 MG/1 ML VIAL IM PRN ×2 (13:56→20:41)
[2018-11-09] MEDS ORDERED: ALBUTEROL/IPRATROPIUM 3 ML NEB RESP TX PRN (14:58)
[2018-11-09] MEDS: ROSUVASTATIN 10 MG TABLET PO SCH (20:40)
[2018-11-09] MEDS: cloNIDine 0.1 MG TABLET PO SCH (20:41)
[2018-11-09] MEDS: METOPROLOL SUCCINATE XL 25 MG TABLET PO SCH (20:41)
[2018-11-09] MEDS: ASPIRIN EC 81 MG TABLET PO SCH (20:41)
[2018-11-10] MEDS: MEPERIDINE 25 MG/1 ML VIAL IM PRN ×3 (01:13→11:14)
[2018-11-10] MEDS: ONDANSETRON 4 MG/2 ML VIAL IV PRN ×3 (01:25→11:09)
[2018-11-10 04:17] LABS: Basophils % 0.5 % (0.0-0.8); Eosinophils # 0.1 10*3/uL (0.0-0.87); Eosinophils % 1.2 % (0.00-10.9); Hematocrit 19.6 VOL% (42.0-52.0); Immature Granulocytes % 0.8 %; Immature Granulocytes Absolute 0.06 #; Lymphocytes # 0.6 10*3/uL (1.4-4.0); Lymphocytes % 7.4 % (21.2-54.2); Mean Corpuscular HGB Conc 31.1 GM/DL (32-36); Mean Corpuscular Volume 87.9 FL (87-102); Mean Platelet Volume 9.5 FL (9.6-12.0); Monocytes % 6.6 % (1.7-12.7); Neutrophils % 83.5 % (38.7-73.9); Platelet Count 179 T/CUMM (130-400); Red Blood Count 2.23 MC/CUMM (3.8-5.5); Red Cell Distribution Width 14.8 % (9.3-17.3); White Blood Count 7.4 T/CUMM (4-12)
[2018-11-10 04:19] LABS: Hemoglobin 6.1 GM/DL (14.0-18.0)
[2018-11-10 04:54] LABS: Basophils # 0.1 10*3/uL (0.0-0.2); Basophils % 0.7 % (0.0-0.8); Eosinophils # 0.1 10*3/uL (0.0-0.87); Eosinophils % 1.3 % (0.00-10.9); Hematocrit 19.7 VOL% (42.0-52.0); Immature Granulocytes % 0.6 %; Immature Granulocytes Absolute 0.04 #; Lymphocytes # 0.6 10*3/uL (1.4-4.0); Lymphocytes % 8.8 % (21.2-54.2); Mean Corpuscular HGB Conc 31.5 GM/DL (32-36); Mean Corpuscular Volume 89.5 FL (87-102); Mean Platelet Volume 9.4 FL (9.6-12.0); Monocytes % 5.8 % (1.7-12.7); Neutrophils % 82.8 % (38.7-73.9); Platelet Count 178 T/CUMM (130-400); Red Cell Distribution Width 14.8 % (9.3-17.3)
[2018-11-10 05:06] LABS: Calcium 8.2 MG/DL (8.5-10.1)
[2018-11-10 05:25] LABS: Hemoglobin 6.2 GM/DL (14.0-18.0)
[2018-11-10] MEDS: amLODIPine 5 MG TABLET PO SCH (09:00)
[2018-11-10] MEDS: PANTOPRAZOLE 40 MG TABLET PO SCH (09:00)
[2018-11-10] MEDS: SEVELAMER CARBONATE 800 MG TABLET PO SCH ×3 (09:12→18:32)
[2018-11-10 14:45] LABS: INR 1.1; PT Patient Result 12.2 SECS
[2018-11-10 14:52] LABS: Partial Thromboplastin Time 32.1 SECS (0-40)
[2018-11-10 15:07] LABS: Hematocrit 23.4 VOL% (42.0-52.0)
[2018-11-10 15:08] LABS: Hemoglobin 7.5 GM/DL (14.0-18.0)
[2018-11-10] MEDS: TOBRAMYCIN INJ 160 MG in SODIUM CHLORIDE 0.9% 100 ML IV PRN (18:56)
[2018-11-10] MEDS: cloNIDine 0.1 MG TABLET PO SCH (21:07)
[2018-11-10] MEDS: METOPROLOL SUCCINATE XL 25 MG TABLET PO SCH (21:07)
[2018-11-10] MEDS: ROSUVASTATIN 10 MG TABLET PO SCH (21:07)
[2018-11-10] MEDS: ASPIRIN EC 81 MG TABLET PO SCH (21:07)
[2018-11-11 03:48] LABS: Basophils % 0.3 % (0.0-0.8); Eosinophils # 1.2 10*3/uL (0.0-0.87); Eosinophils % 13.4 % (0.00-10.9); Hematocrit 23.9 VOL% (42.0-52.0); Hemoglobin 7.5 GM/DL (14.0-18.0); Immature Granulocytes % 0.5 %; Immature Granulocytes Absolute 0.05 #; Lymphocytes # 1.1 10*3/uL (1.4-4.0); Mean Corpuscular HGB Conc 31.4 GM/DL (32-36); Mean Corpuscular Volume 90.2 FL (87-102); Mean Platelet Volume 9.1 FL (9.6-12.0); Monocytes % 8.8 % (1.7-12.7); Platelet Count 148 T/CUMM (130-400); Red Blood Count 2.65 MC/CUMM (3.8-5.5); White Blood Count 9.2 T/CUMM (4-12)
[2018-11-11 04:12] LABS: Calcium 8.3 MG/DL (8.5-10.1); Osmolality,Calculated 295.8 MOS/KG (273-304)
[2018-11-11 04:24] LABS: Eosinophils 9 % (0-10); Hypochromasia 1+; Lymphocytes 14 % (20-55); Platelet Estimate Normal; Segmented Neutrophils 70 % (50-85); Total Cells Counted 100
[2018-11-11 04:25] LABS: Reactive Lymphocytes Few
[2018-11-11] MEDS: amLODIPine 5 MG TABLET PO SCH (08:53)
[2018-11-11] MEDS: PANTOPRAZOLE 40 MG TABLET PO SCH (08:53)
[2018-11-11] MEDS: SEVELAMER CARBONATE 800 MG TABLET PO SCH ×3 (08:55→18:57)
[2018-11-11] MEDS: TOBRAMYCIN INJ 160 MG in SODIUM CHLORIDE 0.9% 100 ML IV PRN (15:29)
[2018-11-11] MEDS: METOPROLOL TARTRATE 25 MG TABLET PO SCH ×2 (15:51→20:15)
[2018-11-11] MEDS: ONDANSETRON 4 MG/2 ML VIAL IV PRN ×2 (18:52→23:51)
[2018-11-11] MEDS: MEPERIDINE 25 MG/1 ML VIAL IM PRN (18:52)
[2018-11-11] MEDS: ROSUVASTATIN 10 MG TABLET PO SCH (20:15)
[2018-11-11] MEDS: cloNIDine 0.1 MG TABLET PO SCH (20:15)
[2018-11-11] MEDS ORDERED: NOREPINEPHRINE 4 MG/4 ML VIAL IV ONE (23:07)
[2018-11-11 23:16] LABS: White Blood Count 15.2 T/CUMM (4-12)
[2018-11-11 23:17] LABS: Basophils % 0.1 % (0.0-0.8); Eosinophils # 1.3 10*3/uL (0.0-0.87); Eosinophils % 8.3 % (0.00-10.9); Hematocrit 18.5 VOL% (42.0-52.0); Immature Granulocytes % 0.7 %; Immature Granulocytes Absolute 0.11 #; Lymphocytes # 2.7 10*3/uL (1.4-4.0); Lymphocytes % 17.9 % (21.2-54.2); Mean Corpuscular HGB Conc 31.9 GM/DL (32-36); Mean Corpuscular Volume 88.1 FL (87-102); Mean Platelet Volume 9.2 FL (9.6-12.0); Platelet Count 180 T/CUMM (130-400)
[2018-11-11 23:18] LABS: Hemoglobin 5.9 GM/DL (14.0-18.0)
[2018-11-11] MEDS ORDERED: SODIUM CHLORIDE 0.9% 1,000 ML IV PRN (23:24)
[2018-11-11] MEDS ORDERED: NOREPINEPHRINE 16 MG in SODIUM CHLORIDE 0.9% 234 ML IV PRN (23:27)
[2018-11-12] MEDS: ONDANSETRON 4 MG/2 ML VIAL IV PRN (04:01)
[2018-11-12] MEDS: MEPERIDINE 25 MG/1 ML VIAL IM PRN (04:01)
[2018-11-12] MEDS ORDERED: SODIUM CHLORIDE 0.9% 1,000 ML IV PRN ×3 (08:24→11:03)
[2018-11-12 08:50] LABS: Basophils % 0.2 % (0.0-0.8); Eosinophils # 0.3 10*3/uL (0.0-0.87); Eosinophils % 2.2 % (0.00-10.9); Immature Granulocytes % 0.7 %; Immature Granulocytes Absolute 0.08 #; Lymphocytes # 0.9 10*3/uL (1.4-4.0); Lymphocytes % 7.9 % (21.2-54.2); Mean Corpuscular HGB Conc 32.4 GM/DL (32-36); Mean Corpuscular Volume 88.7 FL (87-102); Mean Platelet Volume 9.3 FL (9.6-12.0); Monocytes % 8.1 % (1.7-12.7); Neutrophils % 80.9 % (38.7-73.9); Platelet Count 122 T/CUMM (130-400); Red Blood Count 1.95 MC/CUMM (3.8-5.5); Red Cell Distribution Width 14.5 % (9.3-17.3); White Blood Count 11.3 T/CUMM (4-12)
[2018-11-12] MEDS: FAMOTIDINE 20 MG/2 ML VIAL IV SCH (08:57)
[2018-11-12 08:58] LABS: Hematocrit 17.3 VOL% (42.0-52.0); Hemoglobin 5.6 GM/DL (14.0-18.0)
[2018-11-12 09:03] LABS: INR 1.2; PT Patient Result 13.4 SECS; Partial Thromboplastin Time 29.8 SECS (0-40)
[2018-11-12] MEDS: METOPROLOL TARTRATE 25 MG TABLET PO SCH (09:05)
[2018-11-12] MEDS: amLODIPine 5 MG TABLET PO SCH (09:07)
[2018-11-12] MEDS ORDERED: DESMOPRESSIN 4 MCG/1 ML AMP IV ONE (09:14)
[2018-11-12 09:15] LABS: Albumin 1.3 G/DL (3.4-5.0); Bilirubin,Total 0.5 MG/DL (0.2-1.0); Calcium 7.7 MG/DL (8.5-10.1); Osmolality,Calculated 308.7 MOS/KG (273-304); Total Protein 4.4 G/DL (6.4-8.3)
[2018-11-12] MEDS ORDERED: DESMOPRESSIN INJ 20 MCG in SODIUM CHLORIDE 0.9% 50 ML IV ONE (10:00)
[2018-11-12] MEDS: SEVELAMER CARBONATE 800 MG TABLET PO SCH ×3 (10:14→21:51)
[2018-11-12] MEDS: PANTOPRAZOLE 40 MG VIAL IV SCH ×2 (10:30→21:51)
[2018-11-12] MEDS ORDERED: SUGAMMADEX 200 MG/2 ML VIAL IV ONE (12:07)
[2018-11-12 12:34] LABS: Folate 3.1 NG/ML (5.4-24.0)
[2018-11-12] MEDS ORDERED: PHENYLEPHRINE DRIP 20 MG/250 ML PREMIX IV ONE (12:42)
[2018-11-12] MEDS ORDERED: ONDANSETRON 4 MG/2 ML VIAL ONE (13:34)
[2018-11-12] MEDS ORDERED: SEVOFLURANE 1 UNIT/15 MINUTE INH ONE (13:34)
[2018-11-12] MEDS ORDERED: PROPOFOL 200 MG/20 ML VIAL IV ONE (13:34)
[2018-11-12] MEDS ORDERED: ETOMIDATE 40 MG/20 ML VIAL IV ONE (13:35)
[2018-11-12] MEDS ORDERED: ROCURONIUM 100 MG/10 ML VIAL IV ONE (13:35)
[2018-11-12] MEDS ORDERED: PHENYLEPHRINE 1 MG/10 ML SYRINGE IV ONE (13:35)
[2018-11-12] MEDS: ROSUVASTATIN 10 MG TABLET PO SCH (21:51)
[2018-11-12 23:48] LABS: Basophils % 0.3 % (0.0-0.8); Eosinophils # 1.1 10*3/uL (0.0-0.87); Eosinophils % 10.3 % (0.00-10.9); Hematocrit 18.9 VOL% (42.0-52.0); Immature Granulocytes % 0.5 %; Immature Granulocytes Absolute 0.05 #; Lymphocytes % 9.4 % (21.2-54.2); Mean Corpuscular HGB Conc 32.3 GM/DL (32-36); Mean Corpuscular Volume 88.7 FL (87-102); Mean Platelet Volume 9.1 FL (9.6-12.0); Monocytes % 6.8 % (1.7-12.7); Neutrophils % 72.7 % (38.7-73.9); Platelet Count 127 T/CUMM (130-400); Red Blood Count 2.13 MC/CUMM (3.8-5.5); Red Cell Distribution Width 15.1 % (9.3-17.3); White Blood Count 10.6 T/CUMM (4-12)
[2018-11-12 23:50] LABS: Hemoglobin 6.1 GM/DL (14.0-18.0)
[2018-11-13] MEDS ORDERED: SODIUM POLYSTYRENE SULFATE 15 GM/60 ML BOTTLE PO STA (00:17)
[2018-11-13] MEDS: SEVELAMER CARBONATE 800 MG TABLET PO SCH ×3 (08:00→17:10)
[2018-11-13 08:13] LABS: Basophils % 0.3 % (0.0-0.8); Eosinophils # 1.2 10*3/uL (0.0-0.87); Hematocrit 20.1 VOL% (42.0-52.0); Immature Granulocytes % 0.8 %; Immature Granulocytes Absolute 0.07 #; Lymphocytes # 1.1 10*3/uL (1.4-4.0); Lymphocytes % 11.7 % (21.2-54.2); Mean Corpuscular HGB Conc 31.8 GM/DL (32-36); Mean Corpuscular Volume 90.5 FL (87-102); Mean Platelet Volume 8.9 FL (9.6-12.0); Monocytes % 7.1 % (1.7-12.7); Neutrophils % 67.1 % (38.7-73.9); Platelet Count 112 T/CUMM (130-400); Red Blood Count 2.22 MC/CUMM (3.8-5.5)
[2018-11-13 08:22] LABS: Bilirubin,Total 0.5 MG/DL (0.2-1.0); Calcium 8.7 MG/DL (8.5-10.1); Osmolality,Calculated 320.7 MOS/KG (273-304); Total Protein 5.4 G/DL (6.4-8.3)
[2018-11-13 08:26] LABS: Hemoglobin 6.4 GM/DL (14.0-18.0)
[2018-11-13] MEDS ORDERED: SODIUM CHLORIDE 0.9% 1,000 ML IV PRN (08:38)
[2018-11-13 09:14] LABS: Eosinophils 16 % (0-10); Lymphocytes 10 % (20-55); Segmented Neutrophils 70 % (50-85); Total Cells Counted 100
[2018-11-13 09:15] LABS: Microcytosis 1+; Polychromasia Slight
[2018-11-13 09:16] LABS: Platelet Estimate Decreased
[2018-11-13] MEDS: PANTOPRAZOLE 40 MG VIAL IV SCH ×2 (11:57→20:15)
[2018-11-13] MEDS: FAMOTIDINE 20 MG/2 ML VIAL IV SCH (11:57)
[2018-11-13] MEDS ORDERED: TOBRAMYCIN INJ 160 MG in SODIUM CHLORIDE 0.9% 100 ML IV ONE (12:00)
[2018-11-13 15:30] LABS: Basophils % 0.4 % (0.0-0.8); Eosinophils % 14.4 % (0.00-10.9); Hematocrit 22.2 VOL% (42.0-52.0); Hemoglobin 7.7 GM/DL (14.0-18.0); Immature Granulocytes % 0.6 %; Immature Granulocytes Absolute 0.04 #; Lymphocytes # 0.8 10*3/uL (1.4-4.0); Lymphocytes % 11.5 % (21.2-54.2); Mean Corpuscular HGB Conc 34.7 GM/DL (32-36); Mean Platelet Volume 8.5 FL (9.6-12.0); Neutrophils % 67.1 % (38.7-73.9); Platelet Count 107 T/CUMM (130-400); Red Blood Count 2.58 MC/CUMM (3.8-5.5); Red Cell Distribution Width 14.4 % (9.3-17.3); White Blood Count 7.2 T/CUMM (4-12)
[2018-11-13 16:14] LABS: Eosinophils 13 % (0-10); Lymphocytes 12 % (20-55); Platelet Estimate Decreased; Segmented Neutrophils 67 % (50-85); Total Cells Counted 100
[2018-11-13 16:16] LABS: Hypochromasia 1+; Macrocytosis Slight; Microcytosis 1+
[2018-11-13] MEDS: METOPROLOL TARTRATE 25 MG TABLET PO SCH (20:15)
[2018-11-13] MEDS: ROSUVASTATIN 10 MG TABLET PO SCH (20:15)
[2018-11-14 04:50] LABS: Basophils % 0.3 % (0.0-0.8); Eosinophils # 0.9 10*3/uL (0.0-0.87); Hematocrit 22.5 VOL% (42.0-52.0); Hemoglobin 7.4 GM/DL (14.0-18.0); Immature Granulocytes % 0.3 %; Immature Granulocytes Absolute 0.02 #; Lymphocytes # 0.8 10*3/uL (1.4-4.0); Lymphocytes % 13.3 % (21.2-54.2); Mean Corpuscular HGB Conc 32.9 GM/DL (32-36); Mean Corpuscular Volume 88.6 FL (87-102); Mean Platelet Volume 8.8 FL (9.6-12.0); Monocytes % 8.1 % (1.7-12.7); Platelet Count 93 T/CUMM (130-400); Red Blood Count 2.54 MC/CUMM (3.8-5.5); Red Cell Distribution Width 14.4 % (9.3-17.3); White Blood Count 6.2 T/CUMM (4-12)
[2018-11-14 05:13] LABS: Calcium 8.4 MG/DL (8.5-10.1); Osmolality,Calculated 287.7 MOS/KG (273-304)
[2018-11-14 06:37] LABS: Eosinophils 6 % (0-10); Hypochromasia 1+; Lymphocytes 11 % (20-55); Metamyelocytes 1 %; Microcytosis 1+; Platelet Estimate Decreased; Segmented Neutrophils 79 % (50-85); Total Cells Counted 100
[2018-11-14] MEDS: FAMOTIDINE 20 MG/2 ML VIAL IV SCH (09:02)
[2018-11-14] MEDS: PANTOPRAZOLE 40 MG VIAL IV SCH ×2 (09:03→21:24)
[2018-11-14] MEDS: SEVELAMER CARBONATE 800 MG TABLET PO SCH ×3 (09:05→18:23)
[2018-11-14] MEDS: METOPROLOL TARTRATE 25 MG TABLET PO SCH ×2 (09:05→21:15)
[2018-11-14] MEDS: amLODIPine 5 MG TABLET PO SCH (11:27)
[2018-11-14 16:50] LABS: Basophils % 0.3 % (0.0-0.8); Eosinophils # 0.9 10*3/uL (0.0-0.87); Eosinophils % 12.1 % (0.00-10.9); Hemoglobin 7.6 GM/DL (14.0-18.0); Immature Granulocytes % 0.4 %; Immature Granulocytes Absolute 0.03 #; Lymphocytes # 0.8 10*3/uL (1.4-4.0); Lymphocytes % 11.6 % (21.2-54.2); Mean Corpuscular Volume 88.8 FL (87-102); Mean Platelet Volume 8.8 FL (9.6-12.0); Monocytes % 9.3 % (1.7-12.7); Neutrophils % 66.3 % (38.7-73.9); Platelet Count 110 T/CUMM (130-400); Red Blood Count 2.59 MC/CUMM (3.8-5.5); Red Cell Distribution Width 14.4 % (9.3-17.3)
[2018-11-14 17:21] LABS: Eosinophils 11 % (0-10); Lymphocytes 12 % (20-55); Platelet Estimate Adequate; Segmented Neutrophils 75 % (50-85); Total Cells Counted 100
[2018-11-14] MEDS: hydrALAZINE 25 MG TABLET PO PRN (18:23)
[2018-11-14] MEDS: ROSUVASTATIN 10 MG TABLET PO SCH (21:15)
[2018-11-14] MEDS: cloNIDine 0.1 MG TABLET PO SCH (21:24)
[2018-11-15 04:37] LABS: Basophils % 0.3 % (0.0-0.8); Eosinophils # 0.9 10*3/uL (0.0-0.87); Eosinophils % 12.6 % (0.00-10.9); Hematocrit 24.1 VOL% (42.0-52.0); Hemoglobin 7.9 GM/DL (14.0-18.0); Immature Granulocytes % 0.6 %; Immature Granulocytes Absolute 0.04 #; Lymphocytes # 0.7 10*3/uL (1.4-4.0); Lymphocytes % 10.4 % (21.2-54.2); Mean Corpuscular HGB Conc 32.8 GM/DL (32-36); Mean Corpuscular Volume 89.3 FL (87-102); Mean Platelet Volume 8.9 FL (9.6-12.0); Monocytes % 9.8 % (1.7-12.7); Neutrophils % 66.3 % (38.7-73.9); Platelet Count 120 T/CUMM (130-400); Red Cell Distribution Width 14.1 % (9.3-17.3); White Blood Count 6.8 T/CUMM (4-12)
[2018-11-15 05:37] LABS: Eosinophils 15 % (0-10); Hypochromasia 2+; Lymphocytes 13 % (20-55); Platelet Estimate Decreased; Segmented Neutrophils 65 % (50-85); Total Cells Counted 100
[2018-11-15] MEDS: SEVELAMER CARBONATE 800 MG TABLET PO SCH ×3 (09:29→18:27)
[2018-11-15] MEDS: METOPROLOL TARTRATE 25 MG TABLET PO SCH ×2 (09:29→20:24)
[2018-11-15] MEDS: amLODIPine 5 MG TABLET PO SCH (09:32)
[2018-11-15] MEDS: PANTOPRAZOLE 40 MG VIAL IV SCH ×2 (09:33→20:24)
[2018-11-15] MEDS ORDERED: TOBRAMYCIN INJ 80 MG in SODIUM CHLORIDE 0.9% 100 ML IV PRN (11:30)
[2018-11-15] MEDS ORDERED: TOBRAMYCIN INJ 80 MG in SODIUM CHLORIDE 0.9% 100 ML IV ONE (12:00)
[2018-11-15] MEDS: hydrALAZINE 25 MG TABLET PO PRN (12:41)
[2018-11-15] MEDS ORDERED: hydrALAZINE 20 MG/1 ML VIAL IV ONE (16:28)
[2018-11-15 16:42] LABS: Basophils % 0.4 % (0.0-0.8); Eosinophils % 13.9 % (0.00-10.9); Hematocrit 24.9 VOL% (42.0-52.0); Immature Granulocytes % 0.4 %; Immature Granulocytes Absolute 0.03 #; Lymphocytes # 0.8 10*3/uL (1.4-4.0); Lymphocytes % 10.5 % (21.2-54.2); Mean Corpuscular HGB Conc 32.1 GM/DL (32-36); Mean Corpuscular Volume 91.5 FL (87-102); Mean Platelet Volume 8.6 FL (9.6-12.0); Monocytes % 10.1 % (1.7-12.7); Neutrophils % 64.7 % (38.7-73.9); Platelet Count 118 T/CUMM (130-400); Red Blood Count 2.72 MC/CUMM (3.8-5.5); Red Cell Distribution Width 14.1 % (9.3-17.3); White Blood Count 7.4 T/CUMM (4-12)
[2018-11-15 17:08] LABS: Eosinophils 14 % (0-10); Hypochromasia Slight; Lymphocytes 7 % (20-55); Platelet Estimate Adequate; Segmented Neutrophils 73 % (50-85); Total Cells Counted 100
[2018-11-15 17:09] LABS: Macrocytosis Slight
[2018-11-15] MEDS: ROSUVASTATIN 10 MG TABLET PO SCH (20:24)
[2018-11-15] MEDS: cloNIDine 0.1 MG TABLET PO SCH (20:25)
[2018-11-16 06:05] LABS: Calcium 8.7 MG/DL (8.5-10.1); Osmolality,Calculated 285.7 MOS/KG (273-304)
[2018-11-16] MEDS: METOPROLOL TARTRATE 25 MG TABLET PO SCH ×2 (08:11→20:24)
[2018-11-16] MEDS: SEVELAMER CARBONATE 800 MG TABLET PO SCH ×3 (08:11→16:50)
[2018-11-16] MEDS: amLODIPine 5 MG TABLET PO SCH (08:11)
[2018-11-16] MEDS: PANTOPRAZOLE 40 MG VIAL IV SCH (08:12)
[2018-11-16] MEDS: cloNIDine 0.1 MG TABLET PO SCH (20:24)
[2018-11-16] MEDS: PANTOPRAZOLE 40 MG TABLET PO SCH (20:25)
[2018-11-16] MEDS: ROSUVASTATIN 10 MG TABLET PO SCH (20:25)
[2018-11-17 07:42] LABS: Hematocrit 24.6 VOL% (42.0-52.0); Hemoglobin 7.9 GM/DL (14.0-18.0)
[2018-11-17] MEDS ORDERED: EPOETIN ALFA 2,000 UNIT/1 ML VIAL IV PRN (08:25)
[2018-11-17] MEDS: PANTOPRAZOLE 40 MG TABLET PO SCH (08:33)
[2018-11-17] MEDS: amLODIPine 5 MG TABLET PO SCH (08:33)
[2018-11-17] MEDS: SEVELAMER CARBONATE 800 MG TABLET PO SCH ×2 (08:33→11:55)
[2018-11-17] MEDS: METOPROLOL TARTRATE 25 MG TABLET PO SCH (08:33)
[2018-11-17 14:27] LABS: Basophils % 0.5 % (0.0-0.8); Eosinophils # 1.1 10*3/uL (0.0-0.87); Eosinophils % 14.7 % (0.00-10.9); Hematocrit 24.4 VOL% (42.0-52.0); Hemoglobin 8.1 GM/DL (14.0-18.0); Immature Granulocytes % 0.7 %; Immature Granulocytes Absolute 0.05 #; Lymphocytes % 12.7 % (21.2-54.2); Mean Corpuscular HGB Conc 33.2 GM/DL (32-36); Mean Corpuscular Volume 88.7 FL (87-102); Mean Platelet Volume 8.5 FL (9.6-12.0); Monocytes % 12.5 % (1.7-12.7); Neutrophils % 58.9 % (38.7-73.9); Platelet Count 135 T/CUMM (130-400); Red Blood Count 2.75 MC/CUMM (3.8-5.5); Red Cell Distribution Width 13.9 % (9.3-17.3); White Blood Count 7.5 T/CUMM (4-12)
[2018-11-17] MEDS ORDERED: TOBRAMYCIN INJ 80 MG in SODIUM CHLORIDE 0.9% 100 ML IV ONE (15:00)
[2018-11-17 15:03] LABS: Eosinophils 10 % (0-10); Lymphocytes 18 % (20-55); Microcytosis Slight; Platelet Estimate Adequate; Segmented Neutrophils 70 % (50-85); Total Cells Counted 100
[2018-11-17 16:47] VITALS: BP 131/73
[2018-11-18] MEDS ORDERED: ASPIRIN EC 81 MG TABLET PO SCH (09:00)
== END 2018-11-17 16:51 | DRG 252 ==
LOC: N.ED 13:40 → SUATTDRO 16:24 → N.EDINP 16:24 → N.5E 17:33 → N.CC 11-09 13:00 → N.ICU 11-10 16:31 → N.5E 11-15 19:13
PROVIDERS: ADMIT Internal Medicine; ATTEND Hospitalist

== ENCOUNTER 2018-12-19 09:59 | Inpatient (IN) ==
[2018-12-19 11:19] LABS: Hematocrit 21.5 VOL% (42.0-52.0); Hemoglobin 6.7 GM/DL (14.0-18.0); Lymphocytes % 23.1 % (21.2-54.2); Mean Corpuscular HGB Conc 31.2 GM/DL (32-36); Mean Corpuscular Volume 87.4 FL (87-102); Mean Platelet Volume 9.6 FL (9.6-12.0); Neutrophils % 59.4 % (38.7-73.9); Platelet Count 165 T/CUMM (130-400); Red Blood Count 2.46 MC/CUMM (3.8-5.5); Red Cell Distribution Width 14.4 % (9.3-17.3); White Blood Count 4.7 T/CUMM (4-12)
[2018-12-19 11:20] LABS: Basophils % 0.6 % (0.0-0.8); Eosinophils # 0.1 10*3/uL (0.0-0.87); Eosinophils % 2.1 % (0.00-10.9); Immature Granulocytes % 0.4 %; Immature Granulocytes Absolute 0.02 #; Lymphocytes # 1.1 10*3/uL (1.4-4.0); Monocytes % 14.4 % (1.7-12.7)
[2018-12-19] MEDS ORDERED: cloNIDine 0.1 MG TABLET PO STA (11:32)
[2018-12-19 11:33] LABS: Calcium 9.1 MG/DL (8.5-10.1); Osmolality,Calculated 276.7 MOS/KG (273-304)
[2018-12-19] MEDS ORDERED: cloNIDine 0.1 MG TABLET ONE (11:33)
[2018-12-19] MEDS ORDERED: cefTAZidime 2,000 MG in SYRINGE 1 EACH IV ONE (11:45)
[2018-12-19] MEDS ORDERED: MAGNESIUM HYDROXIDE SUSP 30 ML UDCUP PO PRN (13:15)
[2018-12-19] MEDS ORDERED: oxyCODONE IR 5 MG TABLET PO PRN (13:15)
[2018-12-19] MEDS ORDERED: ONDANSETRON 4 MG/2 ML VIAL IV PRN ×2 (13:15→13:59)
[2018-12-19] MEDS ORDERED: diphenhydrAMINE CAP 25 MG CAPSULE PO PRN (13:15)
[2018-12-19] MEDS ORDERED: KETOROLAC 15 MG/1 ML VIAL IV PRN (13:15)
[2018-12-19] MEDS ORDERED: hydrALAZINE 20 MG/1 ML VIAL ONE (13:24)
[2018-12-19] MEDS ORDERED: hydrALAZINE 20 MG/1 ML VIAL IV ONE ×2 (13:25→13:42)
[2018-12-19] MEDS ORDERED: ETOMIDATE 40 MG/20 ML VIAL IV ONE (13:31)
[2018-12-19] MEDS ORDERED: SODIUM CHLORIDE 0.9% 500 ML IV ONE (13:31)
[2018-12-19] MEDS ORDERED: MIDAZOLAM 2 MG/2 ML VIAL ONE (13:31)
[2018-12-19] MEDS ORDERED: fentaNYL 100 MCG/2 ML VIAL ONE (13:31)
[2018-12-19] MEDS ORDERED: GLYCOPYRROLATE 0.4 MG/2 ML VIAL ONE (13:31)
[2018-12-19] MEDS ORDERED: ROCURONIUM 100 MG/10 ML VIAL IV ONE (13:31)
[2018-12-19] MEDS ORDERED: NEOSTIGMINE 10 MG/10 ML VIAL ONE (13:31)
[2018-12-19] MEDS ORDERED: DESFLURANE 1 UNIT/15 MINUTE INH ONE (13:31)
[2018-12-19] MEDS ORDERED: ONDANSETRON 4 MG/2 ML VIAL ONE (13:56)
[2018-12-19] MEDS ORDERED: HYDROmorphone 2 MG/1 ML VIAL ONE (13:56)
[2018-12-19] MEDS ORDERED: HYDROmorphone 2 MG/1 ML VIAL IV PRN (13:59)
[2018-12-19] MEDS ORDERED: EPOETIN ALFA 10,000 UNIT/1 ML VIAL IV PRN (16:57)
[2018-12-19] MEDS: amLODIPine 5 MG TABLET PO SCH (17:21)
[2018-12-19] MEDS: cloNIDine 0.1 MG TABLET PO SCH ×2 (17:21→20:51)
[2018-12-19] MEDS: SEVELAMER CARBONATE 800 MG TABLET PO SCH (17:21)
[2018-12-19] MEDS: HYDROmorphone 2 MG/1 ML VIAL IV PRN (17:28)
[2018-12-19] MEDS: ROSUVASTATIN 10 MG TABLET PO SCH (20:51)
[2018-12-19] MEDS: ASPIRIN EC 81 MG TABLET PO SCH (20:51)
[2018-12-19] MEDS: PANTOPRAZOLE 40 MG TABLET PO SCH (20:51)
[2018-12-19] MEDS: METOPROLOL TARTRATE 25 MG TABLET PO SCH (20:51)
[2018-12-19] MEDS: CIPROFLOXACIN 500 MG TABLET PO SCH (20:51)
[2018-12-19] MEDS: hydrALAZINE 20 MG/1 ML VIAL IV PRN (23:50)
[2018-12-20] MEDS: HYDROmorphone 2 MG/1 ML VIAL IV PRN (00:06)
[2018-12-20 05:04] LABS: Basophils % 0.4 % (0.0-0.8); Eosinophils # 0.1 10*3/uL (0.0-0.87); Eosinophils % 1.3 % (0.00-10.9); Hematocrit 23.1 VOL% (42.0-52.0); Hemoglobin 7.2 GM/DL (14.0-18.0); Immature Granulocytes % 0.3 %; Immature Granulocytes Absolute 0.02 #; Lymphocytes # 0.7 10*3/uL (1.4-4.0); Mean Corpuscular HGB Conc 31.2 GM/DL (32-36); Mean Corpuscular Volume 87.8 FL (87-102); Mean Platelet Volume 9.4 FL (9.6-12.0); Monocytes % 12.4 % (1.7-12.7); Neutrophils % 75.6 % (38.7-73.9); Platelet Count 192 T/CUMM (130-400); Red Blood Count 2.63 MC/CUMM (3.8-5.5); Red Cell Distribution Width 14.9 % (9.3-17.3); White Blood Count 6.7 T/CUMM (4-12)
[2018-12-20 05:37] LABS: Calcium 8.8 MG/DL (8.5-10.1); Osmolality,Calculated 279.7 MOS/KG (273-304)
[2018-12-20] MEDS: SEVELAMER CARBONATE 800 MG TABLET PO SCH ×3 (09:02→17:37)
[2018-12-20] MEDS: METOPROLOL TARTRATE 25 MG TABLET PO SCH ×2 (09:03→21:29)
[2018-12-20] MEDS ORDERED: SODIUM CHLORIDE 0.9% 1,000 ML IV PRN (09:03)
[2018-12-20] MEDS: cloNIDine 0.1 MG TABLET PO SCH ×3 (09:03→21:30)
[2018-12-20] MEDS: ACETAMINOPHEN 325 MG TABLET PO PRN (09:03)
[2018-12-20] MEDS: CIPROFLOXACIN 500 MG TABLET PO SCH (09:03)
[2018-12-20] MEDS: PANTOPRAZOLE 40 MG TABLET PO SCH ×2 (09:03→21:30)
[2018-12-20] MEDS: amLODIPine 5 MG TABLET PO SCH (09:03)
[2018-12-20] MEDS: oxyCODONE IR 5 MG TABLET PO PRN (09:07)
[2018-12-20] MEDS ORDERED: TOBRAMYCIN IV ONE (10:00)
[2018-12-20] MEDS ORDERED: SODIUM CHLORIDE 0.9% IV ONE (10:00)
[2018-12-20] MEDS ORDERED: HEPARIN 10,000 UNIT/10 ML VIAL IV PRN (11:06)
[2018-12-20] MEDS ORDERED: amLODIPine 5 MG TABLET PO SCH (16:42)
[2018-12-20 19:16] LABS: Hematocrit 26.5 VOL% (42.0-52.0); Hemoglobin 8.2 GM/DL (14.0-18.0)
[2018-12-20] MEDS: ROSUVASTATIN 10 MG TABLET PO SCH (21:29)
[2018-12-20] MEDS: ASPIRIN EC 81 MG TABLET PO SCH (21:30)
[2018-12-21 05:46] LABS: Basophils % 0.6 % (0.0-0.8); Eosinophils # 0.2 10*3/uL (0.0-0.87); Eosinophils % 3.9 % (0.00-10.9); Hematocrit 24.3 VOL% (42.0-52.0); Hemoglobin 7.4 GM/DL (14.0-18.0); Immature Granulocytes % 0.4 %; Immature Granulocytes Absolute 0.02 #; Lymphocytes # 1.2 10*3/uL (1.4-4.0); Lymphocytes % 21.4 % (21.2-54.2); Mean Corpuscular HGB Conc 30.5 GM/DL (32-36); Mean Corpuscular Volume 89.3 FL (87-102); Mean Platelet Volume 9.6 FL (9.6-12.0); Monocytes % 12.5 % (1.7-12.7); Neutrophils % 61.2 % (38.7-73.9); Platelet Count 156 T/CUMM (130-400); Red Blood Count 2.72 MC/CUMM (3.8-5.5); Red Cell Distribution Width 14.7 % (9.3-17.3); White Blood Count 5.4 T/CUMM (4-12)
[2018-12-21 06:27] LABS: Calcium 8.9 MG/DL (8.5-10.1)
[2018-12-21] MEDS: METOPROLOL TARTRATE 25 MG TABLET PO SCH ×3 (06:50→21:18)
[2018-12-21] MEDS ORDERED: BACITRACIN OINT 0.9 GM PACK TOP ONE (07:13)
[2018-12-21] MEDS: SEVELAMER CARBONATE 800 MG TABLET PO SCH ×3 (07:32→17:51)
[2018-12-21] MEDS ORDERED: ROCURONIUM 100 MG/10 ML VIAL IV ONE (08:53)
[2018-12-21] MEDS ORDERED: PHENYLEPHRINE 1 MG/10 ML SYRINGE IV ONE (08:53)
[2018-12-21] MEDS ORDERED: SUCCINYLCHOLINE 200 MG/10 ML VIAL ONE (08:53)
[2018-12-21] MEDS ORDERED: SEVOFLURANE 1 UNIT/15 MINUTE INH ONE (08:53)
[2018-12-21] MEDS ORDERED: SODIUM CHLORIDE 0.9% 1,000 ML IV ONE (08:53)
[2018-12-21] MEDS ORDERED: ETOMIDATE 40 MG/20 ML VIAL IV ONE (08:53)
[2018-12-21] MEDS ORDERED: fentaNYL 100 MCG/2 ML VIAL ONE (08:53)
[2018-12-21] MEDS ORDERED: ONDANSETRON 4 MG/2 ML VIAL IV PRN (09:01)
[2018-12-21] MEDS ORDERED: HYDROmorphone 2 MG/1 ML VIAL IV PRN (09:01)
[2018-12-21] MEDS: CIPROFLOXACIN 500 MG TABLET PO SCH (09:47)
[2018-12-21] MEDS: amLODIPine 5 MG TABLET PO SCH (09:47)
[2018-12-21] MEDS: PANTOPRAZOLE 40 MG TABLET PO SCH ×2 (09:47→21:18)
[2018-12-21] MEDS: cloNIDine 0.1 MG TABLET PO SCH ×3 (09:47→21:17)
[2018-12-21] MEDS: hydrALAZINE 20 MG/1 ML VIAL IV PRN (11:27)
[2018-12-21] MEDS: oxyCODONE IR 5 MG TABLET PO PRN (11:28)
[2018-12-21] MEDS: ROSUVASTATIN 10 MG TABLET PO SCH (21:17)
[2018-12-21] MEDS: ASPIRIN EC 81 MG TABLET PO SCH (21:17)
[2018-12-21] MEDS: ACETAMINOPHEN 325 MG TABLET PO PRN (21:18)
[2018-12-22 05:33] LABS: Basophils % 0.2 % (0.0-0.8); Eosinophils # 0.2 10*3/uL (0.0-0.87); Eosinophils % 4.7 % (0.00-10.9); Hematocrit 22.6 VOL% (42.0-52.0); Hemoglobin 6.9 GM/DL (14.0-18.0); Immature Granulocytes % 0.4 %; Immature Granulocytes Absolute 0.02 #; Lymphocytes # 0.8 10*3/uL (1.4-4.0); Mean Corpuscular HGB Conc 30.5 GM/DL (32-36); Mean Corpuscular Volume 89.7 FL (87-102); Mean Platelet Volume 9.8 FL (9.6-12.0); Neutrophils % 67.7 % (38.7-73.9); Platelet Count 125 T/CUMM (130-400); Red Blood Count 2.52 MC/CUMM (3.8-5.5); Red Cell Distribution Width 14.7 % (9.3-17.3); White Blood Count 4.9 T/CUMM (4-12)
[2018-12-22] MEDS: PANTOPRAZOLE 40 MG TABLET PO SCH (08:49)
[2018-12-22] MEDS: amLODIPine 5 MG TABLET PO SCH (08:49)
[2018-12-22] MEDS: SEVELAMER CARBONATE 800 MG TABLET PO SCH ×2 (08:49→13:59)
[2018-12-22] MEDS: CIPROFLOXACIN 500 MG TABLET PO SCH (08:50)
[2018-12-22] MEDS: METOPROLOL TARTRATE 25 MG TABLET PO SCH (08:50)
[2018-12-22] MEDS: cloNIDine 0.1 MG TABLET PO SCH ×2 (08:52→14:18)
[2018-12-22] MEDS ORDERED: TOBRAMYCIN INJ 160 MG in SODIUM CHLORIDE 0.9% 100 ML IV PRN (09:45)
[2018-12-22] MEDS ORDERED: SODIUM CHLORIDE 0.9% 1,000 ML IV PRN ×2 (09:51→10:21)
[2018-12-22] MEDS ORDERED: TOBRAMYCIN INJ 160 MG in SODIUM CHLORIDE 0.9% 100 ML IV ONE (12:00)
[2018-12-22] MEDS: oxyCODONE IR 5 MG TABLET PO PRN (14:00)
[2018-12-22] MEDS: hydrALAZINE 20 MG/1 ML VIAL IV PRN (14:19)
[2018-12-22 15:48] VITALS: BP 137/72
== END 2018-12-22 16:40 | disposition home health service (06) | DRG 507 ==
LOC: N.SDSINP 09:59 → N.OR 09:59 → N.SDSINP 10:35 → N.3E 14:25
PROVIDERS: ADMIT Orthopaedic Surgery; ATTEND Orthopaedic Surgery

== ENCOUNTER 2019-06-28 06:45 | Inpatient (IN) ==
[2019-06-21 15:03] LABS: Basophils % 0.8 % (0.0-0.8); Eosinophils # 0.2 10*3/uL (0.0-0.87); Eosinophils % 3.8 % (0.00-10.9); Hematocrit 39.9 VOL% (42.0-52.0); Hemoglobin 12.9 GM/DL (14.0-18.0); Immature Granulocytes % 0.2 %; Immature Granulocytes Absolute 0.01 #; Lymphocytes # 1.4 10*3/uL (1.4-4.0); Lymphocytes % 27.5 % (21.2-54.2); Mean Corpuscular HGB Conc 32.3 GM/DL (32-36); Mean Corpuscular Volume 96.8 FL (87-102); Monocytes % 12.7 % (1.7-12.7); Platelet Count 134 T/CUMM (130-400); Red Blood Count 4.12 MC/CUMM (3.8-5.5); Red Cell Distribution Width 15.8 % (9.3-17.3)
[2019-06-21 15:21] LABS: Calcium 9.3 MG/DL (8.5-10.1); Osmolality,Calculated 276.4 MOS/KG (273-304)
[~2019-06-28 06:45] MED LIST: ceFAZolin 1,000 MG in SYRINGE 1 EACH IV ONE
[2019-06-28 07:30] LABS: Hematocrit 36.9 VOL% (42.0-52.0); Hemoglobin 11.8 GM/DL (14.0-18.0)
[2019-06-28] MEDS ORDERED: ceFAZolin 1,000 MG VIAL ONE (07:39)
[2019-06-28] MEDS ORDERED: BUPIVACAINE MPF 0.25% 30 ML VIAL ONE ×2 (09:51→16:04)
[2019-06-28] MEDS ORDERED: LIDOCAINE 1%/EPI INJ 20 ML VIAL ONE ×2 (09:51→16:04)
[2019-06-28] MEDS ORDERED: LIDOCAINE 1% 5 ML VIAL ONE (09:57)
[2019-06-28] MEDS ORDERED: DEXAMETHASONE 4 MG/1 ML VIAL ONE ×2 (09:57→17:30)
[2019-06-28] MEDS ORDERED: ROPIVACAINE 0.5% 30 ML VIAL ONE (09:57)
[2019-06-28] MEDS ORDERED: LIDOCAINE 2% 5 ML VIAL ONE ×2 (12:29→17:30)
[2019-06-28] MEDS ORDERED: MIDAZOLAM 2 MG/2 ML VIAL ONE ×2 (12:29→17:30)
[2019-06-28] MEDS ORDERED: propofoL 200 MG/20 ML VIAL IV ONE ×2 (12:29→17:30)
[2019-06-28] MEDS ORDERED: SEVOFLURANE 1 UNIT/15 MINUTE INH ONE ×2 (12:29→17:30)
[2019-06-28] MEDS ORDERED: fentaNYL 100 MCG/2 ML VIAL ONE ×2 (12:29→17:30)
[2019-06-28] MEDS ORDERED: ONDANSETRON 4 MG/2 ML VIAL ONE ×3 (12:30→17:30)
[2019-06-28] MEDS ORDERED: ROCURONIUM 100 MG/10 ML VIAL IV ONE (12:30)
[2019-06-28] MEDS ORDERED: NEOSTIGMINE 10 MG/10 ML VIAL ONE ×2 (12:30)
[2019-06-28] MEDS ORDERED: PHENYLEPHRINE 1 MG/10 ML SYRINGE IV ONE ×2 (12:30→17:31)
[2019-06-28] MEDS ORDERED: SODIUM CHLORIDE 0.9% 250 ML IV ONE ×2 (12:30→17:31)
[2019-06-28] MEDS ORDERED: GLYCOPYRROLATE 0.4 MG/2 ML VIAL ONE (12:30)
[2019-06-28] MEDS ORDERED: HYDROmorphone 2 MG/1 ML VIAL ONE (12:32)
[2019-06-28] MEDS ORDERED: ONDANSETRON 4 MG/2 ML VIAL IV PRN ×2 (12:48→13:25)
[2019-06-28] MEDS ORDERED: HYDROmorphone 2 MG/1 ML VIAL IV PRN (12:48)
[2019-06-28] MEDS ORDERED: ALBUTEROL/IPRATROPIUM 3 ML NEB RESP TX PRN (13:25)
[2019-06-28] MEDS ORDERED: KETOROLAC 15 MG/1 ML VIAL IV PRN (13:25)
[2019-06-28] MEDS ORDERED: ACETAMINOPHEN 325 MG TABLET PO PRN (13:25)
[2019-06-28] MEDS ORDERED: BISACODYL 5 MG TABLET PO PRN (13:25)
[2019-06-28] MEDS ORDERED: PHENYLEPHRINE 10 MG/1 ML VIAL IV ONE (17:38)
[2019-06-28] MEDS: SEVELAMER CARBONATE 800 MG TABLET PO SCH ×2 (20:50→21:09)
[2019-06-28] MEDS: ASPIRIN EC 81 MG TABLET PO SCH (21:09)
[2019-06-28] MEDS: ROSUVASTATIN 10 MG TABLET PO SCH (21:09)
[2019-06-28] MEDS: METOPROLOL SUCCINATE XL 25 MG TABLET PO SCH (21:09)
[2019-06-28] MEDS: HYDROmorphone 2 MG/1 ML VIAL IV PRN (21:18)
[2019-06-28] MEDS: ceFAZolin 2,000 MG in PREMIX 1 EACH IV SCH (21:25)
[2019-06-29] MEDS: HYDROmorphone 2 MG/1 ML VIAL IV PRN ×3 (02:36→20:50)
[2019-06-29] MEDS: ceFAZolin 2,000 MG in PREMIX 1 EACH IV SCH (05:22)
[2019-06-29 05:36] LABS: Basophils % 0.4 % (0.0-0.8); Eosinophils % 0.1 % (0.00-10.9); Hematocrit 32.3 VOL% (42.0-52.0); Hemoglobin 10.5 GM/DL (14.0-18.0); Immature Granulocytes % 0.4 %; Immature Granulocytes Absolute 0.03 #; Lymphocytes # 1.2 10*3/uL (1.4-4.0); Lymphocytes % 13.6 % (21.2-54.2); Mean Corpuscular HGB Conc 32.5 GM/DL (32-36); Mean Corpuscular Volume 97.3 FL (87-102); Mean Platelet Volume 10.5 FL (9.6-12.0); Monocytes % 11.6 % (1.7-12.7); Neutrophils % 73.9 % (38.7-73.9); Platelet Count 115 T/CUMM (130-400); Red Blood Count 3.32 MC/CUMM (3.8-5.5); Red Cell Distribution Width 14.8 % (9.3-17.3); White Blood Count 8.4 T/CUMM (4-12)
[2019-06-29] MEDS ORDERED: HEPARIN 1,000 UNIT/1 ML VIAL IV PRN (05:50)
[2019-06-29 06:05] LABS: Calcium 8.9 MG/DL (8.5-10.1); Osmolality,Calculated 280.7 MOS/KG (273-304)
[2019-06-29] MEDS: HEPARIN 10,000 UNIT/10 ML VIAL IV PRN ×2 (07:22→20:55)
[2019-06-29] MEDS: PANTOPRAZOLE 40 MG TABLET PO SCH (08:47)
[2019-06-29] MEDS: cloNIDine 0.1 MG TABLET PO SCH (08:47)
[2019-06-29] MEDS: oxyCODONE/ACETAMINOPHEN 5-325 MG TABLET PO PRN ×2 (08:47→19:05)
[2019-06-29] MEDS: SEVELAMER CARBONATE 800 MG TABLET PO SCH ×5 (09:09→20:58)
[2019-06-29] MEDS ORDERED: propofoL 200 MG/20 ML VIAL IV ONE (09:30)
[2019-06-29] MEDS ORDERED: ETOMIDATE 20 MG/10 ML VIAL IV ONE (09:30)
[2019-06-29] MEDS: SODIUM CHLORIDE 0.9% 500 ML IV SCH (13:50)
[2019-06-29] MEDS: METOPROLOL SUCCINATE XL 25 MG TABLET PO SCH (20:56)
[2019-06-29] MEDS: ROSUVASTATIN 10 MG TABLET PO SCH (20:56)
[2019-06-29 21:14] LABS: Hematocrit 30.4 VOL% (42.0-52.0); Hemoglobin 9.9 GM/DL (14.0-18.0)
[2019-06-29] MEDS: ASPIRIN EC 81 MG TABLET PO SCH (22:29)
[2019-06-30] MEDS: HYDROmorphone 2 MG/1 ML VIAL IV PRN (02:53)
[2019-06-30] MEDS: HEPARIN 10,000 UNIT/10 ML VIAL IV PRN ×2 (02:55→13:13)
[2019-06-30 05:37] LABS: Hematocrit 27.4 VOL% (42.0-52.0); Hemoglobin 8.8 GM/DL (14.0-18.0)
[2019-06-30 09:00] LABS: Hematocrit 26.9 VOL% (42.0-52.0); Hemoglobin 8.7 GM/DL (14.0-18.0)
[2019-06-30] MEDS ORDERED: ceFAZolin 1,000 MG VIAL ONE (09:54)
[2019-06-30] MEDS ORDERED: propofoL 200 MG/20 ML VIAL IV ONE (10:22)
[2019-06-30] MEDS ORDERED: LIDOCAINE 2% 5 ML VIAL ONE (10:22)
[2019-06-30] MEDS ORDERED: SEVOFLURANE 1 UNIT/15 MINUTE INH ONE (10:22)
[2019-06-30] MEDS ORDERED: MIDAZOLAM 2 MG/2 ML VIAL ONE (10:22)
[2019-06-30] MEDS ORDERED: fentaNYL 100 MCG/2 ML VIAL ONE (10:23)
[2019-06-30] MEDS ORDERED: ONDANSETRON 4 MG/2 ML VIAL ONE (10:23)
[2019-06-30] MEDS ORDERED: SODIUM CHLORIDE 0.9% 250 ML IV ONE (10:24)
[2019-06-30] MEDS ORDERED: PHENYLEPHRINE 1 MG/10 ML SYRINGE IV ONE (10:24)
[2019-06-30 11:44] LABS: PT Patient Result 10.7 SECS (9.6-12.2); Partial Thromboplastin Time 24.4 SECS (20.8-36.0)
[2019-06-30] MEDS: SEVELAMER CARBONATE 800 MG TABLET PO SCH ×4 (12:24→21:09)
[2019-06-30] MEDS: cloNIDine 0.1 MG TABLET PO SCH (13:07)
[2019-06-30] MEDS: SODIUM CHLORIDE 0.9% 500 ML IV SCH (15:08)
[2019-06-30 15:40] LABS: Hematocrit 24.8 VOL% (42.0-52.0)
[2019-06-30] MEDS: PANTOPRAZOLE 40 MG TABLET PO SCH (16:46)
[2019-06-30 20:46] LABS: Hematocrit 25.1 VOL% (42.0-52.0); Hemoglobin 8.2 GM/DL (14.0-18.0)
[2019-06-30] MEDS: METOPROLOL SUCCINATE XL 25 MG TABLET PO SCH (21:09)
[2019-06-30] MEDS: oxyCODONE/ACETAMINOPHEN 5-325 MG TABLET PO PRN (21:09)
[2019-06-30] MEDS: ASPIRIN EC 81 MG TABLET PO SCH (21:10)
[2019-06-30] MEDS: ROSUVASTATIN 10 MG TABLET PO SCH (21:10)
[2019-07-01] MEDS: HYDROmorphone 2 MG/1 ML VIAL IV PRN (01:12)
[2019-07-01] MEDS: HEPARIN 10,000 UNIT/10 ML VIAL IV PRN ×2 (01:14→08:16)
[2019-07-01 06:10] LABS: Hematocrit 26.7 VOL% (42.0-52.0); Hemoglobin 8.5 GM/DL (14.0-18.0)
[2019-07-01] MEDS: oxyCODONE/ACETAMINOPHEN 5-325 MG TABLET PO PRN (08:12)
[2019-07-01] MEDS: cloNIDine 0.1 MG TABLET PO SCH (08:13)
[2019-07-01] MEDS: PANTOPRAZOLE 40 MG TABLET PO SCH (08:13)
[2019-07-01] MEDS: SEVELAMER CARBONATE 800 MG TABLET PO SCH ×5 (09:01→21:15)
[2019-07-01] MEDS: METOPROLOL SUCCINATE XL 25 MG TABLET PO SCH (21:15)
[2019-07-01] MEDS: ASPIRIN EC 81 MG TABLET PO SCH (21:15)
[2019-07-01] MEDS: ROSUVASTATIN 10 MG TABLET PO SCH (21:15)
[2019-07-02 07:55] LABS: Hematocrit 20.7 VOL% (42.0-52.0)
[2019-07-02 08:01] VITALS: BP 117/51
[2019-07-02 08:03] LABS: Hemoglobin 6.7 GM/DL (14.0-18.0)
[2019-07-02] MEDS ORDERED: SODIUM CHLORIDE 0.9% 1,000 ML IV PRN (08:55)
[2019-07-02] MEDS: SEVELAMER CARBONATE 800 MG TABLET PO SCH ×3 (09:09→16:07)
[2019-07-02] MEDS: PANTOPRAZOLE 40 MG TABLET PO SCH (09:09)
[2019-07-02] MEDS ORDERED: HEPARIN 10,000 UNIT/10 ML VIAL IV SCH (12:00)
[2019-07-02] MEDS: cloNIDine 0.1 MG TABLET PO SCH (16:07)
== END 2019-07-02 15:48 | disposition home health service (06) | DRG 353 ==
LOC: N.OR 06:45 → N.SDSINP 06:45 → N.3E 13:29
PROVIDERS: ADMIT Surgery; ATTEND Surgery

== ENCOUNTER 2019-07-09 14:28 | Observation (INO) ==
[2019-07-09] MEDS ORDERED: LACTATED RINGERS 1,000 ML IV SCH (15:30)
[2019-07-09] MEDS ORDERED: BISACODYL 5 MG TABLET PO PRN (15:30)
[2019-07-09] MEDS ORDERED: ONDANSETRON 4 MG/2 ML VIAL IV PRN ×2 (15:30→17:06)
[2019-07-09] MEDS ORDERED: ALBUTEROL/IPRATROPIUM 3 ML NEB RESP TX PRN (15:30)
[2019-07-09] MEDS ORDERED: KETOROLAC 15 MG/1 ML VIAL IV PRN (15:30)
[2019-07-09] MEDS ORDERED: ACETAMINOPHEN 325 MG TABLET PO PRN (15:30)
[2019-07-09 15:38] LABS: Basophils % 0.9 % (0.0-0.8); Eosinophils # 0.6 10*3/uL (0.0-0.87); Eosinophils % 12.2 % (0.00-10.9); Hematocrit 26.6 VOL% (42.0-52.0); Hemoglobin 8.5 GM/DL (14.0-18.0); Immature Granulocytes % 0.4 %; Immature Granulocytes Absolute 0.02 #; Lymphocytes % 20.7 % (21.2-54.2); Mean Corpuscular Volume 100.4 FL (87-102); Mean Platelet Volume 8.8 FL (9.6-12.0); Monocytes % 10.7 % (1.7-12.7); Neutrophils % 55.1 % (38.7-73.9); Platelet Count 118 T/CUMM (130-400); Red Blood Count 2.65 MC/CUMM (3.8-5.5); White Blood Count 4.6 T/CUMM (4-12)
[2019-07-09 15:43] LABS: Calcium 8.5 MG/DL (8.5-10.1)
[2019-07-09 15:49] LABS: PT Patient Result 10.9 SECS (9.6-12.2)
[2019-07-09 15:50] LABS: Partial Thromboplastin Time 49.6 SECS (20.8-36.0)
[2019-07-09 16:09] LABS: Eosinophils 11 % (0-10); Lymphocytes 20 % (20-55); Segmented Neutrophils 62 % (50-85); Total Cells Counted 100
[2019-07-09] MEDS ORDERED: ceFAZolin 1,000 MG VIAL ONE (16:13)
[2019-07-09] MEDS ORDERED: cloNIDine 0.1 MG TABLET ONE (17:04)
[2019-07-09] MEDS ORDERED: ONDANSETRON 4 MG/2 ML VIAL ONE ×2 (17:04→17:18)
[2019-07-09] MEDS ORDERED: cloNIDine 0.1 MG TABLET PO ONE (17:06)
[2019-07-09] MEDS ORDERED: HYDROmorphone 2 MG/1 ML VIAL ONE (17:14)
[2019-07-09] MEDS ORDERED: HYDROmorphone 2 MG/1 ML VIAL IV PRN (17:15)
[2019-07-09] MEDS ORDERED: NEOSTIGMINE 10 MG/10 ML VIAL ONE (17:18)
[2019-07-09] MEDS ORDERED: SEVOFLURANE 1 UNIT/15 MINUTE INH ONE (17:18)
[2019-07-09] MEDS ORDERED: LABETALOL 20 MG/4 ML SYRINGE IV ONE (17:18)
[2019-07-09] MEDS ORDERED: ROCURONIUM 100 MG/10 ML VIAL IV ONE (17:18)
[2019-07-09] MEDS ORDERED: hydrALAZINE 20 MG/1 ML VIAL ONE (17:18)
[2019-07-09] MEDS ORDERED: DEXAMETHASONE 4 MG/1 ML VIAL ONE (17:18)
[2019-07-09] MEDS ORDERED: GLYCOPYRROLATE 0.4 MG/2 ML VIAL ONE (17:18)
[2019-07-09] MEDS ORDERED: SUCCINYLCHOLINE 200 MG/10 ML VIAL ONE (17:18)
[2019-07-09] MEDS ORDERED: LIDOCAINE 2% 5 ML VIAL ONE (17:18)
[2019-07-10 04:39] LABS: Basophils % 0.6 % (0.0-0.8); Eosinophils # 0.2 10*3/uL (0.0-0.87); Eosinophils % 4.2 % (0.00-10.9); Hematocrit 24.4 VOL% (42.0-52.0); Hemoglobin 7.4 GM/DL (14.0-18.0); Immature Granulocytes % 0.2 %; Immature Granulocytes Absolute 0.01 #; Lymphocytes % 19.5 % (21.2-54.2); Mean Corpuscular HGB Conc 30.3 GM/DL (32-36); Mean Corpuscular Volume 102.5 FL (87-102); Monocytes % 8.4 % (1.7-12.7); Neutrophils % 67.1 % (38.7-73.9); Platelet Count 128 T/CUMM (130-400); Red Blood Count 2.38 MC/CUMM (3.8-5.5); Red Cell Distribution Width 14.4 % (9.3-17.3); White Blood Count 5.2 T/CUMM (4-12)
[2019-07-10 05:06] LABS: Calcium 8.7 MG/DL (8.5-10.1); Osmolality,Calculated 279.8 MOS/KG (273-304)
[2019-07-10] MEDS: PANTOPRAZOLE 40 MG TABLET PO SCH (08:12)
[2019-07-10] MEDS ORDERED: SODIUM POLYSTYRENE SULFATE 15 GM/60 ML BOTTLE PO ONE (11:47)
[2019-07-10] MEDS ORDERED: SODIUM CHLORIDE 0.9% 1,000 ML IV PRN (11:59)
[2019-07-10] MEDS: SEVELAMER CARBONATE 800 MG TABLET PO SCH ×3 (14:55→22:27)
[2019-07-10] MEDS: METOPROLOL SUCCINATE XL 25 MG TABLET PO SCH (22:20)
[2019-07-10] MEDS: ROSUVASTATIN 10 MG TABLET PO SCH (22:20)
[2019-07-11 06:22] LABS: Basophils % 0.8 % (0.0-0.8); Hemoglobin 7.2 GM/DL (14.0-18.0); Immature Granulocytes % 0.2 %; Immature Granulocytes Absolute 0.01 #; Lymphocytes # 1.2 10*3/uL (1.4-4.0); Lymphocytes % 24.6 % (21.2-54.2); Mean Corpuscular HGB Conc 31.3 GM/DL (32-36); Mean Corpuscular Volume 103.1 FL (87-102); Mean Platelet Volume 9.3 FL (9.6-12.0); Monocytes % 10.5 % (1.7-12.7); Neutrophils % 43.9 % (38.7-73.9); Platelet Count 109 T/CUMM (130-400); Red Blood Count 2.23 MC/CUMM (3.8-5.5); Red Cell Distribution Width 14.1 % (9.3-17.3)
[2019-07-11 06:38] LABS: Calcium 8.6 MG/DL (8.5-10.1); Osmolality,Calculated 277.1 MOS/KG (273-304)
[2019-07-11 06:49] LABS: Eosinophils 30 % (0-10); Lymphocytes 21 % (20-55); Segmented Neutrophils 41 % (50-85); Total Cells Counted 100
[2019-07-11 06:50] LABS: Hypochromasia 1+; Macrocytosis Slight
[2019-07-11 06:51] LABS: Platelet Estimate Decreased
[2019-07-11] MEDS: cloNIDine 0.1 MG TABLET PO SCH (08:00)
[2019-07-11] MEDS: PANTOPRAZOLE 40 MG TABLET PO SCH (08:00)
[2019-07-11] MEDS: SEVELAMER CARBONATE 800 MG TABLET PO SCH ×5 (08:12→21:53)
[2019-07-11] MEDS: ROSUVASTATIN 10 MG TABLET PO SCH (21:53)
[2019-07-11] MEDS: METOPROLOL SUCCINATE XL 25 MG TABLET PO SCH (21:53)
[2019-07-12 05:30] LABS: Basophils # 0.1 10*3/uL (0.0-0.2); Basophils % 1.1 % (0.0-0.8); Eosinophils # 0.9 10*3/uL (0.0-0.87); Eosinophils % 17.1 % (0.00-10.9); Hematocrit 28.4 VOL% (42.0-52.0); Hemoglobin 8.8 GM/DL (14.0-18.0); Immature Granulocytes % 0.2 %; Immature Granulocytes Absolute 0.01 #; Lymphocytes # 1.3 10*3/uL (1.4-4.0); Lymphocytes % 24.3 % (21.2-54.2); Mean Corpuscular Volume 100.4 FL (87-102); Mean Platelet Volume 9.9 FL (9.6-12.0); Monocytes % 10.1 % (1.7-12.7); Neutrophils % 47.2 % (38.7-73.9); Platelet Count 114 T/CUMM (130-400); Red Blood Count 2.83 MC/CUMM (3.8-5.5); Red Cell Distribution Width 14.6 % (9.3-17.3); White Blood Count 5.4 T/CUMM (4-12)
[2019-07-12 05:52] LABS: Calcium 8.5 MG/DL (8.5-10.1); Osmolality,Calculated 279.8 MOS/KG (273-304)
[2019-07-12 06:00] LABS: Eosinophils 16 % (0-10); Hypochromasia 1+; Lymphocytes 22 % (20-55); Ovalocytes Slight; Platelet Estimate Decreased; Segmented Neutrophils 51 % (50-85); Total Cells Counted 100
[2019-07-12 06:01] LABS: Macrocytosis Slight; Misc Morphology FEW LARGE PL
[2019-07-12] MEDS: cloNIDine 0.1 MG TABLET PO SCH (09:51)
[2019-07-12] MEDS: PANTOPRAZOLE 40 MG TABLET PO SCH (09:51)
[2019-07-12] MEDS: SEVELAMER CARBONATE 800 MG TABLET PO SCH ×3 (09:51→13:11)
[2019-07-12 13:10] VITALS: BP 150/46
== END 2019-07-12 14:35 | disposition home health service (06) ==
LOC: EDUNIT# → EDBD → N.ED 14:28 → N.EDINP 14:28 → SUATTDRO 15:30 → N.ICU 17:04 → N.3E 07-10 09:57
PROVIDERS: ADMIT Surgery; ATTEND Surgery

== ENCOUNTER 2019-08-24 10:44 | Inpatient (IN) ==
[2019-08-24] MEDS ORDERED: ONDANSETRON 4 MG/2 ML VIAL IV STA (11:09)
[2019-08-24] MEDS ORDERED: fentaNYL 100 MCG/2 ML VIAL IV STA (11:09)
[2019-08-24 11:30] LABS: Basophils % 0.8 % (0.0-0.8); Eosinophils # 0.1 10*3/uL (0.0-0.87); Eosinophils % 3.8 % (0.00-10.9); Hematocrit 34.2 VOL% (42.0-52.0); Hemoglobin 11.2 GM/DL (14.0-18.0); Immature Granulocytes % 0.3 %; Immature Granulocytes Absolute 0.01 #; Lymphocytes # 1.3 10*3/uL (1.4-4.0); Mean Corpuscular HGB Conc 32.7 GM/DL (32-36); Mean Corpuscular Volume 96.9 FL (87-102); Mean Platelet Volume 10.2 FL (9.6-12.0); Monocytes % 11.7 % (1.7-12.7); Neutrophils % 47.4 % (38.7-73.9); Platelet Count 127 T/CUMM (130-400); Red Blood Count 3.53 MC/CUMM (3.8-5.5); Red Cell Distribution Width 14.9 % (9.3-17.3); White Blood Count 3.7 T/CUMM (4-12)
[2019-08-24] MEDS ORDERED: ceFAZolin 1,000 MG in SYRINGE 1 EACH IV ONE (11:33)
[2019-08-24] MEDS ORDERED: IBUPROFEN 400 MG TABLET PO PRN (11:35)
[2019-08-24] MEDS ORDERED: ONDANSETRON 4 MG/2 ML VIAL IV PRN (11:35)
[2019-08-24] MEDS ORDERED: ACETAMINOPHEN 325 MG TABLET PO PRN (11:35)
[2019-08-24] MEDS ORDERED: ALBUTEROL/IPRATROPIUM 3 ML NEB RESP TX PRN (11:35)
[2019-08-24] MEDS ORDERED: BISACODYL 5 MG TABLET PO PRN (11:35)
[2019-08-24] MEDS ORDERED: KETOROLAC 10 MG TABLET PO PRN (11:35)
[2019-08-24 12:27] LABS: Albumin 3.1 G/DL (3.4-5.0); Bilirubin,Total 0.7 MG/DL (0.2-1.0); Calcium 9.6 MG/DL (8.5-10.1); Total Protein 7.7 G/DL (6.4-8.3)
[2019-08-24] MEDS ORDERED: LIDOCAINE 1% 20 ML VIAL ONE (12:51)
[2019-08-24] MEDS ORDERED: BUPIVACAINE MPF 0.25% 30 ML VIAL ONE (12:51)
[2019-08-24] MEDS ORDERED: propofoL 200 MG/20 ML VIAL IV ONE (13:53)
[2019-08-24] MEDS ORDERED: MIDAZOLAM 2 MG/2 ML VIAL ONE (13:53)
[2019-08-24] MEDS ORDERED: KETAMINE 500 MG/10 ML VIAL ONE (13:53)
[2019-08-24] MEDS ORDERED: fentaNYL 100 MCG/2 ML VIAL ONE (13:54)
[2019-08-24] MEDS ORDERED: PHENYLEPHRINE 1 MG/10 ML SYRINGE IV ONE (13:54)
[2019-08-24] MEDS ORDERED: SODIUM CHLORIDE 0.9% 100 ML IV ONE (13:54)
[2019-08-24] MEDS ORDERED: ePHEDrine 50 MG/ML AMP ONE (13:54)
[2019-08-24] MEDS ORDERED: SODIUM CHLORIDE 0.9% 500 ML IV ONE (13:54)
[2019-08-24] MEDS ORDERED: ETOMIDATE 40 MG/20 ML VIAL IV ONE (13:54)
[2019-08-24 13:59] LABS: INR 1.1; PT Patient Result 11.4 SECS (9.8-11.9)
[2019-08-24 14:00] LABS: Partial Thromboplastin Time 98.2 SECS (23.9-33.8)
[2019-08-25 02:22] LABS: Basophils % 0.6 % (0.0-0.8); Eosinophils # 0.2 10*3/uL (0.0-0.87); Eosinophils % 3.4 % (0.00-10.9); Hematocrit 26.9 VOL% (42.0-52.0); Hemoglobin 8.5 GM/DL (14.0-18.0); Immature Granulocytes % 0.2 %; Immature Granulocytes Absolute 0.01 #; Lymphocytes # 1.3 10*3/uL (1.4-4.0); Mean Corpuscular HGB Conc 31.6 GM/DL (32-36); Mean Corpuscular Volume 98.5 FL (87-102); Mean Platelet Volume 9.3 FL (9.6-12.0); Monocytes % 12.2 % (1.7-12.7); Neutrophils % 58.6 % (38.7-73.9); Platelet Count 102 T/CUMM (130-400); Red Blood Count 2.73 MC/CUMM (3.8-5.5); Red Cell Distribution Width 15.1 % (9.3-17.3); White Blood Count 5.1 T/CUMM (4-12)
[2019-08-25 02:35] LABS: Calcium 8.7 MG/DL (8.5-10.1)
[2019-08-25 02:41] LABS: INR 1.1; PT Patient Result 11.3 SECS (9.8-11.9)
[2019-08-25] MEDS ORDERED: PANTOPRAZOLE 40 MG TABLET PO SCH (09:00)
[2019-08-25 12:02] VITALS: BP 127/82
== END 2019-08-25 12:12 | disposition home health service (06) | DRG 252 ==
LOC: N.ED 10:44 → N.EDINP 11:35 → N.3E 14:33
PROVIDERS: ADMIT Surgery; ATTEND Surgery

== ENCOUNTER 2019-08-27 13:45 | Inpatient (IN) ==
[2019-08-27] MEDS ORDERED: fentaNYL 100 MCG/2 ML VIAL IV STA (14:16)
[2019-08-27] MEDS ORDERED: ONDANSETRON 4 MG/2 ML VIAL IV STA (14:16)
[2019-08-27 14:31] LABS: Basophils % 0.7 % (0.0-0.8); Eosinophils # 0.3 10*3/uL (0.0-0.87); Eosinophils % 7.9 % (0.00-10.9); Hematocrit 23.7 VOL% (42.0-52.0); Hemoglobin 7.6 GM/DL (14.0-18.0); Immature Granulocytes % 0.2 %; Immature Granulocytes Absolute 0.01 #; Lymphocytes % 24.1 % (21.2-54.2); Mean Corpuscular HGB Conc 32.1 GM/DL (32-36); Mean Corpuscular Volume 97.5 FL (87-102); Mean Platelet Volume 9.9 FL (9.6-12.0); Monocytes % 13.2 % (1.7-12.7); Neutrophils % 53.9 % (38.7-73.9); Platelet Count 101 T/CUMM (130-400); Red Blood Count 2.43 MC/CUMM (3.8-5.5); Red Cell Distribution Width 14.9 % (9.3-17.3); White Blood Count 4.3 T/CUMM (4-12)
[2019-08-27 15:00] LABS: PT Patient Result 10.8 SECS (9.8-11.9)
[2019-08-27 15:02] LABS: Partial Thromboplastin Time 109.5 SECS (23.9-33.8)
[2019-08-27 15:09] LABS: Albumin 2.8 G/DL (3.4-5.0); Bilirubin,Total 0.5 MG/DL (0.2-1.0); Calcium 8.8 MG/DL (8.5-10.1)
[2019-08-27] MEDS ORDERED: ONDANSETRON 4 MG/2 ML VIAL IV PRN (15:11)
[2019-08-27] MEDS ORDERED: ALBUTEROL/IPRATROPIUM 3 ML NEB RESP TX PRN (15:11)
[2019-08-27] MEDS ORDERED: ACETAMINOPHEN 325 MG TABLET PO PRN (15:11)
[2019-08-27] MEDS ORDERED: BUPIVACAINE MPF 0.25% 30 ML VIAL ONE (15:15)
[2019-08-27] MEDS ORDERED: LIDOCAINE 1%/EPI INJ 20 ML VIAL ONE (15:15)
[2019-08-27] MEDS ORDERED: ceFAZolin 1,000 MG VIAL ONE (16:15)
[2019-08-27] MEDS ORDERED: SODIUM CHLORIDE 0.9% 1,000 ML IV PRN (16:47)
[2019-08-27] MEDS ORDERED: LIDOCAINE 2% 5 ML VIAL ONE (16:57)
[2019-08-27] MEDS ORDERED: fentaNYL 100 MCG/2 ML VIAL ONE (16:57)
[2019-08-27] MEDS ORDERED: propofoL 200 MG/20 ML VIAL IV ONE (16:57)
[2019-08-27] MEDS ORDERED: SEVOFLURANE 1 UNIT/15 MINUTE INH ONE (16:57)
[2019-08-27] MEDS ORDERED: ONDANSETRON 4 MG/2 ML VIAL ONE (16:58)
[2019-08-27] MEDS ORDERED: SODIUM CHLORIDE 0.9% 500 ML IV ONE (16:58)
[2019-08-27] MEDS ORDERED: MIDAZOLAM 2 MG/2 ML VIAL ONE (16:58)
[2019-08-27] MEDS ORDERED: PHENYLEPHRINE 1 MG/10 ML SYRINGE IV ONE (16:58)
[2019-08-27] MEDS ORDERED: ETOMIDATE 40 MG/20 ML VIAL IV ONE (16:58)
[2019-08-27] MEDS: KETOROLAC 15 MG/1 ML VIAL IV PRN (17:17)
[2019-08-27] MEDS ORDERED: KETOROLAC 15 MG/1 ML VIAL ONE (17:17)
[2019-08-27] MEDS ORDERED: HYDROmorphone 2 MG/1 ML VIAL IV PRN (21:51)
[2019-08-28] MEDS: oxyCODONE/ACETAMINOPHEN 5-325 MG TABLET PO PRN ×3 (00:38→12:58)
[2019-08-28] MEDS: KETOROLAC 15 MG/1 ML VIAL IV PRN (00:41)
[2019-08-28 00:55] LABS: INR 1.1; PT Patient Result 11.3 SECS (9.8-11.9)
[2019-08-28 01:39] LABS: Basophils % 0.6 % (0.0-0.8); Eosinophils # 0.1 10*3/uL (0.0-0.87); Eosinophils % 3.6 % (0.00-10.9); Hematocrit 20.1 VOL% (42.0-52.0); Hemoglobin 6.6 GM/DL (14.0-18.0); Immature Granulocytes % 0.3 %; Immature Granulocytes Absolute 0.01 #; Lymphocytes # 0.7 10*3/uL (1.4-4.0); Lymphocytes % 20.1 % (21.2-54.2); Mean Corpuscular HGB Conc 32.8 GM/DL (32-36); Mean Platelet Volume 10.1 FL (9.6-12.0); Monocytes % 13.3 % (1.7-12.7); Neutrophils % 62.1 % (38.7-73.9); Platelet Count 90 T/CUMM (130-400); Red Blood Count 2.05 MC/CUMM (3.8-5.5); White Blood Count 3.4 T/CUMM (4-12)
[2019-08-28] MEDS ORDERED: SODIUM CHLORIDE 0.9% 1,000 ML IV PRN (01:48)
[2019-08-28] MEDS ORDERED: HYDROmorphone 2 MG/1 ML VIAL IV ONE (01:49)
[2019-08-28] MEDS: PANTOPRAZOLE 40 MG TABLET PO SCH (08:48)
[2019-08-28] MEDS ORDERED: HYDROmorphone 2 MG/1 ML VIAL IM PRN (09:10)
[2019-08-28 09:46] LABS: Basophils % 0.5 % (0.0-0.8); Eosinophils # 0.2 10*3/uL (0.0-0.87); Eosinophils % 3.3 % (0.00-10.9); Hematocrit 23.6 VOL% (42.0-52.0); Hemoglobin 7.9 GM/DL (14.0-18.0); Immature Granulocytes % 0.3 %; Immature Granulocytes Absolute 0.02 #; Lymphocytes # 1.1 10*3/uL (1.4-4.0); Lymphocytes % 17.1 % (21.2-54.2); Mean Corpuscular HGB Conc 33.5 GM/DL (32-36); Mean Corpuscular Volume 95.2 FL (87-102); Mean Platelet Volume 9.6 FL (9.6-12.0); Monocytes % 8.7 % (1.7-12.7); Neutrophils % 70.1 % (38.7-73.9); Red Blood Count 2.48 MC/CUMM (3.8-5.5); Red Cell Distribution Width 15.5 % (9.3-17.3)
[2019-08-28 09:54] LABS: Platelet Count 115 T/CUMM (130-400); White Blood Count 6.4 T/CUMM (4-12)
[2019-08-28] MEDS ORDERED: SEVELAMER CARBONATE 800 MG TABLET PO SCH (15:00)
[2019-08-28] MEDS: SEVELAMER CARBONATE 800 MG TABLET PO SCH ×2 (17:18→21:28)
[2019-08-28] MEDS: ROSUVASTATIN 10 MG TABLET PO SCH (21:28)
[2019-08-28] MEDS: METOPROLOL SUCCINATE XL 25 MG TABLET PO SCH (21:28)
[2019-08-29 06:13] LABS: Basophils % 0.4 % (0.0-0.8); Eosinophils # 0.5 10*3/uL (0.0-0.87); Eosinophils % 9.8 % (0.00-10.9); Hematocrit 18.3 VOL% (42.0-52.0); Immature Granulocytes % 0.2 %; Immature Granulocytes Absolute 0.01 #; Lymphocytes # 0.9 10*3/uL (1.4-4.0); Lymphocytes % 17.9 % (21.2-54.2); Mean Corpuscular HGB Conc 32.8 GM/DL (32-36); Mean Corpuscular Volume 94.8 FL (87-102); Mean Platelet Volume 9.7 FL (9.6-12.0); Monocytes % 10.6 % (1.7-12.7); Neutrophils % 61.1 % (38.7-73.9); Platelet Count 81 T/CUMM (130-400); Red Blood Count 1.93 MC/CUMM (3.8-5.5); Red Cell Distribution Width 15.4 % (9.3-17.3); White Blood Count 5.1 T/CUMM (4-12)
[2019-08-29 06:36] LABS: Eosinophils 7 % (0-10); Lymphocytes 23 % (20-55); Segmented Neutrophils 64 % (50-85); Total Cells Counted 100
[2019-08-29 06:37] LABS: Anisocytosis 1+; Hypochromasia Slight; Polychromasia Slight
[2019-08-29 06:38] LABS: Ovalocytes Slight; Platelet Estimate Decreased; Target Cells Slight
[2019-08-29] MEDS ORDERED: ceFAZolin 1,000 MG in SYRINGE 1 EACH IV ONE (08:15)
[2019-08-29] MEDS: SEVELAMER CARBONATE 800 MG TABLET PO SCH ×5 (09:27→21:07)
[2019-08-29] MEDS ORDERED: SODIUM CHLORIDE 0.9% 1,000 ML IV PRN ×6 (09:32→17:34)
[2019-08-29] MEDS: cloNIDine 0.1 MG TABLET PO SCH (14:13)
[2019-08-29] MEDS: PANTOPRAZOLE 40 MG TABLET PO SCH (14:13)
[2019-08-29] MEDS: oxyCODONE/ACETAMINOPHEN 5-325 MG TABLET PO PRN ×2 (15:32→23:46)
[2019-08-29 16:00] LABS: Hematocrit 28.9 VOL% (42.0-52.0); Hemoglobin 9.7 GM/DL (14.0-18.0)
[2019-08-29 18:08] LABS: Total Protein 6.9 G/DL (6.4-8.3)
[2019-08-29] MEDS: ROSUVASTATIN 10 MG TABLET PO SCH (21:07)
[2019-08-29] MEDS: METOPROLOL SUCCINATE XL 25 MG TABLET PO SCH (21:07)
[2019-08-30 06:10] LABS: Basophils % 0.3 % (0.0-0.8); Eosinophils # 0.5 10*3/uL (0.0-0.87); Eosinophils % 8.9 % (0.00-10.9); Hematocrit 25.5 VOL% (42.0-52.0); Hemoglobin 8.2 GM/DL (14.0-18.0); Immature Granulocytes % 0.3 %; Immature Granulocytes Absolute 0.02 #; Lymphocytes # 1.1 10*3/uL (1.4-4.0); Lymphocytes % 18.7 % (21.2-54.2); Mean Corpuscular HGB Conc 32.2 GM/DL (32-36); Mean Corpuscular Volume 95.9 FL (87-102); Monocytes % 8.9 % (1.7-12.7); Neutrophils % 62.9 % (38.7-73.9); Platelet Count 106 T/CUMM (130-400); Red Blood Count 2.66 MC/CUMM (3.8-5.5); Red Cell Distribution Width 14.8 % (9.3-17.3); White Blood Count 5.7 T/CUMM (4-12)
[2019-08-30 06:17] LABS: Immunoglobulin A (Chem) 225 MG/DL (70-400); Immunoglobulin G (Chem) 1360 MG/DL (700-1600); Immunoglobulin M (Chem) 101 MG/DL (40-230); Total Protein (Chem) 6.9 G/DL (6.4-8.3)
[2019-08-30 06:18] LABS: PT Patient Result 10.7 SECS (9.8-11.9); Partial Thromboplastin Time 25.5 SECS (23.9-33.8)
[2019-08-30 06:54] LABS: Hypochromasia 1+; Ovalocytes Slight; Platelet Estimate Decreased
[2019-08-30] MEDS: SEVELAMER CARBONATE 800 MG TABLET PO SCH ×5 (07:48→21:19)
[2019-08-30] MEDS ORDERED: ceFAZolin 1,000 MG in SYRINGE 1 EACH IV ONE (08:00)
[2019-08-30 08:08] LABS: Albumin (SPE) Rel % 57.7 %; Alpha 1 (SPE) 0.3 G/DL (0.1-0.4); Alpha 1 (SPE) Rel % 4.5 %; Alpha 2 (SPE) 0.7 G/DL (0.4-1.0); Alpha 2 (SPE) Rel % 10.2 %; Beta (SPE) 0.6 G/DL (0.5-1.1); Beta (SPE) Rel % 8.2 %; Gamma (SPE) 1.3 G/DL (0.7-1.7); Gamma (SPE) Rel % 19.4 %
[2019-08-30] MEDS ORDERED: fentaNYL 100 MCG/2 ML VIAL IV ONE (08:30)
[2019-08-30] MEDS ORDERED: SODIUM CHLORIDE 0.9% 250 ML IV SCH (08:30)
[2019-08-30] MEDS ORDERED: MIDAZOLAM 2 MG/2 ML VIAL IV ONE (08:30)
[2019-08-30] MEDS ORDERED: hydrALAZINE 20 MG/1 ML VIAL ONE (09:31)
[2019-08-30] MEDS ORDERED: LIDOCAINE 2% 5 ML VIAL ONE (09:33)
[2019-08-30] MEDS ORDERED: propofoL 200 MG/20 ML VIAL IV ONE (09:33)
[2019-08-30] MEDS ORDERED: SODIUM CHLORIDE 0.9% 250 ML IV ONE (09:34)
[2019-08-30] MEDS ORDERED: ETOMIDATE 40 MG/20 ML VIAL IV ONE (09:34)
[2019-08-30] MEDS ORDERED: fentaNYL 100 MCG/2 ML VIAL ONE (09:34)
[2019-08-30] MEDS ORDERED: ONDANSETRON 4 MG/2 ML VIAL ONE (09:34)
[2019-08-30] MEDS ORDERED: PHENYLEPHRINE 1 MG/10 ML SYRINGE IV ONE (09:34)
[2019-08-30] MEDS ORDERED: SEVOFLURANE 1 UNIT/15 MINUTE INH ONE (09:34)
[2019-08-30] MEDS ORDERED: hydrALAZINE 20 MG/1 ML VIAL IV ONE (09:35)
[2019-08-30] MEDS ORDERED: cloNIDine 0.1 MG TABLET ONE (09:52)
[2019-08-30] MEDS: cloNIDine 0.1 MG TABLET PO SCH (09:52)
[2019-08-30] MEDS: PANTOPRAZOLE 40 MG TABLET PO SCH (12:13)
[2019-08-30 14:03] LABS: Hematocrit 22.8 VOL% (42.0-52.0); Hemoglobin 7.5 GM/DL (14.0-18.0)
[2019-08-30] MEDS: METOPROLOL SUCCINATE XL 25 MG TABLET PO SCH (21:15)
[2019-08-30] MEDS: ROSUVASTATIN 10 MG TABLET PO SCH (21:15)
[2019-08-31 06:02] LABS: Basophils % 0.6 % (0.0-0.8); Eosinophils # 0.5 10*3/uL (0.0-0.87); Eosinophils % 8.9 % (0.00-10.9); Hematocrit 22.4 VOL% (42.0-52.0); Hemoglobin 7.2 GM/DL (14.0-18.0); Immature Granulocytes % 0.4 %; Immature Granulocytes Absolute 0.02 #; Lymphocytes % 18.7 % (21.2-54.2); Mean Corpuscular HGB Conc 32.1 GM/DL (32-36); Mean Corpuscular Volume 94.9 FL (87-102); Mean Platelet Volume 9.8 FL (9.6-12.0); Neutrophils % 61.4 % (38.7-73.9); Platelet Count 121 T/CUMM (130-400); Red Blood Count 2.36 MC/CUMM (3.8-5.5); Red Cell Distribution Width 14.2 % (9.3-17.3); White Blood Count 5.2 T/CUMM (4-12)
[2019-08-31 07:43] LABS: Immuno Free Light Chain Kappa 46.63 MG/DL (0.33-1.94)
[2019-08-31 07:44] LABS: Immuno Free Light Chain Ratio 1.48 MG/DL (0.26-1.65)
[2019-08-31] MEDS ORDERED: HEPARIN/NACL 0.9% 2 UNITS/ML 1,000 ML IV ONE (07:52)
[2019-08-31] MEDS ORDERED: DIAZEPAM 5 MG TABLET PO ONE (08:59)
[2019-08-31] MEDS ORDERED: ceFAZolin 1,000 MG in SYRINGE 1 EACH IV ONE (08:59)
[2019-08-31] MEDS ORDERED: HEPARIN/NACL 0.9% 2 UNITS/ML 2,000 ML IV ONE (10:01)
[2019-08-31] MEDS ORDERED: fentaNYL 100 MCG/2 ML VIAL IV ONE (10:18)
[2019-08-31] MEDS ORDERED: MIDAZOLAM 2 MG/2 ML VIAL IV ONE (10:18)
[2019-08-31] MEDS ORDERED: fentaNYL 100 MCG/2 ML VIAL ONE (10:41)
[2019-08-31] MEDS ORDERED: MIDAZOLAM 2 MG/2 ML VIAL ONE (10:41)
[2019-08-31 11:04] LABS: von Willebrand Factor Activity 192 % (55 - 200)
[2019-08-31] MEDS: SEVELAMER CARBONATE 800 MG TABLET PO SCH ×5 (12:41→21:28)
[2019-08-31] MEDS: SODIUM CHLORIDE 0.9% 250 ML IV SCH (14:31)
[2019-08-31] MEDS: PANTOPRAZOLE 40 MG TABLET PO SCH (17:14)
[2019-08-31] MEDS: cloNIDine 0.1 MG TABLET PO SCH (17:22)
[2019-08-31] MEDS: ROSUVASTATIN 10 MG TABLET PO SCH (21:29)
[2019-08-31] MEDS: METOPROLOL SUCCINATE XL 25 MG TABLET PO SCH (21:40)
[2019-08-31] MEDS: BISACODYL 5 MG TABLET PO PRN (23:36)
[2019-09-01 06:06] LABS: Basophils % 0.5 % (0.0-0.8); Eosinophils # 0.5 10*3/uL (0.0-0.87); Eosinophils % 8.7 % (0.00-10.9); Hematocrit 25.4 VOL% (42.0-52.0); Hemoglobin 8.4 GM/DL (14.0-18.0); Immature Granulocytes % 0.3 %; Immature Granulocytes Absolute 0.02 #; Lymphocytes % 16.1 % (21.2-54.2); Mean Corpuscular HGB Conc 33.1 GM/DL (32-36); Mean Platelet Volume 9.8 FL (9.6-12.0); Monocytes % 13.4 % (1.7-12.7); Platelet Count 133 T/CUMM (130-400); Red Blood Count 2.76 MC/CUMM (3.8-5.5); Red Cell Distribution Width 13.7 % (9.3-17.3)
[2019-09-01] MEDS: cloNIDine 0.1 MG TABLET PO SCH (09:28)
[2019-09-01] MEDS: PANTOPRAZOLE 40 MG TABLET PO SCH (09:28)
[2019-09-01] MEDS: SEVELAMER CARBONATE 800 MG TABLET PO SCH ×5 (09:30→20:23)
[2019-09-01] MEDS: ROSUVASTATIN 10 MG TABLET PO SCH (20:24)
[2019-09-01] MEDS: BISACODYL 5 MG TABLET PO PRN (20:24)
[2019-09-01] MEDS: METOPROLOL SUCCINATE XL 25 MG TABLET PO SCH (21:51)
[2019-09-02 06:57] LABS: Basophils % 0.6 % (0.0-0.8); Eosinophils # 0.5 10*3/uL (0.0-0.87); Eosinophils % 10.2 % (0.00-10.9); Hematocrit 23.1 VOL% (42.0-52.0); Hemoglobin 7.7 GM/DL (14.0-18.0); Immature Granulocytes % 0.2 %; Immature Granulocytes Absolute 0.01 #; Lymphocytes # 0.9 10*3/uL (1.4-4.0); Lymphocytes % 17.7 % (21.2-54.2); Mean Corpuscular HGB Conc 33.3 GM/DL (32-36); Mean Platelet Volume 8.9 FL (9.6-12.0); Neutrophils % 59.3 % (38.7-73.9); Platelet Count 123 T/CUMM (130-400); Red Blood Count 2.51 MC/CUMM (3.8-5.5); Red Cell Distribution Width 13.4 % (9.3-17.3); White Blood Count 4.9 T/CUMM (4-12)
[2019-09-02] MEDS: PANTOPRAZOLE 40 MG TABLET PO SCH (09:24)
[2019-09-02] MEDS: SEVELAMER CARBONATE 800 MG TABLET PO SCH ×5 (09:24→21:34)
[2019-09-02] MEDS: cloNIDine 0.1 MG TABLET PO SCH (09:28)
[2019-09-02] MEDS: ROSUVASTATIN 10 MG TABLET PO SCH (21:34)
[2019-09-02] MEDS: METOPROLOL SUCCINATE XL 25 MG TABLET PO SCH (21:34)
[2019-09-03] MEDS ORDERED: hydrALAZINE 20 MG/1 ML VIAL IV ONE (00:55)
[2019-09-03 07:13] LABS: Basophils % 0.5 % (0.0-0.8); Eosinophils # 0.6 10*3/uL (0.0-0.87); Eosinophils % 10.3 % (0.00-10.9); Hematocrit 24.7 VOL% (42.0-52.0); Hemoglobin 7.9 GM/DL (14.0-18.0); Immature Granulocytes % 0.2 %; Immature Granulocytes Absolute 0.01 #; Lymphocytes # 0.9 10*3/uL (1.4-4.0); Lymphocytes % 16.7 % (21.2-54.2); Mean Corpuscular Volume 94.3 FL (87-102); Mean Platelet Volume 9.3 FL (9.6-12.0); Neutrophils % 62.3 % (38.7-73.9); Platelet Count 146 T/CUMM (130-400); Red Blood Count 2.62 MC/CUMM (3.8-5.5); Red Cell Distribution Width 13.3 % (9.3-17.3); White Blood Count 5.6 T/CUMM (4-12)
[2019-09-03] MEDS: PANTOPRAZOLE 40 MG TABLET PO SCH (09:01)
[2019-09-03] MEDS: SEVELAMER CARBONATE 800 MG TABLET PO SCH ×3 (09:01→13:20)
[2019-09-03] MEDS: SODIUM CHLORIDE 0.9% 250 ML IV SCH ×3 (09:05→15:21)
[2019-09-03] MEDS ORDERED: HEPARIN 10,000 UNIT/10 ML VIAL IV PRN (14:21)
[2019-09-03] MEDS: cloNIDine 0.1 MG TABLET PO SCH (16:02)
[2019-09-03 16:26] VITALS: BP 161/81
[2019-09-04 11:16] LABS: von Willebrand Factor Activity 194 % (55 - 200)
== END 2019-09-03 16:15 | disposition home health service (06) | DRG 987 ==
LOC: N.ED 13:45 → N.EDINP 15:11 → N.3E 15:40
PROVIDERS: ADMIT Surgery; ATTEND Surgery

== ENCOUNTER 2022-01-13 06:13 | Observation (INO) ==
[2022-01-13] MEDS ORDERED: ONDANSETRON 4 MG/2 ML VIAL IV STA (06:27)
[2022-01-13] MEDS ORDERED: fentaNYL 100 MCG/2 ML VIAL IV STA (06:28)
[2022-01-13 06:45] LABS: Eosinophils # 0.2 10*3/uL (0.0-0.87); Eosinophils % 4.3 % (0.00-10.9); Hematocrit 33.4 VOL% (42.0-52.0); Hemoglobin 11.4 GM/DL (14.0-18.0); Immature Granulocytes % 0.2 %; Immature Granulocytes Absolute 0.01 #; Lymphocytes % 23.8 % (21.2-54.2); Mean Corpuscular HGB Conc 34.1 GM/DL (32-36); Mean Corpuscular Volume 88.6 FL (87-102); Mean Platelet Volume 10.1 FL (9.6-12.0); Monocytes # 0.8 10*3/uL (0.11-0.8); Neutrophils % 50.7 % (38.7-73.9); Platelet Count 109 T/CUMM (130-400); Red Blood Count 3.77 MC/CUMM (3.8-5.5); Red Cell Distribution Width 14.1 % (9.3-17.3); White Blood Count 4.2 T/CUMM (4-12)
[2022-01-13 07:03] LABS: Eosinophils 10 % (0-10); Hypochromia Slight; Lymphocytes 18 % (20-55); Total Cells Counted 100
[2022-01-13 07:04] LABS: Microcytosis 1+; Ovalocytes Slight; Platelet Estimate Decreased
[2022-01-13 07:20] LABS: Albumin 3.2 G/DL (3.4-5.0); Bilirubin,Total 0.6 MG/DL (0.20-1.00); Calcium 9.5 MG/DL (8.5-10.1); Osmolality,Calculated 276.2 MOS/KG (273-304); Potassium 3.6 MMOL/L (3.5-5.1)
[2022-01-13] MEDS ORDERED: ERTAPENEM 1,000 MG in SODIUM CHLORIDE 0.9% 100 ML IV SCH (08:30)
[2022-01-13] MEDS ORDERED: ERTAPENEM 500 MG in SODIUM CHLORIDE 0.9% 100 ML IV SCH (09:00)
[2022-01-13] MEDS ORDERED: hydrALAZINE 20 MG/1 ML VIAL IV PRN (09:17)
[2022-01-13] MEDS ORDERED: ACETAMINOPHEN 325 MG TABLET PO PRN (09:17)
[2022-01-13] MEDS ORDERED: DEXTROSE 10% 250 ML BAG IV PRN (09:17)
[2022-01-13] MEDS ORDERED: ONDANSETRON 4 MG/2 ML VIAL IV PRN (09:17)
[2022-01-13] MEDS ORDERED: GLUCAGON 1 MG VIAL IM PRN (09:17)
[2022-01-13] MEDS: metroNIDAZOLE INJ 500 MG/100 ML PREMIX IV SCH ×2 (10:22→18:34)
[2022-01-13] MEDS: CIPROFLOXACIN INJ 400 MG/200 ML PREMIX IV SCH (21:15)
[2022-01-13] MEDS: DORZOLAMIDE/TIMOLOL OPH SOLN 10 ML BOTTLE LEFT EYE SCH (21:16)
[2022-01-13] MEDS: ROSUVASTATIN 10 MG TABLET PO SCH (21:17)
[2022-01-13] MEDS: minoxidiL 2.5 MG TABLET PO SCH (21:18)
[2022-01-14] MEDS: metroNIDAZOLE INJ 500 MG/100 ML PREMIX IV SCH ×3 (01:57→18:02)
[2022-01-14 05:50] LABS: Basophils % 0.6 % (0.0-0.8); Eosinophils # 0.2 10*3/uL (0.0-0.87); Hematocrit 34.6 VOL% (42.0-52.0); Hemoglobin 11.5 GM/DL (14.0-18.0); Immature Granulocytes % 0.3 %; Immature Granulocytes Absolute 0.01 #; Lymphocytes # 0.9 10*3/uL (1.4-4.0); Lymphocytes % 26.4 % (21.2-54.2); Mean Corpuscular HGB Conc 33.2 GM/DL (32-36); Mean Corpuscular Volume 88.9 FL (87-102); Mean Platelet Volume 10.1 FL (9.6-12.0); Monocytes # 0.6 10*3/uL (0.11-0.8); Monocytes % 18.4 % (1.7-12.7); Neutrophils % 49.3 % (38.7-73.9); Platelet Count 122 T/CUMM (130-400); Red Blood Count 3.89 MC/CUMM (3.8-5.5); Red Cell Distribution Width 14.1 % (9.3-17.3); White Blood Count 3.4 T/CUMM (4-12)
[2022-01-14 06:16] LABS: Eosinophils 6 % (0-10); Lymphocytes 33 % (20-55); Total Cells Counted 100
[2022-01-14 06:17] LABS: Microcytosis Slight; Ovalocytes Slight; Platelet Estimate Adequate; Tear Drop Cells Slight
[2022-01-14 06:18] LABS: Calcium 9.4 MG/DL (8.5-10.1); Osmolality,Calculated 270.4 MOS/KG (273-304); Potassium 3.5 MMOL/L (3.5-5.1)
[2022-01-14] MEDS: METOPROLOL SUCCINATE XL 25 MG TABLET PO SCH (08:26)
[2022-01-14] MEDS: PANTOPRAZOLE 40 MG TABLET PO SCH (08:26)
[2022-01-14] MEDS: amLODIPine 2.5 MG TABLET PO SCH (08:26)
[2022-01-14] MEDS: minoxidiL 2.5 MG TABLET PO SCH ×2 (08:26→20:14)
[2022-01-14] MEDS: DORZOLAMIDE/TIMOLOL OPH SOLN 10 ML BOTTLE LEFT EYE SCH ×2 (08:33→20:19)
[2022-01-14] MEDS: CIPROFLOXACIN INJ 400 MG/200 ML PREMIX IV SCH (13:59)
[2022-01-14] MEDS: ROSUVASTATIN 10 MG TABLET PO SCH (20:14)
[2022-01-15] MEDS: metroNIDAZOLE INJ 500 MG/100 ML PREMIX IV SCH (01:42)
[2022-01-15] MEDS: PANTOPRAZOLE 40 MG TABLET PO SCH (05:40)
[2022-01-15 05:45] LABS: Eosinophils # 0.2 10*3/uL (0.0-0.87); Eosinophils % 5.1 % (0.00-10.9); Hemoglobin 11.3 GM/DL (14.0-18.0); Immature Granulocytes % 0.3 %; Immature Granulocytes Absolute 0.01 #; Lymphocytes # 0.9 10*3/uL (1.4-4.0); Lymphocytes % 28.3 % (21.2-54.2); Mean Corpuscular HGB Conc 34.2 GM/DL (32-36); Mean Corpuscular Volume 88.9 FL (87-102); Mean Platelet Volume 9.9 FL (9.6-12.0); Monocytes # 0.5 10*3/uL (0.11-0.8); Monocytes % 17.4 % (1.7-12.7); Neutrophils % 47.9 % (38.7-73.9); Platelet Count 118 T/CUMM (130-400); Red Blood Count 3.71 MC/CUMM (3.8-5.5); Red Cell Distribution Width 13.9 % (9.3-17.3); White Blood Count 3.1 T/CUMM (4-12)
[2022-01-15 06:15] LABS: Eosinophils 7 % (0-10); Hypochromia Slight; Lymphocytes 30 % (20-55); Total Cells Counted 100
[2022-01-15 06:15] LABS: Calcium 9.6 MG/DL (8.5-10.1); Osmolality,Calculated 278.1 MOS/KG (273-304); Potassium 3.9 MMOL/L (3.5-5.1)
[2022-01-15 08:22] VITALS: BP 129/70
[2022-01-15] MEDS ORDERED: metroNIDAZOLE 500 MG TABLET PO SCH (09:00)
[2022-01-15] MEDS: amLODIPine 2.5 MG TABLET PO SCH (12:59)
[2022-01-15] MEDS: minoxidiL 2.5 MG TABLET PO SCH (12:59)
[2022-01-15] MEDS: METOPROLOL SUCCINATE XL 25 MG TABLET PO SCH (13:00)
[2022-01-15] MEDS: DORZOLAMIDE/TIMOLOL OPH SOLN 10 ML BOTTLE LEFT EYE SCH (13:00)
[2022-01-15] MEDS ORDERED: CIPROFLOXACIN 500 MG TABLET PO SCH (21:00)
== END 2022-01-15 13:59 | disposition home or self-care (01) ==
LOC: EDUNIT# → EDBD → N.ED 06:13 → SUATTDRO 09:17 → N.EDINP 09:17 → INTOOBSV 09:17 → N.5E 10:25
PROVIDERS: ADMIT Internal Medicine; ATTEND Internal Medicine Geriatric Medicine